=== PATIENT | male | born 1955 | race Caucasian/White ===

== ENCOUNTER → 2018-04-05 | Outpatient (CLI) | payer BC ==
--- NOTE | 2018-04-06 08:13 | CT ---
EXAMINATION TYPE: CT abdomen pelvis w con DATE OF EXAM: 04/05/2018 COMPARISON: NONE HISTORY: LLQ pain with decreased bowel movements and appetite CT DLP: 1514 mGycm Automated exposure control for dose reduction was used. TECHNIQUE: Helical acquisition of images was performed from the lung bases through the pelvis. CONTRAST: Performed with Oral Contrast and with IV Contrast, patient injected with 100 mL of Isovue 300. FINDINGS: LUNG BASES: No significant abnormality is appreciated. LIVER/GB: Hepatic parenchyma is diffusely hypoattenuated in comparison to that of the spleen, most co mmonly seen in hepatic steatosis. This finding limits evaluation for hepatic masses. No gross evidenc e of hepatic mass is seen. No intrahepatic biliary ductal dilatation. No cholelithiasis PANCREAS: No significant abnormality is seen. No ductal dilatation. SPLEEN: No significant abnormality is seen. ADRENALS: No significant abnormality is seen. KIDNEYS: Kidneys enhance and excrete symmetrically without hydronephrosis. FREE AIR: No free air is visualized. REPRODUCTIVE ORGANS: Prostate gland is diffusely heterogenous containing few central zone calcificati ons. Very small bilateral fat filled inguinal hernias are noted. There is also a subcentimeter fat fi lled umbilical hernia. URINARY BLADDER: Tiny wrinkle remnant is noted. Urinary bladder is incompletely distended. ADENOPATHY: No greater than 1 cm short axis lymph nodes are seen within the abdomen or pelvis. OSSEOUS STRUCTURES: Very minimal multilevel degenerative changes are seen of the visualized spine. G eographic peripherally sclerotic regions within the left femoral head and to a lesser degree on the r ight likely represent degenerative change with subchondral cysts/geodes, however MR could be performe d to evaluate for avascular necrosis. No current subchondral collapse. BOWEL: There is long segment bowel wall thickening of the sigmoid colon with numerous surrounding di verticula and minimal pericolonic fat stranding as well as fascial thickening extending posteriorly t o abut the left ureter. No pericolonic fluid collection is seen. No pneumoperitoneum. Appendix is con trast-filled and within normal limits. No bowel dilatation to suggest obstruction. OTHER: Moderate calcific and noncalcific atheromatous plaquing is seen of the abdominal aorta and its branches. Abdominal aorta is of normal course and caliber. IMPRESSION: 1. FINDINGS COMPATIBLE WITH ACUTE UNCOMPLICATED SIGMOID DIVERTICULITIS. NO PNEUMOPERITONEUM OR MARION LONIC ABSCESS. 2. LEFT GREATER THAN RIGHT PERIPHERALLY SCLEROTIC FEMORAL HEAD LESIONS FAVORED TO REPRESENT DEGENERAT CRISTY CHANGE AND GEODE/SUBCHONDRAL CYSTS, HOWEVER FURTHER EVALUATION WITH MR COULD BE PERFORMED TO EVAL UATE FOR AVASCULAR NECROSIS. NO CURRENT EVIDENCE OF SUBCHONDRAL COLLAPSE. 3. HEPATIC STEATOSIS. A [place] level critical message alert has been initiated for Lon Saha MD via the [employer] Critical Results System on 04/06/2018 8:10 AM. This message alert has been sent to Lon rowe MD via the preferences provided by the clinician for the receipt of Radiology Critical Finding s. Message ID [id number].
== END | disposition home or self-care (01) ==
LOC: RADCTMAIN 17:11
PROVIDERS: ATTEND Surgery
DX: K76.0 Fatty (change of) liver, not elsewhere classified (principal)
CPT/HCPCS: 74177; Q9967

== ENCOUNTER → 2018-04-13 | Outpatient (CLI) | payer BC ==
--- NOTE | 2018-04-13 09:02 | US ---
EXAMINATION TYPE: US duplex aorta DATE OF EXAM: 04/13/2018 COMPARISON: CT 04/05/2018 CLINICAL HISTORY: I70.0 Atherosclerosis of aorta. EXAM MEASUREMENTS: Abdominal Aorta: Proximal: 2.3cm A/P Mid: 2.5cm A/P Distal: 2.3cm A/P Bifurcation: 1.2cm A/P right ALLYN and 1.0cm Transverse Left ALLYN Hyperechoic intimal wall changes are noted mid and distal aorta with ectatic appearance mid aorta. Color flow patency is noted throughout aorta and into bilateral common iliac arteries. IMPRESSION: No sonographic evidence of abdominal aortic aneurysm. Moderate atherosclerosis is seen th roughout without focal stenosis.
== END | disposition home or self-care (01) ==
LOC: RADUSWWP 08:05
PROVIDERS: ATTEND Family Medicine
DX: I70.0 Atherosclerosis of aorta (principal)
CPT/HCPCS: 93979

== ENCOUNTER → 2018-05-02 | Outpatient (CLI) | payer BC ==
--- NOTE | 2018-05-03 02:46 | MR ---
EXAMINATION TYPE: MR hip LT wo/w con DATE OF EXAM: 05/02/2018 COMPARISON: NONE HISTORY: Idiopathic aseptic necrosis of femur CONTRAST: Standard multiplanar, multisequence MRI departmental protocol utilizing 9.5 mL intravenous Gadavist g adolinium contrast. FINDINGS: On the STIR images there is abnormal increased signal throughout large area of the proximal left femur involving the femoral head and neck extending into the intertrochanteric region consisten t with edema. There is decreased signal in the subchondral left femoral head that measures 2 x 1 cm. There is a similar appearance of the right proximal femur involving a smaller area. I see no fracture line. There is no significant hip joint fluid. There is narrowing of hip joint spaces. The bony pelv is appears intact. There is no evidence of a pelvic mass. There is no sign of free fluid in the pelvi s. Bladder distends smoothly. There is no evidence of soft tissue mass. 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 This is worse on the left side with additional extensive bone edema involving the left femoral head and femoral neck. No f racture line seen. No significant collapse of the articular surfaces. Osteoarthritic narrowing of the hip joint spaces.
== END ==
LOC: RADMRIMAIN 07:09
PROVIDERS: ATTEND Family Medicine
DX: M87.852 Other osteonecrosis, left femur (principal); M87.851 Other osteonecrosis, right femur
CPT/HCPCS: 73723; A9581

== ENCOUNTER → 2018-06-19 | Outpatient (CLI) | payer BC ==
--- NOTE | 2018-06-19 22:22 | CT ---
EXAMINATION TYPE: CT brain wo/w con DATE OF EXAM: 06/19/2018 COMPARISON: HISTORY: Dizziness and memory loss x5 months. Transient memory loss per order. CT DLP: 2139.7 mGycm Automated exposure control for dose reduction was used. CONTRAST: CT scan of the head is performed without and with IV Contrast, patient injected with 100ml mL of Isov ue M300. FINDINGS: Noncontrast images show no acute intracranial hemorrhage or midline shift. There is ventricular and s ulcal prominence most prominent over the bilateral frontal lobes consistent with mild to borderline m oderate atrophy. Irene-white matter differentiation is fairly well preserved. Postcontrast images dieudonne w no suspicious enhancing intraparenchymal mass. The globes are intact and the visualized sinuses are clear. Mastoid air cells show no suspicious opacification. IMPRESSION: Mild to borderline moderate symmetric diffuse frontal lobe atrophy. No suspicious enhance ment noted.
--- NOTE | 2018-06-20 11:26 | US ---
EXAMINATION TYPE: US carotid duplex BILAT DATE OF EXAM: 06/19/2018 COMPARISON: NONE CLINICAL HISTORY: Transient memory loss R41.3. EXAM MEASUREMENTS: RIGHT: Peak Systolic Velocity (PSV) cm/sec ----- Right CCA: 75.3 ----- Right ICA: 75.2 ----- Right ECA: 82.6 ICA/CCA ratio: 1.0 RIGHT: End Diastole cm/sec ----- Right CCA: 19.1 ----- Right ICA: 29.9 ----- Right ECA: 10.9 LEFT: Peak Systolic Velocity (PSV) cm/sec ----- Left CCA: 73.2 ----- Left ICA: 75.3 ----- Left ECA: 87.5 ICA/CCA ratio: 1.0 LEFT: End Diastole cm/sec ----- Left CCA: 20.0 ----- Left ICA: 29.3 ----- Left ECA: 10.8 VERTEBRALS (direction of flow): Right Vertebral: Antegrade Left Vertebral: Antegrade Rhythm: Normal No significant velocity elevations, mild plaque. Atheromatous plaquing and intimal thickening is present bilaterally. IMPRESSION: Intimal thickening atheromatous plaquing present bilaterally without significant flow-li miting stenosis. Criteria for Assigning % of Stenosis / Diameter reduction (Estimation based on the indirect measurements of the internal carotid artery velocities (ICA PSV). 1. Normal (no stenosis)=ICA PSV < 125 cm/s: ratio < 2.0: ICA EDV<40 cm/s. 2. Less than 50% stenosis=ICA PSV < 125 cm/s: ratio < 2.0: ICA EDV<40 cm/s. 3. 50 to 69% stenosis=ICA PSV of 125 to 230 cm/s: ration 2.0 ? 4.0: ICA EDV 40-100 cm/s. 4. Greater than 70% stenosis to near occlusion= ICA PSV > 230 cm/s: ratio > 4.0: ICA EDV > 100 cm/s. 5. Near occlusion= ICA PSV velocities may be low or undetectable: variable ratio and ICA EDV. 6. Total occlusion=unable to detect flow.
== END | disposition home or self-care (01) ==
LOC: RADCTMAIN 16:22
PROVIDERS: ATTEND Family Medicine
DX: G31.9 Degenerative disease of nervous system, unspecified (principal); I67.2 Cerebral atherosclerosis; R41.3 Other amnesia
CPT/HCPCS: 93880; 70470; Q9967

== ENCOUNTER → 2018-06-29 | Outpatient (CLI) | payer BC ==
--- NOTE | 2018-06-29 15:12 | CT ---
EXAMINATION TYPE: CT abdomen pelvis w con DATE OF EXAM: 06/29/2018 COMPARISON: 04/05/2018 HISTORY: LLQ pain CT DLP: 761.4 mGycm Automated exposure control for dose reduction was used. TECHNIQUE: Helical acquisition of images was performed from the lung bases through the pelvis. CONTRAST: Performed with Oral Contrast and with IV Contrast, patient injected with 100 mL of Isovue 300. FINDINGS: LUNG BASES: Punctate 2 mm right pulmonary nodule seen on series 4 image 33 within the posterior right lower lobe. This is not within the [id number] on the prior exam. LIVER/GB: Hepatic parenchyma is diffusely hypoattenuated in comparison to that of the spleen, most co mmonly seen in hepatic steatosis. This finding limits evaluation for hepatic masses. No gross evidenc e of hepatic mass is seen. No intrahepatic biliary ductal dilatation. No cholelithiasis PANCREAS: No significant abnormality is seen. No ductal dilatation. SPLEEN: No splenomegaly. ADRENALS: No nodularity or thickening. KIDNEYS: No significant abnormality is seen. FREE AIR: No free air is visualized. REPRODUCTIVE ORGANS: Prostate gland is again diffusely heterogenous. Very small bilateral fat filled inguinal hernias are again seen. Subcentimeter fat filled umbilical hernia is also again noted. URINARY BLADDER: Urinary bladder is nondistended. ADENOPATHY: No greater than 1 cm short axis lymph nodes are seen within the abdomen or pelvis. OSSEOUS STRUCTURES: Again there are findings within the femoral heads suggestive of avascular necros is with serpiginous linear sclerotic bands. Alternatively degenerative geodes could create this findi ng. No current evidence of subchondral collapse of the femoral heads. Minimal multilevel degenerative changes of the spine are seen. BOWEL: There is focal inflammatory fat stranding surrounding the descending colon and proximal sigmo id colon with adjacent fascial plane thickening surrounding multiple diverticula. This is within a re latively short segment and therefore represents acute diverticulitis. No evidence of pneumoperitoneum is seen at this time or pericolonic fluid collection to suggest abscess. Long segment bowel wall thi ckening is seen of the sigmoid colon suggesting a chronic component. There is no dilated large or sma ll bowel to suggest reactive ileus or obstruction. IMPRESSION: 1. Findings of acute on chronic descending colonic and sigmoid uncomplicated diverticulitis with no c urrent pericolonic abscess or pneumoperitoneum. These findings have progressed from the prior. Given the persistence colonoscopy could be performed to ensure no underlying inciting neoplasm. 2. Findings again suggest bilateral femoral head avascular necrosis without current subchondral colla pse. MRI could further evaluate/confirm these findings. A [place] level critical message alert has been initiated for Lon Saha MD via the [employer] Critical Results System on 06/29/2018 3:09 PM. This message alert has been sent to Lon cohen MD via the preferences provided by the clinician for the receipt of Radiology Critical Findings . Message ID [id number].
== END | disposition home or self-care (01) ==
LOC: RADCTMAIN 12:39
PROVIDERS: ATTEND Surgery
DX: K57.32 Diverticulitis of large intestine without perforation or abscess without bleeding (principal)
CPT/HCPCS: 74177; Q9967

== ENCOUNTER → 2018-08-04 | Outpatient (CLI) | payer BC ==
--- NOTE | 2018-08-04 16:37 | MR ---
EXAMINATION TYPE: MR angio head wo con DATE OF EXAM: 08/04/2018 COMPARISON: NONE HISTORY: Dizziness/giddiness TECHNIQUE: Time of flight images focusing on the [place] were performed without contrast.. 2-D and 3-D postprocessing imaging is performed on MRI scanner. FINDINGS: There is codominant vertebral basilar system. Vertebral arteries are patent to basilar junc tion. There is hypoplastic left P1 segment with filling of left P2 segment due to patent posterior co mmunicating artery on the left. There is hypoplastic right posterior communicating artery noted. Images of the anterior circulation show patent anterior communicating artery. There is no significant focal stenosis or aneurysmal change in the anterior circulation. IMPRESSION: No aneurysmal change at the level of the [place].
--- NOTE | 2018-08-04 17:24 | MR ---
EXAMINATION TYPE: MR brain wo/w con DATE OF EXAM: 08/04/2018 COMPARISON: CT brain 06/19/2018 HISTORY: Dizziness/giddiness TECHNIQUE: Multiplanar, multisequence images of the brain and brainstem is performed without and with IV contras t, utilizing 7.5 mL intravenous Gadavist . FINDINGS: Diffusion weighted images demonstrate no evidence of a recent infarct or other diffusion ab normality. White matter: There are approximately 20-25 areas of abnormal signal scattered throughout the white m atter bilaterally. All measure less than 5 mm. No callosal lesions. No lesions perpendicular to the v entricular system. No enhancing lesions. There are changes of chronic sinusitis. Mild generalized degenerative change seen. Partially empty se lla turcica noted. Craniocervical junction maintained. No enhancing mass or mass effect. No cerebellopontine angle mass. IMPRESSION: 1. Mild degenerative change and nonspecific white matter changes. 2. Changes of chronic sinusitis
== END | disposition home or self-care (01) ==
LOC: RADMRIMAIN 15:31
PROVIDERS: ATTEND Family Medicine
DX: R90.89 Other abnormal findings on diagnostic imaging of central nervous system (principal); J32.9 Chronic sinusitis, unspecified
CPT/HCPCS: 70544; 70553; A9581

== ENCOUNTER → 2018-08-15 | Outpatient (CLI) | payer BC ==
--- NOTE | 2018-08-15 22:43 | CT ---
EXAMINATION TYPE: CT abdomen pelvis w con DATE OF EXAM: 08/15/2018 COMPARISON: 06/29/2018 HISTORY: 63-year-old male with pain, diverticulitis TECHNIQUE: Contiguous axial scanning of the abdomen and pelvis following administration of 100 ml Iso christoph 300 IV contrast. Delayed images through the kidneys and coronal/sagittal reconstructions perform ed. CT DLP: 1115 mGycm Automated exposure control for dose reduction was used. FINDINGS: Heart normal size without pericardial effusion. Lung bases clear without pleural effusion. Liver upper limits of normal in size at 17.5 cm. No focal lesion seen. No biliary ductal dilatation. Portal venous system is patent. Small hiatal hernia. Gallbladder, adrenal glands, kidneys, spleen, and pancreas appear within normal limits. Fusiform ectasia of the infrarenal abdominal aorta at 2.6 cm with mild atherosclerotic calcifications . Scattered prominent retroperitoneal lymph nodes show large fatty hilum measure up to 1.1 cm, unchange d from 06/29/2018 likely reactive/post inflammatory. No dilated small bowel, free fluid, or free air. There are no abnormal appendix. Oral contrast progressed through the lower descending colon. There is minimal residual strandy edema adjacent to the lower descending colon but were resolution of the previous wall thickening. There is persistent circumferential wall thickening along the proximal to mid sigmoid colon, axial im age 71 may relate to incomplete distention. Bladder is urine distended. No abnormal fluid collection in the pelvis or pelvic lymphadenopathy. Bones: There is bilateral femoral head AVN without subarticular collapse. Bilateral L5 hemisacralizat ion with degenerative disc disease lower lumbar spine. No osseous destructive process. IMPRESSION: 1. IMPROVEMENT IN THE PREVIOUS ACUTE DIVERTICULITIS ALONG THE LOWER DESCENDING COLON. MILD RESIDUAL S TRANDY EDEMA REMAINS. 2. PERSISTENT CIRCUMFERENTIAL WALL THICKENING OF THE PROXIMAL TO MID SIGMOID COLON WHICH MAY RELATE T O CHRONIC DIVERTICULITIS. DIRECT VISUALIZATION IF ROUTINE SCREENING COLONOSCOPY IS NOT BEING PERFORME D. 3. SMALL HIATAL HERNIA. 4. BILATERAL FEMORAL HEAD AVN. CORRELATE FOR PATIENT RISK FACTORS.
== END | disposition home or self-care (01) ==
LOC: RADCTMAIN 14:32
PROVIDERS: ATTEND Family Medicine
DX: K44.9 Diaphragmatic hernia without obstruction or gangrene (principal); K57.32 Diverticulitis of large intestine without perforation or abscess without bleeding
CPT/HCPCS: 74177; Q9967

== ENCOUNTER 2019-12-31 01:26 | Emergency (ER) | payer BC ==
[2019-12-31] MEDS ORDERED: SODIUM CHLORIDE 0.9% 1,000 ML IV ONE (01:43)
--- NOTE | 2019-12-31 01:54 | CT ---
EXAMINATION TYPE: CT brain ferny wo con DATE OF EXAM: 12/31/2019 COMPARISON: CT brain 06/19/2018 HISTORY: Patient presents for neuro deficits. CT DLP: 1559.4 mGycm Automated exposure control for dose reduction was used. Multiple axial sections were obtained of the brain without contrast. Multiple axial sections were obtained from the skull base to T1 vertebra without contrast. FINDINGS: There is mild cerebral atrophy. There is no mass effect nor midline shift. There is no sign of intrac ranial hemorrhage. Calvarium is intact. The skull base is intact. There is no evidence of cerebral ed geovanna. Cervical vertebra have normal alignment. There is some narrowing and spurring from C4 to C6 vertebra. The facet joints are intact. The posterior elements are intact. There is no evidence of a fracture. IMPRESSION: Mild cerebral atrophy. No acute intracranial abnormality. No change. Minor degenerative disc changes in the lower cervical spine. No fracture seen.
--- NOTE | 2019-12-31 01:56 | XR ---
EXAMINATION TYPE: XR chest 1V portable DATE OF EXAM: 12/31/2019 COMPARISON: 10/31/2010 HISTORY: Cough and congestion TECHNIQUE: FINDINGS: Supine view shows no heart failure nor confluent pneumonic infiltrate. There is minimal ate lectasis right lung base. There are chest leads. Trachea is midline. IMPRESSION: Mild subsegmental atelectasis. This appears new compared to old exam. Normal heart.
--- NOTE | 2019-12-31 02:02 | ED ---
Altered Mental Status HPI - General Stated Complaint: altered mental status Time Seen by Provider: 12/31/19 01:36 Source: patient, EMS Mode of arrival: EMS Limitations: altered mental status - History of Present Illness Initial Comments: Patient's 64-year-old man brought to be evaluated for altered mental status. The patient had been in bed and then reportedly had gotten up and fell striking his brow. He was then slurring his speech and not able to support himself so EMS was phoned. Patient not able to give much history appears intoxicated versus delirious. MD Complaint: altered mental status, confusion -: hour(s) Severity: severe Consistency of Symptoms: unknown Associated Symptoms: syncope, difficulty walking - Related Data Allergies Allergy/AdvReac Type Severity Reaction Status Date / Time No Known Allergies Allergy Verified 12/31/19 02:06 Review of Systems ROS Statement: Those systems with pertinent positive or pertinent negative responses have been documented in the HPI. ROS Other: All systems not noted in ROS Statement are negative. Limitations: ROS unobtainable due to patients medical condition Past Medical History Past Medical History: Unable to Obtain History of Any Multi-Drug Resistant Organisms: Unobtainable Past Surgical History: Unable to Obtain Past Psychological History: Unable to Obtain Smoking Status: Unknown if ever smoked Past Alcohol Use History: Abuse, Daily, Heavy Past Drug Use History: Unable to Obtain General Exam Limitations: no limitations General appearance: appears intoxicated, obtunded Head exam: Present: normocephalic Eye exam: Present: PERRL, EOMI, nystagmus, periorbital swelling. Absent: scleral icterus, conjunctival injection, periorbital tenderness ENT exam: Present: normal oropharynx Neck exam: Present: normal inspection, full ROM. Absent: tenderness, meningismus Respiratory exam: Present: normal lung sounds bilaterally. Absent: respiratory distress, wheezes, rales, rhonchi, stridor, chest wall tenderness Cardiovascular Exam: Present: regular rate, normal rhythm, normal heart sounds. Absent: systolic murmur, diastolic murmur, rubs, gallop GI/Abdominal exam: Present: soft. Absent: distended, tenderness, guarding, rebound, rigid, mass Extremities exam: Present: normal inspection, normal capillary refill. Absent: pedal edema, calf tenderness Back exam: Present: normal inspection. Absent: CVA tenderness (R), CVA tenderness (L), vertebral tenderness Neurological exam: Present: altered, CN II-XII intact, motor sensory deficit, other (Patient confused and disoriented with this mildly slurred speech and mild ataxia. No focal neurologic findings). Absent: oriented X3 (Patient is oriented to person) Skin exam: Present: warm, dry, normal color, other (Laceration to left brow approximately 2 cm.) Course Vital Signs 12/31/19 12/31/19 12/31/19 01:30 01:45 02:00 Temperature 97.4 F L 97.4 F L Pulse Rate 78 77 76 Respiratory 14 14 14 Rate Blood Pressure 131/88 137/87 133/77 O2 Sat by Pulse 97 98 97 Oximetry 12/31/19 12/31/19 12/31/19 02:15 02:30 02:45 Temperature Pulse Rate 75 78 72 Respiratory 15 15 15 Rate Blood Pressure 120/81 126/83 112/78 O2 Sat by Pulse 98 98 96 Oximetry 12/31/19 12/31/19 12/31/19 03:15 03:45 07:42 Temperature 97.8 F Pulse Rate 72 73 81 Respiratory 16 16 15 Rate Blood Pressure 143/84 141/65 147/89 O2 Sat by Pulse 97 96 98 Oximetry Procedures - Laceration Laceration #1 Consent Obtained: verbal consent Indication: laceration Site: face Description: linear Depth: simple, single layer Type of Sutures: other (Skin glue) Technique: simple, interrupted Patient Tolerated Procedure: well, no complications Medical Decision Making - Lab Data Result diagrams: 12/31/19 01:37 12/31/19 01:37 Lab Results 12/31/19 12/31/19 12/31/19 Range/Units 01:37 01:37 01:37 WBC 7.6 (3.8-10.6) k/uL RBC 4.46 (4.30-5.90) m/uL Hgb 14.5 (13.0-17.5) gm/dL Hct 45.1 (39.0-53.0) % MCV 101.2 H (80.0-100.0) fL MCH 32.6 (25.0-35.0) pg MCHC 32.2 (31.0-37.0) g/dL RDW 12.4 (11.5-15.5) % Plt Count 218 (150-450) k/uL Neutrophils % (Manual) 41 % Band Neutrophils % 1 % Lymphocytes % (Manual) 39 % Monocytes % (Manual) 15 % Eosinophils % (Manual) 4 % Neutrophils # (Manual) 3.10 (1.3-7.7) k/uL Lymphocytes # (Manual) 2.96 (1.0-4.8) k/uL Monocytes # (Manual) 1.14 H (0-1.0) k/uL Eosinophils # (Manual) 0.30 (0-0.7) k/uL Nucleated RBCs 0 (0-0) /100 WBC Manual Slide Review Performed PT 9.7 (9.0-12.0) sec INR 0.9 (<1.2) APTT 23.7 (22.0-30.0) sec Sodium 143 (137-145) mmol/L Potassium 4.8 (3.5-5.1) mmol/L Chloride 109 H (98-107) mmol/L Carbon Dioxide 24 (22-30) mmol/L Anion Gap 10 mmol/L BUN 20 (9-20) mg/dL Creatinine 0.84 (0.66-1.25) mg/dL Est GFR (CKD-EPI)AfAm >90 (>60 ml/min/1.73 sqM) Est GFR (CKD-EPI)NonAf >90 (>60 ml/min/1.73 sqM) Glucose 103 H (74-99) mg/dL Calcium 8.9 (8.4-10.2) mg/dL Total Bilirubin 0.4 (0.2-1.3) mg/dL AST 56 (17-59) U/L ALT 40 (4-49) U/L Alkaline Phosphatase 44 (38-126) U/L Troponin I (0.000-0.034) ng/mL Total Protein 7.3 (6.3-8.2) g/dL Albumin 4.4 (3.5-5.0) g/dL Urine Color Urine Appearance (Clear) Urine pH (5.0-8.0) Ur Specific [place] (1.001-1.035) Urine Protein (Negative) Urine Glucose (UA) (Negative) Urine Ketones (Negative) Urine Blood (Negative) Urine Nitrite (Negative) Urine Bilirubin (Negative) Urine Urobilinogen (<2.0) mg/dL Ur Leukocyte Esterase (Negative) Urine Opiates Screen (NotDetected) Ur Oxycodone Screen (NotDetected) Urine Methadone Screen (NotDetected) Ur Propoxyphene Screen (NotDetected) Ur Barbiturates Screen (NotDetected) U Tricyclic Antidepress (NotDetected) Ur Phencyclidine Scrn (NotDetected) Ur Amphetamines Screen (NotDetected) U Methamphetamines Scrn (NotDetected) U Benzodiazepines Scrn (NotDetected) Urine Cocaine Screen (NotDetected) U Marijuana (THC) Screen (NotDetected) Serum Alcohol 286 H* mg/dL 12/31/19 12/31/19 12/31/19 Range/Units 01:37 03:20 03:20 WBC (3.8-10.6) k/uL RBC (4.30-5.90) m/uL Hgb (13.0-17.5) gm/dL Hct (39.0-53.0) % MCV (80.0-100.0) fL MCH (25.0-35.0) pg MCHC (31.0-37.0) g/dL RDW (11.5-15.5) % Plt Count (150-450) k/uL Neutrophils % (Manual) % Band Neutrophils % % Lymphocytes % (Manual) % Monocytes % (Manual) % Eosinophils % (Manual) % Neutrophils # (Manual) (1.3-7.7) k/uL Lymphocytes # (Manual) (1.0-4.8) k/uL Monocytes # (Manual) (0-1.0) k/uL Eosinophils # (Manual) (0-0.7) k/uL Nucleated RBCs (0-0) /100 WBC Manual Slide Review PT (9.0-12.0) sec INR (<1.2) APTT (22.0-30.0) sec Sodium (137-145) mmol/L Potassium (3.5-5.1) mmol/L Chloride (98-107) mmol/L Carbon Dioxide (22-30) mmol/L Anion Gap mmol/L BUN (9-20) mg/dL Creatinine (0.66-1.25) mg/dL Est GFR (CKD-EPI)AfAm (>60 ml/min/1.73 sqM) Est GFR (CKD-EPI)NonAf (>60 ml/min/1.73 sqM) Glucose (74-99) mg/dL Calcium (8.4-10.2) mg/dL Total Bilirubin (0.2-1.3) mg/dL AST (17-59) U/L ALT (4-49) U/L Alkaline Phosphatase (38-126) U/L Troponin I <0.012 (0.000-0.034) ng/mL Total Protein (6.3-8.2) g/dL Albumin (3.5-5.0) g/dL Urine Color Light Yellow Urine Appearance Clear (Clear) Urine pH 5.0 (5.0-8.0) Ur Specific [place] 1.007 (1.001-1.035) Urine Protein Negative (Negative) Urine Glucose (UA) Negative (Negative) Urine Ketones Negative (Negative) Urine Blood Negative (Negative) Urine Nitrite Negative (Negative) Urine Bilirubin Negative (Negative) Urine Urobilinogen <2.0 (<2.0) mg/dL Ur Leukocyte Esterase Negative (Negative) Urine Opiates Screen Not Detected (NotDetected) Ur Oxycodone Screen Not Detected (NotDetected) Urine Methadone Screen Not Detected (NotDetected) Ur Propoxyphene Screen Not Detected (NotDetected) Ur Barbiturates Screen Not Detected (NotDetected) U Tricyclic Antidepress Not Detected (NotDetected) Ur Phencyclidine Scrn Not Detected (NotDetected) Ur Amphetamines Screen Not Detected (NotDetected) U Methamphetamines Scrn Not Detected (NotDetected) U Benzodiazepines Scrn Not Detected (NotDetected) Urine Cocaine Screen Not Detected (NotDetected) U Marijuana (THC) Screen Not Detected (NotDetected) Serum Alcohol mg/dL - EKG Data -: EKG Interpreted by Mn EKG shows normal: sinus rhythm, axis (Normal), intervals (Normal), QRS complexes (Normal), ST-T waves (Normal) Rate: normal (Rate 73 bpm) Interpretation: normal EKG Disposition Clinical Impression: Alcohol intoxication, Laceration of face Disposition: HOME SELF-CARE Condition: Good Instructions (If sedation given, give patient instructions): Laceration (ED), Alcohol Intoxication (ED) Is patient prescribed a controlled substance at d/c from ED?: No Referrals: Camilo Juarez MD [Primary Care Provider] - 1-2 days
[2019-12-31 02:03] LABS: HCT 45.1 % (39.0-53.0); HGB 14.5 gm/dL (13.0-17.5); MCH 32.6 pg (25.0-35.0); MCHC 32.2 g/dL (31.0-37.0); MCV 101.2 fL (80.0-100.0); Mean Platelet Volume 7.6; Platelet Count 218 k/uL (150-450); RBC 4.46 m/uL (4.30-5.90); RDW 12.4 % (11.5-15.5); WBC 7.6 k/uL (3.8-10.6)
[2019-12-31 02:08] LABS: INR 0.9 (<1.2); Partial Thromboplastin Time 23.7 sec (22.0-30.0); Prothrombin Time 9.7 sec (9.0-12.0)
[2019-12-31 02:10] LABS: ALT 40 U/L (4-49); African American GFR (CKD) >90 (>60 ml/min/1.73 sqM); Albumin 4.4 g/dL (3.5-5.0); Anion Gap 10 mmol/L; Blood Urea Nitrogen 20 mg/dL (9-20); Calcium 8.9 mg/dL (8.4-10.2); Carbon Dioxide 24 mmol/L (22-30); Chloride 109 mmol/L (98-107); Glucose 103 mg/dL (74-99); Non-African American GFR(CKD) >90 (>60 ml/min/1.73 sqM); Sodium 143 mmol/L (137-145); Total Bilirubin 0.4 mg/dL (0.2-1.3); Total Protein 7.3 g/dL (6.3-8.2)
[2019-12-31 02:13] LABS: AST 56 U/L (17-59); Alcohol 286 mg/dL; Potassium 4.8 mmol/L (3.5-5.1)
[2019-12-31 02:14] LABS: Alkaline Phosphatase 44 U/L (38-126)
[2019-12-31 02:52] LABS: Band Neutrophils % 1 %; Lymphocytes # (M) 2.96 k/uL (1.0-4.8); Monocytes # (M) 1.14 k/uL (0-1.0); Neutrophils % (M) 41 %; Nucleated Red Blood Cells 0 /100 WBC (0-0); Total Cells Counted 100
[2019-12-31 03:28] LABS: Appearance,Urine Clear (Clear); Bilirubin,Urine Negative (Negative); Blood,Urine Negative (Negative); Color,Urine Light Yellow; Glucose,Urine (UA) Negative (Negative); Ketones,Urine Negative (Negative); Leukocyte Esterase,Urine Negative (Negative); Nitrite,Urine Negative (Negative); Protein,Urine Negative (Negative); Specific Gravity,Urine 1.007 (1.001-1.035); Urobilinogen,Urine <2.0 mg/dL (<2.0)
[2019-12-31 03:37] LABS: Amphetamine Screen,Urine Not Detected (NotDetected); Barbiturate Screen,Urine Not Detected (NotDetected); Benzodiazepines Screen,Urine Not Detected (NotDetected); Cocaine Screen,Urine Not Detected (NotDetected); Methadone Screen, Urine Not Detected (NotDetected); Opiate Screen,Urine Not Detected (NotDetected); Oxycodone Screen, Urine Not Detected (NotDetected); Phencyclidine Screen,Urine Not Detected (NotDetected); Tricyclic Antidepressant,Urine Not Detected (NotDetected); Urn Cannabinoid Scrn Not Detected (NotDetected)
[2019-12-31] MEDS ORDERED: TOPICAL SKIN ADHESIVE 1 EACH AMP TOPICAL ONE (03:43)
[2019-12-31 09:36] VITALS: BP 149/99; PULSE 90; RESP 17; TEMP 98.2
== END 2019-12-31 09:36 | disposition home or self-care (01) ==
LOC: EC 01:26
DX: F10.129 Alcohol abuse with intoxication, unspecified (principal); S01.81XA Laceration without foreign body of other part of head, initial encounter
CPT/HCPCS: 12011; 36415; 70450; 71045; 72125; 80053; 80306; 80320; 81003; 84484; 85025; 85610; 85730; 93005; 96360; 99285

== ENCOUNTER → 2021-02-25 | Outpatient (CLI) | payer BC ==
--- NOTE | 2021-02-25 10:35 | XR ---
EXAMINATION TYPE: XR lumbosacral spine min 4V DATE OF EXAM: 02/25/2021 COMPARISON: None HISTORY: Low back pain TECHNIQUE: 5 view lumbar spine FINDINGS: There appear to be 4 lumbar type vertebral bodies. L1 may have rudimentary ribs. Plain film correlation be recommended prior to any surgical intervention. The pedicles are intact. Facet hypertrophy is present mild disc space narrowing is present at the low est lumbar level IMPRESSION: 1. 4 lumbar type vertebral bodies.
--- NOTE | 2021-02-25 10:46 | XR ---
EXAMINATION TYPE: XR Hip Bilateral and AP pelvis DATE OF EXAM: 02/25/2021 COMPARISON: None HISTORY: Low back pain TECHNIQUE: AP pelvis and two-view bilateral hips FINDINGS: Sacroiliac joint and symphysis pubis are normal. No acute fractures are evident. Femoral he ads articulate with the acetabulum. Minimal symmetrical joint space narrowing of bilateral hips may b e present. No acute fractures of the proximal femurs are evident. IMPRESSION: 1. Minimal degenerative joint changes bilateral hips
== END | disposition home or self-care (01) ==
LOC: RADXRMAIN 09:41
PROVIDERS: ATTEND Family Medicine
DX: M16.0 Bilateral primary osteoarthritis of hip (principal)
CPT/HCPCS: 72110; 73521

== ENCOUNTER → 2021-03-25 | Outpatient (CLI) | payer BC ==
--- NOTE | 2021-03-25 16:20 | XR ---
EXAMINATION TYPE: XR abdomen acute w cxr DATE OF EXAM: 03/25/2021 CLINICAL HISTORY: Lower abdominal pain with nausea. TECHNIQUE: Single frontal view of chest is obtained. Supine and upright views of the abdomen are acq uired. COMPARISON: Chest x-ray of December 31, 2019. CT abdomen and pelvis August 15, 2018 FINDINGS: The lungs are grossly clear on current study without pleural effusion or pneumothorax. Ca rdiac silhouette size appears within normal limits currently. Osseous structures are intact. Gas is noted in nondistended stomach and scattered small bowel loops. Gas and fecal material is seen in nondistended colon. Left-sided pelvic phlebolith. No free air. Sclerosis left femoral head consis tent with avascular necrosis is redemonstrated. IMPRESSION: 1. No acute pulmonary process. 2. Overall nonobstructive bowel gas pattern.
== END | disposition home or self-care (01) ==
LOC: RADXRMAIN 15:46
PROVIDERS: ATTEND Family Medicine
DX: R10.30 Lower abdominal pain, unspecified (principal); R11.0 Nausea
CPT/HCPCS: 74022

== ENCOUNTER → 2021-03-31 | Outpatient (CLI) | payer BC ==
--- NOTE | 2021-03-31 11:30 | US ---
EXAMINATION TYPE: US abdomen comp/pelvis limited DATE OF EXAM: 03/31/2021 COMPARISON: CT, US CLINICAL HISTORY: R10.9 Unspecified abdominal pain. constant hypogastric pain; history of diverticuli tis, weight loss 21 pounds in last month; nausea EXAM MEASUREMENTS: Liver Length: 14.1 cm Gallbladder Wall: 0.2 cm CBD: 0.3 cm Spleen: 10.1 cm Right Kidney: 10.9 x 6.9 x 6.9 cm Left Kidney: 11.6 x 5.6 x 6.6 cm Pancreas: Obscured by bowel gas Liver: heterogeneous appearance Gallbladder: wnl CBD: wnl Spleen: wnl Right Kidney: No hydronephrosis or masses seen Left Kidney: No hydronephrosis or masses seen Upper IVC: wnl Abd Aorta: ectatic appearance noted especially distally; A/P measure here = 2.6cm; intimal thickenin g is noted distally. Bladder: wnl; not prepped for full bladder assessment Bilateral Jets Seen yes IMPRESSION: 1. Heterogeneous pattern of liver is nonspecific could be associated with hepatic steatosis or hepati tis. Correlate clinically.
== END | disposition home or self-care (01) ==
LOC: RADUSWWP 10:32
PROVIDERS: ATTEND Family Medicine
DX: R93.2 Abnormal findings on diagnostic imaging of liver and biliary tract (principal)
CPT/HCPCS: 76700; 76857

== ENCOUNTER → 2021-03-31 | Outpatient (CLI) | payer BC | END | disposition home or self-care (01) | LOC: LABWHC1 10:22 | PROVIDERS: ATTEND Surgery | DX: Z20.822 Contact with and (suspected) exposure to COVID-19 (principal); R10.84 Generalized abdominal pain | CPT/HCPCS: U0003; C9803; U0005 ==

== ENCOUNTER 2021-04-10 16:38 | Inpatient (IN) | payer BC ==
[2021-04-10] MEDS ORDERED: SODIUM CHLORIDE 0.9% 1,000 ML IV STA ×2 (19:13→22:07)
[2021-04-10 19:30] LABS: HCT 42.9 % (39.0-53.0); HGB 13.6 gm/dL (13.0-17.5); MCHC 31.7 g/dL (31.0-37.0); MCV 97.8 fL (80.0-100.0); Mean Platelet Volume 8.3; Platelet Count 207 k/uL (150-450); RBC 4.39 m/uL (4.30-5.90); RDW 13.5 % (11.5-15.5); WBC 6.6 k/uL (3.8-10.6)
--- NOTE | 2021-04-10 19:38 | ED ---
Abdominal Pain HPI - General Chief Complaint: Abdominal Pain Stated Complaint: Abd Pain, Weakness Time Seen by Provider: 04/10/21 19:09 Source: patient Mode of arrival: ambulatory Limitations: no limitations - History of Present Illness Initial Comments: 65-year-old male with history of diverticulitis presented emergency Department with a chief complaint of abdominal pain. Patient reports his been having intermittent pain in the left lower quadrant region for the past several months. Reports he decreased his oral intake in order to help with his possible diverticulitis. Patient states his symptoms are not improved. Patient does have history of alcohol abuse as well and drinks about one bottle of wine daily. He denies any infectious or obstructive urinary symptoms. Denies hematuria, hematochezia or melena. Denies any nausea or vomiting or diarrhea. - Related Data Home Medications Medication Instructions Recorded Confirmed Atorvastatin Calcium [Lipitor] 10 mg PO DAILY 04/10/21 04/10/21 Levothyroxine Sodium [Synthroid] 200 mcg PO DAILY 04/10/21 04/10/21 Zolpidem Tartrate [Ambien Cr] 12.5 mg PO HS 04/10/21 04/10/21 Allergies Allergy/AdvReac Type Severity Reaction Status Date / Time No Known Allergies Allergy Verified 04/10/21 20:46 Review of Systems ROS Statement: Those systems with pertinent positive or pertinent negative responses have been documented in the HPI. ROS Other: All systems not noted in ROS Statement are negative. Past Medical History Past Medical History: Unable to Obtain Additional Past Medical History / Comment(s): neck pain History of Any Multi-Drug Resistant Organisms: Unobtainable Past Surgical History: Unable to Obtain Past Psychological History: Unable to Obtain Smoking Status: Never smoker Past Alcohol Use History: Abuse, Daily, Heavy Past Drug Use History: Unable to Obtain General Exam Limitations: no limitations General appearance: alert, in no apparent distress Head exam: Present: atraumatic, normocephalic, normal inspection Eye exam: Present: normal appearance, PERRL, EOMI Pupils: Present: normal accommodation ENT exam: Present: normal exam, normal oropharynx, mucous membranes moist, TM's normal bilaterally, normal external ear exam Neck exam: Present: normal inspection, full ROM. Absent: tenderness Respiratory exam: Present: normal lung sounds bilaterally. Absent: respiratory distress, wheezes, rales, rhonchi, stridor, chest wall tenderness, accessory muscle use Cardiovascular Exam: Present: regular rate, normal rhythm, normal heart sounds. Absent: systolic murmur GI/Abdominal exam: Present: soft, tenderness (Left lower quadrant tenderness). Absent: distended, guarding, rebound, rigid Extremities exam: Present: normal inspection, full ROM, normal capillary refill. Absent: tenderness, pedal edema, joint swelling Back exam: Present: normal inspection, full ROM. Absent: tenderness, CVA tenderness (R), CVA tenderness (L), muscle spasm, paraspinal tenderness, vertebral tenderness Neurological exam: Present: alert, oriented X3 Psychiatric exam: Present: normal affect, normal mood Skin exam: Present: warm, dry, intact, normal color Course Vital Signs 04/10/21 04/10/21 04/10/21 17:42 19:07 20:00 Temperature 98.5 F 98.3 F Pulse Rate 95 77 85 Respiratory 18 18 20 Rate Blood Pressure 106/75 108/70 O2 Sat by Pulse 99 96 97 Oximetry 04/10/21 04/10/21 04/10/21 21:00 21:56 22:00 Temperature Pulse Rate 80 81 84 Respiratory 18 20 20 Rate Blood Pressure 89/52 95/54 107/80 O2 Sat by Pulse 96 95 97 Oximetry Medical Decision Making - Medical Decision Making 55-year-old male presents to the emergency department with a chief complaint of abdominal pain. On physical examination left lower quadrant abdominal tenderness. Patient is history of chronic alcohol abuse. Elevated BUN and creatinine. Lipase of 2200. Patient appears to have pancreatitis. CT of the abdomen and pelvis reveals no signs of diverticulitis but there is diverticulosis. There is an 8 mm incidental finding in the left lower lobe. Concern for metastatic disease. Patient also has a finding of 2 large bilateral adrenal masses for which there is a concern of metastatic disease versus lympho ma. Patient given analgesia and IV fluids. Nothing by mouth. I spoke to Camilo Hardy NP who will admit for Dr. Noble. Case discussed with Oncology and consult GI on consult - Lab Data Result diagrams: 04/10/21 19:17 04/10/21 19:17 Lab Results 04/10/21 04/10/21 Range/Units 19:17 19:17 WBC 6.6 (3.8-10.6) k/uL RBC 4.39 (4.30-5.90) m/uL Hgb 13.6 (13.0-17.5) gm/dL Hct 42.9 (39.0-53.0) % MCV 97.8 (80.0-100.0) fL MCH 31.0 (25.0-35.0) pg MCHC 31.7 (31.0-37.0) g/dL RDW 13.5 (11.5-15.5) % Plt Count 207 (150-450) k/uL MPV 8.3 Neutrophils % (Manual) 56 % Band Neuts % (Manual) 10 % Lymphocytes % (Manual) 24 % Monocytes % (Manual) 5 % Eosinophils % (Manual) 4 % Basophils % (Manual) 1 % Neutrophils # (Manual) 4.30 (1.3-7.7) k/uL Lymphocytes # (Manual) 1.58 (1.0-4.8) k/uL Monocytes # (Manual) 0.33 (0-1.0) k/uL Eosinophils # (Manual) 0.26 (0-0.7) k/uL Basophils # (Manual) 0.07 (0-0.2) k/uL Nucleated RBCs 0 (0-0) /100 WBC Manual Slide Review Performed Poikilocytosis (manual Present Sodium 134 L (137-145) mmol/L Potassium 4.6 (3.5-5.1) mmol/L Chloride 99 (98-107) mmol/L Carbon Dioxide 22 (22-30) mmol/L Anion Gap 13 mmol/L BUN 27 H (9-20) mg/dL Creatinine 1.43 H (0.66-1.25) mg/dL Est GFR (CKD-EPI)AfAm 60 (>60 ml/min/1.73 sqM) Est GFR (CKD-EPI)NonAf 52 (>60 ml/min/1.73 sqM) Glucose 110 H (74-99) mg/dL Calcium 9.8 (8.4-10.2) mg/dL Total Bilirubin 0.8 (0.2-1.3) mg/dL AST 28 (17-59) U/L ALT 16 (4-49) U/L Alkaline Phosphatase 74 (38-126) U/L Total Protein 6.6 (6.3-8.2) g/dL Albumin 3.8 (3.5-5.0) g/dL Amylase 182 H (30-110) U/L Lipase 2226 H (23-300) U/L Disposition Clinical Impression: Pancreatitis Disposition: ADMITTED IP TO THIS [facility] Condition: Fair Instructions (If sedation given, give patient instructions): Pancreatitis (ED) Referrals: Camilo Juarez MD [Primary Care Provider] - 1-2 days Time of Disposition: 22:27
[2021-04-10 19:40] LABS: Potassium 4.6 mmol/L (3.5-5.1)
[2021-04-10 19:41] LABS: Albumin 3.8 g/dL (3.5-5.0); Calcium 9.8 mg/dL (8.4-10.2); Total Bilirubin 0.8 mg/dL (0.2-1.3); Total Protein 6.6 g/dL (6.3-8.2)
[2021-04-10 20:07] LABS: Band Neutrophils % 10 %; Basophils # (M) 0.07 k/uL (0-0.2); Eosinophils # (M) 0.26 k/uL (0-0.7); Lymphocytes # (M) 1.58 k/uL (1.0-4.8); Monocytes # (M) 0.33 k/uL (0-1.0); Neutrophils % (M) 56 %; Nucleated Red Blood Cells 0 /100 WBC (0-0); Poikilocytosis (M) Present; Total Cells Counted 100
--- NOTE | 2021-04-10 21:38 | CT ---
EXAMINATION TYPE: CT abdomen pelvis w con DATE OF EXAM: 04/10/2021 COMPARISON: CT 08/15/2018. Ultrasound 03/31/2021. HISTORY: Left lower quadrant abdominal pain. CT DLP: 1030 mGycm Automated exposure control for dose reduction was used. TECHNIQUE: Helical acquisition of images was performed from the lung bases through the pelvis. CONTRAST: Performed without Oral Contrast and with IV Contrast, patient injected with 80ml mL of Isovue 300. FINDINGS: LUNG BASES: 8 mm left lower lobe nodule. Otherwise no acute abnormality. LIVER/GB: No significant abnormality is appreciated. PANCREAS: No significant abnormality is seen. SPLEEN: No significant abnormality is seen. ADRENALS: Bilateral heterogeneous, hypoattenuating adrenal masses, measuring 6.3 x 5.3 cm on the left and 6.1 x 5.2 cm on the right. Associated surrounding fat stranding. KIDNEYS: No significant abnormality is seen. FREE AIR: No free air is visualized. RETROPERITONEAL ADENOPATHY: Otherwise no enlarged abdominal lymph nodes. REPRODUCTIVE ORGANS: No significant abnormality is seen URINARY BLADDER: No significant abnormality is seen. PELVIC ADENOPATHY: None visualized. OSSEOUS STRUCTURES: No significant abnormality is seen. BOWEL: Subtle mild fat stranding involving the proximal sigmoid colon diverticula. No bowel obstruct ion, free air or fluid. OTHER: None IMPRESSION: FINDINGS CONSISTENT WITH ACUTE SIGMOID COLONIC DIVERTICULOSIS WITHOUT COMPLICATION. INCIDENTAL LARGE BILATERAL ADRENAL MASSES. CONSIDERATIONS INCLUDE LYMPHOMA AND METASTATIC DISEASE. RE COMMEND APPROPRIATE WORKUP. ALSO 8 MM LEFT LOWER LOBE NODULE, CONCERNING FOR METASTATIC DISEASE.
[2021-04-10] MEDS ORDERED: NALOXONE 0.4 MG/ML 1 ML VIAL IV PRN (21:51)
[2021-04-10] MEDS ORDERED: MORPHINE SULFATE 4 MG/ML SYRINGE IVP PRN (22:07)
[2021-04-10] MEDS: SODIUM CHLORIDE 0.9% 1,000 ML IV SCH (22:20)
[2021-04-10 22:33] LABS: Appearance,Urine Clear (Clear); Bilirubin,Urine Negative (Negative); Blood,Urine Negative (Negative); Color,Urine Yellow; Glucose,Urine (UA) Negative (Negative); Ketones,Urine 1+ (Negative); Leukocyte Esterase,Urine Negative (Negative); Nitrite,Urine Negative (Negative); Protein,Urine Trace (Negative); Urobilinogen,Urine <2.0 mg/dL (<2.0)
[2021-04-11] MEDS: MELATONIN 3 MG TABLET PO PRN ×2 (01:02→21:00)
[2021-04-11] MEDS: HYDROmorphone 1 MG/ML 1 ML SYRINGE IVP PRN ×5 (02:08→21:00)
[2021-04-11] MEDS: SODIUM CHLORIDE 0.9% 1,000 ML IV SCH ×2 (05:13→13:39)
[2021-04-11] MEDS: PANTOPRAZOLE 40 MG/10 ML VIAL IVP SCH (09:53)
[2021-04-11 12:22] LABS: ALT 12 U/L (4-49); AST 23 U/L (17-59); African American GFR (CKD) 79 (>60 ml/min/1.73 sqM); Albumin 3.1 g/dL (3.5-5.0); Albumin/Globulin Ratio 1.2; Alkaline Phosphatase 58 U/L (38-126); Anion Gap 9 mmol/L; Blood Urea Nitrogen 23 mg/dL (9-20); Calcium 8.6 mg/dL (8.4-10.2); Carbon Dioxide 22 mmol/L (22-30); Chloride 104 mmol/L (98-107); Globulin 2.5 g/dL; Glucose 116 mg/dL (74-99); Non-African American GFR(CKD) 69 (>60 ml/min/1.73 sqM); Potassium 4.4 mmol/L (3.5-5.1); Sodium 135 mmol/L (137-145); Total Bilirubin 0.5 mg/dL (0.2-1.3); Total Protein 5.6 g/dL (6.3-8.2)
[2021-04-11 13:23] VITALS: BMI 26.4
[2021-04-11] MEDS: HYDROcodone/APAP 7.5-325MG 1 EACH TAB PO PRN ×2 (13:40→19:38)
--- NOTE | 2021-04-11 16:40 | P.HPIM ---
History of Present Illness patient in with complaints of abdominal pain sharp severe 10/10 severity in the left the upper quadrant. Patient is found to have elevated lipase. Patient had a computed tomography scan of the abdomen which showed other findings including mass lesions on bilateral adrenal glands and an 8 mm nodule in thelower lobe of the left lung.patient's abdominal pain is better patient is hungry.patient quit smoking more than 40 years ago. Patient doesn't have any significant medical history did admit to a 20 pound weight loss. Review of Systems REVIEW OF SYSTEMS: CONSTITUTIONAL: No fever, no malaise, no fatigue. HEENT: No recent visual problems or hearing problems. Denied any sore throat. CARDIOVASCULAR: No chest pain, orthopnea, PND, no palpitations, no syncope. PULMONARY: No shortness of breath, no cough, no hemoptysis. GASTROINTESTINAL: No diarrhea, no nausea, no vomiting, no abdominal pain. NEUROLOGICAL: No headaches, no weakness, no numbness. HEMATOLOGICAL: Denies any bleeding or petechiae. GENITOURINARY: Denies any burning micturition, frequency, or urgency. MUSCULOSKELETAL/RHEUMATOLOGICAL: Denies any joint pain, swelling, or any muscle pain. ENDOCRINE: Denies any polyuria or polydipsia. The rest of the 14-point review of systems is negative. Past Medical History Past Medical History: Thyroid Disorder Additional Past Medical History / Comment(s): neck pain. Divertic. History of Any Multi-Drug Resistant Organisms: Unobtainable Past Surgical History: Unable to Obtain Additional Past Surgical History / Comment(s): Cataracts. Sinus sx Past Anesthesia/Blood Transfusion Reactions: No Reported Reaction Smoking Status: Never smoker Past Alcohol Use History: Abuse, Daily, Heavy Additional Past Alcohol Use History / Comment(s): Last drink 3 weeks ago; drinks 1 bottle of wine per day Past Drug Use History: Unable to Obtain - Past Family History Father Family Medical History: Cancer Mother Family Medical History: Cancer Additional Family Medical History / Comment(s): Ovarian Cancer Medications and Allergies Home Medications Medication Instructions Recorded Confirmed Type Atorvastatin Calcium [Lipitor] 10 mg PO DAILY 04/10/21 04/10/21 History Levothyroxine Sodium [Synthroid] 200 mcg PO DAILY 04/10/21 04/10/21 History Zolpidem Tartrate [Ambien Cr] 12.5 mg PO HS 04/10/21 04/10/21 History Allergies Allergy/AdvReac Type Severity Reaction Status Date / Time No Known Allergies Allergy Verified 04/10/21 20:46 Physical Exam Vitals: Vital Signs Temp Pulse Pulse Resp BP BP Pulse Ox 04/11/21 11:29 98.1 F 70 14 104/57 97 04/11/21 06:10 106/64 04/11/21 05:00 97.6 F 87 20 126/68 96 04/11/21 02:03 101/61 04/10/21 23:59 99.0 F 74 18 98/62 96 04/10/21 22:00 84 20 107/80 97 04/10/21 21:56 81 20 95/54 95 04/10/21 21:00 80 18 89/52 96 04/10/21 20:00 85 20 108/70 97 04/10/21 19:07 98.3 F 77 18 96 04/10/21 17:42 98.5 F 95 18 106/75 99 Intake and Output 04/11/21 04/11/21 04/11/21 06:59 14:59 22:59 Intake Total 500 2320 Balance 500 2320 Intake: Intake, IV Titration 500 1200 Amount Sodium Chloride 0.9% 1, 500 1200 000 ml @ 100 mls/hr IV . Q10H [facility] Rx#:[id number] Oral 1120 Other: Voiding Method Toilet # Voids 2 4 Weight 86.183 kg 86.183 kg PHYSICAL EXAMINATION: GENERAL: The patient is alert and oriented x3, not in any acute distress. Well developed, well nourished. HEENT: Pupils are round and equally reacting to light. EOMI. No scleral icterus. No conjunctival pallor. Normocephalic, atraumatic. No pharyngeal erythema. No thyromegaly. CARDIOVASCULAR: S1 and S2 present. No murmurs, rubs, or gallops. PULMONARY: Chest is clear to auscultation, no wheezing or crackles. ABDOMEN: Soft,patient does have tenderness in the left upper quadrant, nondistended, normoactive bowel sounds. No palpable organomegaly. MUSCULOSKELETAL: No joint swelling or deformity. EXTREMITIES: No cyanosis, clubbing, or pedal edema. NEUROLOGICAL: Gross neurological examination did not reveal any focal deficits. SKIN: No rashes. Results CBC & Chem 7: 04/10/21 19:17 04/11/21 11:13 Labs: Abnormal Lab Results - Last 24 Hours (Table) 04/10/21 04/10/21 04/11/21 Range/Units 19:17 19:17 11:13 Sodium 134 L 135 L (137-145) mmol/L BUN 27 H 23 H (9-20) mg/dL Creatinine 1.43 H (0.66-1.25) mg/dL Glucose 110 H 116 H (74-99) mg/dL Total Protein 5.6 L (6.3-8.2) g/dL Albumin 3.1 L (3.5-5.0) g/dL Amylase 182 H (30-110) U/L Lipase 2226 H (23-300) U/L Ur Specific [place] 1.050 H (1.001-1.035) Urine Protein Trace H (Negative) Urine Ketones 1+ H (Negative) Thrombosis Risk Factor Assmnt - Choose All That Apply Any of the Below Risk Factors Present?: Yes Each Factor Represents 1 point: Obesity (BMI >25) Each Risk Factor Represents 2 Points: Age 61-74 years Thrombosis Risk Factor Assessment Total Risk Factor Score: 3 Thrombosis Risk Factor Assessment Level: Moderate Risk Assessment and Plan Plan: -acute Pancreatitis:etiology of pancreatitis is not clear patient will be continued on IV fluids as his symptoms improved a bit patient will be started on clear liquid diet patient will remain on clear liquid diet will repeat lipase tomorrow again gastroneurology will evaluate the patient -Acute renal failure: Secondary to prerenal azotemia intravascularly depletion patient will be continued on IV fluids creatinine improved from 1.43-1.13 -Hypovolemic hyponatremia improved with IV fluids -Significant weight loss and mass lesions and the adrenal glands and a nodule in the lung high possibly of malignancy oncology was consulted further management regarding the mass and biopsy as per oncology. -hypothyroidism: Levothyroxine will be continued.
[2021-04-12] MEDS: HYDROmorphone 1 MG/ML 1 ML SYRINGE IVP PRN ×4 (03:01→23:30)
[2021-04-12] MEDS: SODIUM CHLORIDE 0.9% 1,000 ML IV SCH ×2 (05:43→15:29)
[2021-04-12] MEDS: LEVOTHYROXINE 100 MCG TAB PO SCH (05:43)
[2021-04-12 06:39] LABS: HCT 31.3 % (39.0-53.0); HGB 10.8 gm/dL (13.0-17.5); MCH 33.2 pg (25.0-35.0); MCHC 34.6 g/dL (31.0-37.0); MCV 96.1 fL (80.0-100.0); Mean Platelet Volume 8.2; Platelet Count 169 k/uL (150-450); RBC 3.26 m/uL (4.30-5.90); RDW 13.1 % (11.5-15.5); WBC 4.8 k/uL (3.8-10.6)
--- NOTE | 2021-04-12 07:27 | P.PN ---
Subjective Progress Note Date: 04/12/21 Creatinine improved, will recheck this am and further evaluate with CT chest (contrasted preferred, hydrate before and after). for other areas to further biopsy. Objective - Vital Signs Vital signs: Vital Signs Temp 100.0 F H 04/12/21 05:00 Pulse 76 04/12/21 05:00 Resp 20 04/12/21 05:00 BP 99/67 04/12/21 05:00 Pulse Ox 99 04/12/21 05:00 Intake & Output 04/11/21 04/12/21 04/12/21 18:59 06:59 18:59 Intake Total 2320 2510 Balance 2320 2510 Weight 86.183 kg Intake: Intake, IV Titration 1200 1200 Amount Sodium Chloride 0.9% 1, 1200 1200 000 ml @ 100 mls/hr IV . Q10H [facility] Rx#:[id number] Oral 1120 1310 Other: Voiding Method Toilet Toilet # Voids 4 2 - Exam - Constitutional General appearance: cooperative, no acute distress - EENT Eyes: EOMI, PERRLA ENT: hard of hearing, NA/AT, normal oropharynx - Neck no supraclavicular, iliac, axillilary, or cervical lymphadenopathy on exam. Neck: normal ROM - Respiratory Respiratory: bilateral: diminished (L>R) - Cardiovascular Rhythm: regular Heart sounds: normal: S1, S2 - Gastrointestinal General gastrointestinal: distended, normal bowel sounds, soft, tenderness - Integumentary Integumentary: normal - Neurologic Neurologic: CNII-XII intact - Musculoskeletal Musculoskeletal: generalized weakness, strength equal bilaterally - Psychiatric Psychiatric: A&O x's 3, appropriate affect, intact judgment & insight - Labs CBC & Chem 7: 04/12/21 06:06 04/12/21 06:06 Labs: Abnormal Lab Results - Last 24 Hours (Table) 04/11/21 04/12/21 Range/Units 11:13 06:06 RBC 3.26 L (4.30-5.90) m/uL Hgb 10.8 L (13.0-17.5) gm/dL Hct 31.3 L (39.0-53.0) % Sodium 135 L (137-145) mmol/L BUN 23 H (9-20) mg/dL Glucose 116 H (74-99) mg/dL Total Protein 5.6 L (6.3-8.2) g/dL Albumin 3.1 L (3.5-5.0) g/dL Assessment and Plan Plan: Assessment and Recommendations: Bilateral Adrenal Masses: - Concern for Metastatic Malignant Process. - Discussed with primary team at possibility that this is benign process, and maybe attempting tissue diagnosis at site of LLL nodule would be more beneficial, however with the side of the non-specific lung nodule (<1cm) it was felt that adrenal mass would be the best source of sample within the current images. - Ct of the Chest from today with contrast shows multiple subcentimeter masses that appear consistent with a metastatic process - This is felt that the adrenal masses are more likely metastatic as well and would be the best targeted approach at this time, however a primary source is not identified clearly on imaging or clinical exam. - We have asked GI to further evaluate EGD Acute Renal Insufficiency: Improving Normocytic Anemia: - Workup ordered Weight Loss: Unintentional - 25lb in 3 weeks Rheumatoid Arthritis: - Recheck status ordered Pancreatitis: Improved - Non-contrasted imaging - Further imaging maybe beneficial, however can perform outpatient PET if biop sy reveals a positive malignant process Hx: Daily alcohol use Discussed with primary team
[2021-04-12] MEDS: PANTOPRAZOLE 40 MG/10 ML VIAL IVP SCH (08:04)
[2021-04-12 09:54] LABS: African American GFR (CKD) 91.8 (60.0-200.0); Albumin/Globulin Ratio 1.58 (1.60-3.17); Chol/HDL Ratio 8.67; Globulin 1.9 g/dL (1.6-3.3); LDL Cholesterol,Calculated 4.8 mg/dL (0.0-131.0); Non-African American GFR(CKD) 79.2 (60.0-200.0); Potassium 4.2 mmol/L (3.5-5.5); Total Bilirubin 0.4 mg/dL (0.2-1.2); Total Protein 4.9 g/dL (6.2-8.2); VLDL Calculation 41.2 mg/dL (5.00-40.00)
[2021-04-12] MEDS ORDERED: RX INFO: IV CONTRAST WAS GIVEN 1 EACH MISC MISCELLANE PRN (13:04)
[2021-04-12] MEDS ORDERED: polyethylene glycoL 3350 17 GM POWD.PACK PO PRN (13:37)
[2021-04-12] MEDS: HYDROcodone/APAP 7.5-325MG 1 EACH TAB PO PRN ×2 (13:48→19:58)
--- NOTE | 2021-04-12 16:27 | CT ---
EXAMINATION TYPE: CT chest w con DATE OF EXAM: 04/12/2021 COMPARISON: CT abdomen 04/10/2021. HISTORY: Recently diagnosed w/adrenal ca. Assess for malignancy. CT DLP: 491 mGycm Automated exposure control for dose reduction was used. TECHNIQUE: CT scan of the chest is performed with IV Contrast, patient injected with 100 mL of Isovue 300. MIP Images are created on CT scanner and reviewed. 3D reconstructed images are created on an independent workstation and reviewed. FINDINGS: LUNGS: There are bilateral multiple pulmonary nodules approximately 3-4 in the right lower lobe to in clude a subpleural lesion measuring 1 cm. Otherwise 1-2 nodules in the remainder of the bilateral lob es with index lesion in the left lower lobe measuring 8 mm. The lungs are otherwise clear. There is no pleural effusion or pneumothorax seen. The tracheobronchial tree is patent. MEDIASTINUM: There are no greater than 1 cm hilar or mediastinal lymph nodes. No pericardial effusi on is seen. OTHER: Redemonstrated bilateral large adrenal masses. IMPRESSION: Multiple bilateral pulmonary nodules measuring up to 1 cm and concerning for metastatic disease in li ght of adrenal masses. Otherwise no acute cardiopulmonary abnormality.
--- NOTE | 2021-04-12 17:04 | P.CONS ---
History of Present Illness - Reason for Consult Consult date: 04/11/21 Bilateral Adrenal Masses Requesting physician: Selin Coy - Chief Complaint Pancreatitis - History of Present Illness Mr. Whitmore is a very pleasant 65 year old male patient who has been admitted to hospital after presenting with persistent and worsening abdominal pain over the past few weeks. His is at bedside. On presentation complaints of LLQ abdominal pain. He apparently started having back pain a few weeks ago, and though it was due to heavy lifting and twisting he was doing during work. He spent quite a bit of time in bed during the past few weeks, related to the "injury". Although when the pain and discomfort changed from one localized area and started to move to bilateral lower back, and then progressed to abdomen, he became more concerned. His history of diverticulitis had him assuming he was in an active flair, therefore he did monitor his diet and stop his alcohol intake the past few weeks, however the weight loss he is claiming, 25lb in three week, appears significant, even with diet changes. He has a known history of daily alcohol (4-6 glasses of wine daily per patient and ). He admits to drenching night sweats, more frequently the past few nights. He has a known history of Rheumatoid Arthritis in which he was previously treated with Methotrexate and then Jardiance. He states he has not been on any medication the past 3 years as he feels it has been in a "remission". He follows Dr. Mjoica for this. He states he is up to date on all of his preventative care, last colonoscopy 4 years ago. He follows closely with primary care Dr. Juarez. 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 Denies current tobacco use. On initial work-up he was found to have Lipase 2200, Amylase of 120. Renal insufficiency with creatinine 1.43, trending down today. Due to the increased renal function non-contrasted CT abdomen and pelvis was performed and revealed: Bilateral heterogenous, hypodense adrenal masses (approx 6.3x5. - Left, 6.2x5.1- Right). there was also an 8mm left lower lung base nodule identified. No adenopathy, no abnormality seen in pancreas, liver, or otherwise (however non- contrasted study). Because of the above findings we have been asked to further evaluate Review of Systems All systems: negative Constitutional: Reports as per HPI Past Medical History Past Medical History: Thyroid Disorder Additional Past Medical History / Comment(s): neck pain. Divertic. History of Any Multi-Drug Resistant Organisms: Unobtainable Past Surgical History: Unable to Obtain Additional Past Surgical History / Comment(s): Cataracts. Sinus sx Past Anesthesia/Blood Transfusion Reactions: No Reported Reaction Smoking Status: Never smoker Past Alcohol Use History: Abuse, Daily, Heavy Additional Past Alcohol Use History / Comment(s): Last drink 3 weeks ago; drinks 1 bottle of wine per day Past Drug Use History: Unable to Obtain - Past Family History Father Family Medical History: Cancer Mother Family Medical History: Cancer Additional Family Medical History / Comment(s): Ovarian Cancer Medications and Allergies Home Medications Medication Instructions Recorded Confirmed Type Atorvastatin Calcium [Lipitor] 10 mg PO DAILY 04/10/21 04/10/21 History Levothyroxine Sodium [Synthroid] 200 mcg PO DAILY 04/10/21 04/10/21 History Zolpidem Tartrate [Ambien Cr] 12.5 mg PO HS 04/10/21 04/10/21 History Allergies Allergy/AdvReac Type Severity Reaction Status Date / Time No Known Allergies Allergy Verified 04/10/21 20:46 Physical Exam Vitals: Vital Signs Temp Pulse Pulse Resp BP BP Pulse Ox 04/11/21 06:10 106/64 04/11/21 05:00 97.6 F 87 20 126/68 96 04/11/21 02:03 101/61 04/10/21 23:59 99.0 F 74 18 98/62 96 04/10/21 22:00 84 20 107/80 97 04/10/21 21:56 81 20 95/54 95 04/10/21 21:00 80 18 89/52 96 04/10/21 20:00 85 20 108/70 97 04/10/21 19:07 98.3 F 77 18 96 04/10/21 17:42 98.5 F 95 18 106/75 99 Intake and Output 04/10/21 04/11/21 04/11/21 22:59 06:59 14:59 Intake Total 500 Balance 500 Intake: Intake, IV Titration 500 Amount Sodium Chloride 0.9% 1, 500 000 ml @ 100 mls/hr IV . Q10H [facility] Rx#:[id number] Other: Voiding Method Toilet # Voids 2 Weight 86.183 kg 86.183 kg - Constitutional General appearance: cooperative, no acute distress - EENT Eyes: EOMI, PERRLA ENT: hard of hearing, NA/AT, normal oropharynx - Neck no supraclavicular, iliac, axillilary, or cervical lymphadenopathy on exam. Neck: normal ROM - Respiratory Respiratory: bilateral: diminished (L>R) - Cardiovascular Rhythm: regular Heart sounds: normal: S1, S2 - Gastrointestinal General gastrointestinal: distended, normal bowel sounds, soft, tenderness - Integumentary Integumentary: normal - Neurologic Neurologic: CNII-XII intact - Musculoskeletal Musculoskeletal: generalized weakness, strength equal bilaterally - Psychiatric Psychiatric: A&O x's 3, appropriate affect, intact judgment & insight Results CBC & Chem 7: 04/12/21 06:06 04/12/21 06:06 Labs: Abnormal Lab Results - Last 24 Hours (Table) 04/10/21 04/10/21 Range/Units 19:17 19:17 Sodium 134 L (137-145) mmol/L BUN 27 H (9-20) mg/dL Creatinine 1.43 H (0.66-1.25) mg/dL Glucose 110 H (74-99) mg/dL Amylase 182 H (30-110) U/L Lipase 2226 H (23-300) U/L Ur Specific [place] 1.050 H (1.001-1.035) Urine Protein Trace H (Negative) Urine Ketones 1+ H (Negative) CT scan - abdomen: report reviewed CT scan - pelvis: report reviewed Assessment and Plan (1) Pancreatitis Current Visit: Yes Status: Acute Code(s): K85.90 - ACUTE PANCREATITIS WITHOUT NECROSIS OR INFECTION, UNSP SNOMED Code(s): 86682100 Plan: Assessment and Recommendations: Bilateral Adrenal Masses: - Concern for Metastatic Malignant Process. - Discussed with primary team at possibility that this is benign process, and maybe attempting tissue diagnosis at site of LLL nodule would be more beneficial, however with the side of the non-specific lung nodule (<1cm) it was felt that adrenal mass would be the best source of sample within the current images. - Will order CT chest once renal function improves to evaluate further lungs and other potential sites for diagnostic biopsy Acute Renal Insufficiency: Improving Weight Loss: Unintentional - 25lb in 3 weeks Pancreatitis: - Non-contrasted imaging - Further imaging maybe beneficial, however can perform outpatient PET if biopsy reveals a positive malignant process Hx: Daily alcohol use Thank you for allowing us to participate in the care of this patient we anup follow along with you
--- NOTE | 2021-04-12 17:05 | P.PN ---
Subjective patient came in with complaints of abdominal pain sharp severe 10/10 severity in the left the upper quadrant. Patient is found to have elevated lipase. Patient had a computed tomography scan of the abdomen which showed other findings including mass lesions on bilateral adrenal glands and an 8 mm nodule in thelower lobe of the left lung.patient's abdominal pain is better patient is hungry.patient quit smoking more than 40 years ago. Patient doesn't have any significant medical history did admit to a 20 pound weight loss. 04/12/2021 Patient had a low-grade fever yesterday patient pain is better patient lipase has come down, we'll advance her diet. Patient creatinine improved patient will undergo computed tomography scan of the chest. Biopsy of the adrenal mass are nodule in the chest most probably tomorrow. Did discuss his overall clinical condition with his . Constitutional: Denied any fatigue denied any fever. Cardio vascular: denied any chest pain, palpitations Gastrointestinal still has abdominal pain with nausea Pulmonary: Denied any shortness of breath cough Neurologic denied any new focal deficits All inpatient medications were reviewed and appropriate changes in these medications as dictated in the interval history and assessment and plan. Objective - Vital Signs Vital signs: Vital Signs Temp 99.1 F 04/12/21 12:16 Pulse 78 04/12/21 12:16 Resp 17 04/12/21 12:16 BP 96/56 04/12/21 12:16 Pulse Ox 97 04/12/21 12:16 Intake & Output 04/11/21 04/12/21 04/12/21 18:59 06:59 18:59 Intake Total 2320 2510 Balance 2320 2510 Weight 86.183 kg Intake: Intake, IV Titration 1200 1200 Amount Sodium Chloride 0.9% 1, 1200 1200 000 ml @ 100 mls/hr IV . Q10H [facility] Rx#:[id number] Oral 1120 1310 Other: Voiding Method Toilet Toilet Toilet # Voids 4 2 - Exam PHYSICAL EXAMINATION: GENERAL: The patient is alert and oriented x3, not in any acute distress. Well developed, well nourished. HEENT: Pupils are round and equally reacting to light. EOMI. No scleral icterus. No conjunctival pallor. Normocephalic, atraumatic. No pharyngeal erythema. No thyromegaly. CARDIOVASCULAR: S1 and S2 present. No murmurs, rubs, or gallops. PULMONARY: Chest is clear to auscultation, no wheezing or crackles. ABDOMEN: Soft, still has some tenderness in the left upper quadrant, nondistended, normoactive bowel sounds. No palpable organomegaly. MUSCULOSKELETAL: No joint swelling or deformity. EXTREMITIES: No cyanosis, clubbing, or pedal edema. NEUROLOGICAL: Gross neurological examination did not reveal any focal deficits. SKIN: No rashes. - Labs CBC & Chem 7: 04/12/21 06:06 04/12/21 06:06 Labs: Abnormal Lab Results - Last 24 Hours (Table) 04/12/21 04/12/21 Range/Units 06:06 06:06 RBC 3.26 L (4.30-5.90) m/uL Hgb 10.8 L (13.0-17.5) gm/dL Hct 31.3 L (39.0-53.0) % Calcium 8.0 L (8.7-10.3) mg/dL Total Protein 4.9 L (6.2-8.2) g/dL Albumin 3.00 L (3.80-4.90) g/dL Albumin/Globulin Ratio 1.58 L (1.60-3.17) g/dL Triglycerides 206.0 H (0.0-149.0) mg/dL VLDL Cholesterol, Calc 41.20 H (5.00-40.00) mg/dL HDL Cholesterol 6.0 L (40.0-60.0) mg/dL Lipase 125 H (14-60) U/L Assessment and Plan Plan: -acute Pancreatitis:etiology of pancreatitis ruled out patient's diet will be advanced to full liquid -Acute renal failure: Secondary to prerenal azotemia improved with IV fluid present creatinine is around 1 -Hypovolemic hyponatremia improved with IV fluids -Significant weight loss and mass lesions and the adrenal glands and a nodule in the lung high possibly of malignancy oncology evaluated the patient today chest CT today possible biopsy of one of the lesions. -hypothyroidism: Levothyroxine will be continued.
[2021-04-12 22:41] LABS: Protein, Total 5.3 g/dL (6.2-8.2)
[2021-04-12 22:48] LABS: % Iron Saturation 5.73 (15.00-50.00); Uric Acid 6.5 mg/dL (3.7-8.7)
[2021-04-12 22:52] LABS: Carcinoembryonic Antigen <0.5 ng/mL (0.0-4.9)
[2021-04-12 22:54] LABS: Ferritin 1548.7 ng/mL (22.0-322.0)
[2021-04-12 23:18] LABS: Cancer Antigen 19-9 19.1 U/mL (0.0-34.9)
[2021-04-13] MEDS: SODIUM CHLORIDE 0.9% 1,000 ML IV SCH ×3 (02:03→20:11)
[2021-04-13] MEDS: LORazepam 2 MG/ML INJ IV PRN ×2 (02:11→21:54)
[2021-04-13] MEDS: HYDROcodone/APAP 7.5-325MG 1 EACH TAB PO PRN ×2 (03:23→09:35)
[2021-04-13] MEDS: HYDROmorphone 1 MG/ML 1 ML SYRINGE IVP PRN (05:37)
[2021-04-13] MEDS: LEVOTHYROXINE 100 MCG TAB PO SCH (05:38)
[2021-04-13 09:25] LABS: African American GFR (CKD) 91.8 (60.0-200.0); Anion Gap 8.3 mmol/L (4.00-12.00); Calcium 8.2 mg/dL (8.7-10.3); Carbon Dioxide 22.7 mmol/L (21.6-31.8); Non-African American GFR(CKD) 79.2 (60.0-200.0); Potassium 4.1 mmol/L (3.5-5.5)
[2021-04-13 09:29] LABS: INR 1.2 (<1.2); Prothrombin Time 12.6 sec (9.0-12.0)
[2021-04-13] MEDS: PANTOPRAZOLE 40 MG TABLET PO SCH (09:36)
--- NOTE | 2021-04-13 10:51 | P.PCN ---
Date of Procedure: 04/13/21 Preoperative Diagnosis: metastatic disease Procedure(s) Performed: ct guide left adrenal biopsy Anesthesia: local Estimated Blood Loss (ml): 50 Pathology: other (2 x 18 ga to cyto tech) Condition: stable Disposition: no change
[2021-04-13 12:02] LABS: Immunoglobulin M 21.7 mg/dL (40.0-280.0)
--- NOTE | 2021-04-13 12:57 | CT ---
EXAMINATION TYPE: CT biopsy adrenal gland DATE OF EXAM: 04/13/2021 HISTORY: Adrenal mass COMPARISON: CT 04/10/2021, CT 04/12/2021 Maximal barrier technique was utilized, hand hygiene obtained with soap and water. The skin overlyin g a suitable path to the lesion was localized using CT and the overlying skin was prepped and draped. Lidocaine used for local anesthesia. A skin lee ann made with a scalpel. Using CT guidance, access w as gained to the lesion with a 18-gauge core needle through a 17-gauge guide. Core specimen submitte d to cytology. 2 pass(es) performed in all. Following the procedure no immediate complications. T he patient is discharged in stable condition. Hemostasis achieved. Some hemorrhage noted posterior to the adrenal gland during the course of the exam. bilateral renal masses, pancreatic mass also noted on review of prior CT IMPRESSION: SUCCESSFUL CT GUIDED CORE BIOPSY of left adrenal gland. PATHOLOGY PENDING. THIS PROCEDURE WAS PERFO RMED BY THE UNDERSIGNED.
--- NOTE | 2021-04-13 13:05 | P.PN ---
Subjective Progress Note Date: 04/13/21 patient came in with complaints of abdominal pain sharp severe 10/10 severity in the left the upper quadrant. Patient is found to have elevated lipase. Patient had a computed tomography scan of the abdomen which showed other findings including mass lesions on bilateral adrenal glands and an 8 mm nodule in the lower lobe of the left lung. patient's abdominal pain is better patient is hungry. patient quit smoking more than 40 years ago. Patient doesn't have any significant medical history did admit to a 20 pound weight loss. 04/12/2021 Patient had a low-grade fever yesterday patient pain is better patient lipase has come down, we'll advance diet. Patient creatinine improved patient will undergo computed tomography scan of the chest. Biopsy of the adrenal mass are nodule in the chest most probably tomorrow. Did discuss his overall clinical condition with his . 04/13/2021 Patient is seen and evaluated and follow-up with no acute overnight issues and patient has remained afebrile. Patient is scheduled to have a left side adrenal biopsy with interventional radiology. BMP within normal limits today. Lipase slightly elevated at 168 and denies any abdominal discomfort. Oncology also following. Consult for GI was placed and currently pending. Patient currently maintained on full liquids and will continue to monitor. Constitutional: Denied any fatigue denied any fever. Cardio vascular: denied any chest pain, palpitations Gastrointestinal still has abdominal pain with nausea Pulmonary: Denied any shortness of breath cough Neurologic denied any new focal deficits All inpatient medications were reviewed and appropriate changes in these medications as dictated in the interval history and assessment and plan. Objective - Vital Signs Vital signs: Vital Signs Temp 98.8 F 04/13/21 05:00 Pulse 76 04/13/21 05:00 Resp 16 04/13/21 05:00 BP 107/63 04/13/21 05:00 Pulse Ox 97 04/13/21 05:00 Intake & Output 04/12/21 04/13/21 04/13/21 18:59 06:59 18:59 Intake Total 1200 1100 Balance 1200 1100 Intake: Intake, IV Titration 1200 1100 Amount Sodium Chloride 0.9% 1, 1200 1100 000 ml @ 100 mls/hr IV . Q10H HECTOR Rx#:[id number] Other: Voiding Method Toilet Toilet # Voids 1 - Exam GENERAL: The patient is alert and oriented x3, not in any acute distress. Well developed, well nourished. HEENT: Pupils are round and equally reacting to light. EOMI. No scleral icterus. No conjunctival pallor. Normocephalic, atraumatic. No pharyngeal erythema. No thyromegaly. CARDIOVASCULAR: S1 and S2 present. No murmurs, rubs, or gallops. PULMONARY: Chest is clear to auscultation, no wheezing or crackles. ABDOMEN: Soft, still has some mild tenderness in the left upper quadrant on palpation, nondistended, normoactive bowel sounds. No palpable organomegaly. MUSCULOSKELETAL: No joint swelling or deformity. EXTREMITIES: No cyanosis, clubbing, or pedal edema. NEUROLOGICAL: Gross neurological examination did not reveal any focal deficits. SKIN: No rashes. - Labs CBC & Chem 7: 04/12/21 06:06 04/13/21 05:28 Labs: Abnormal Lab Results - Last 24 Hours (Table) 04/12/21 04/12/21 04/12/21 Range/Units 06:06 16:51 16:51 ESR 63 H (0-20) mm/Hr PT (9.0-12.0) sec INR (<1.2) Calcium 8.0 L (8.7-10.3) mg/dL Iron 13 L (65-175) ug/dL TIBC 227 L (228-460) ug/dL % Saturation 5.73 L (15.00-50.00) Ferritin 1548.7 H (22.0-322.0) ng/mL Total Protein 4.9 L (6.2-8.2) g/dL Total Protein (PEP) (6.2-8.2) g/dL Albumin 3.00 L (3.80-4.90) g/dL Albumin/Globulin Ratio 1.58 L (1.60-3.17) g/dL Triglycerides 206.0 H (0.0-149.0) mg/dL VLDL Cholesterol, Calc 41.20 H (5.00-40.00) mg/dL HDL Cholesterol 6.0 L (40.0-60.0) mg/dL Lipase 125 H (14-60) U/L 04/12/21 04/12/21 04/13/21 Range/Units 16:51 16:51 05:28 ESR (0-20) mm/Hr PT (9.0-12.0) sec INR (<1.2) Calcium 8.2 L (8.7-10.3) mg/dL Iron 12 L (65-175) ug/dL TIBC (228-460) ug/dL % Saturation (15.00-50.00) Ferritin (22.0-322.0) ng/mL Total Protein (6.2-8.2) g/dL Total Protein (PEP) 5.3 L (6.2-8.2) g/dL Albumin (3.80-4.90) g/dL Albumin/Globulin Ratio (1.60-3.17) g/dL Triglycerides (0.0-149.0) mg/dL VLDL Cholesterol, Calc (5.00-40.00) mg/dL HDL Cholesterol (40.0-60.0) mg/dL Lipase 168 H (14-60) U/L 04/13/21 Range/Units 08:22 ESR (0-20) mm/Hr PT 12.6 H (9.0-12.0) sec INR 1.2 H (<1.2) Calcium (8.7-10.3) mg/dL Iron (65-175) ug/dL TIBC (228-460) ug/dL % Saturation (15.00-50.00) Ferritin (22.0-322.0) ng/mL Total Protein (6.2-8.2) g/dL Total Protein (PEP) (6.2-8.2) g/dL Albumin (3.80-4.90) g/dL Albumin/Globulin Ratio (1.60-3.17) g/dL Triglycerides (0.0-149.0) mg/dL VLDL Cholesterol, Calc (5.00-40.00) mg/dL HDL Cholesterol (40.0-60.0) mg/dL Lipase (14-60) U/L Assessment and Plan Assessment: -acute Pancreatitis:etiology of pancreatitis ruled out, tolerating full liquids and will continue to advance slowly as tolerated GI consulted and pending. -Acute renal failure: Secondary to prerenal azotemia improved with IV fluid present creatinine is around 1 -Hypovolemic hyponatremia improved with IV fluids -Significant weight loss and mass lesions in the adrenal glands and a nodule in the lung high possibly of malignancy. Oncology following and patient is undergoing adrenal biopsy with IR today -hypothyroidism: Levothyroxine will be continued. Plan: Patient to continue with IV fluids and full liquid diet and advance slowly as tolerated. GI has been consulted although pending at this time. Oncology following and patient is currently undergoing adrenal gland biopsy. Will continue gentle IV hydration and discuss with oncology about treatment plan moving forward. Possible discharge in 24 hours.
--- NOTE | 2021-04-13 13:54 | P.PN ---
Subjective Progress Note Date: 04/13/21 Principal diagnosis: Adrenal Masses, Lung masses ADREnal biopsy today, With history of RA subcentimeter pulm nodules could relate to autoimmune and are determined non specific at the moment. Objective - Vital Signs Vital signs: Vital Signs Temp 98.0 F 04/13/21 11:00 Pulse 74 04/13/21 11:00 Resp 18 04/13/21 11:00 BP 100/52 04/13/21 11:00 Pulse Ox 98 04/13/21 11:00 Intake & Output 04/12/21 04/13/21 04/13/21 18:59 06:59 18:59 Intake Total 1200 1100 Balance 1200 1100 Intake: Intake, IV Titration 1200 1100 Amount Sodium Chloride 0.9% 1, 1200 1100 000 ml @ 100 mls/hr IV . Q10H [facility]ECTOR Rx#:[id number] Other: Voiding Method Toilet Toilet # Voids 1 - Exam - Constitutional General appearance: cooperative, no acute distress - EENT Eyes: EOMI, PERRLA ENT: hard of hearing, NA/AT, normal oropharynx - Neck no supraclavicular, iliac, axillilary, or cervical lymphadenopathy on exam. Neck: normal ROM - Respiratory Respiratory: bilateral: diminished (L>R) - Cardiovascular Rhythm: regular Heart sounds: normal: S1, S2 - Gastrointestinal General gastrointestinal: distended, normal bowel sounds, soft, tenderness - Integumentary Integumentary: normal - Neurologic Neurologic: CNII-XII intact - Musculoskeletal Musculoskeletal: generalized weakness, strength equal bilaterally - Psychiatric Psychiatric: A&O x's 3, appropriate affect, intact judgment & insight - Labs CBC & Chem 7: 04/12/21 06:06 04/13/21 05:28 Labs: Abnormal Lab Results - Last 24 Hours (Table) 04/12/21 04/12/21 04/12/21 Range/Units 16:51 16:51 16:51 ESR 63 H (0-20) mm/Hr PT (9.0-12.0) sec INR (<1.2) Calcium (8.7-10.3) mg/dL Iron 13 L (65-175) ug/dL TIBC 227 L (228-460) ug/dL % Saturation 5.73 L (15.00-50.00) Ferritin 1548.7 H (22.0-322.0) ng/mL Total Protein (PEP) 5.3 L (6.2-8.2) g/dL Lipase (14-60) U/L IgG (700.0-1600.0) mg/dL IgM (40.0-280.0) mg/dL Free [place] LC, Quant 2.50 H (0.33-1.94) mg/dL 04/12/21 04/12/21 04/13/21 Range/Units 16:51 16:51 05:28 ESR (0-20) mm/Hr PT (9.0-12.0) sec INR (<1.2) Calcium 8.2 L (8.7-10.3) mg/dL Iron 12 L (65-175) ug/dL TIBC (228-460) ug/dL % Saturation (15.00-50.00) Ferritin (22.0-322.0) ng/mL Total Protein (PEP) (6.2-8.2) g/dL Lipase 168 H (14-60) U/L IgG 690.0 L (700.0-1600.0) mg/dL IgM 21.7 L (40.0-280.0) mg/dL Free [place] LC, Quant (0.33-1.94) mg/dL 04/13/21 Range/Units 08:22 ESR (0-20) mm/Hr PT 12.6 H (9.0-12.0) sec INR 1.2 H (<1.2) Calcium (8.7-10.3) mg/dL Iron (65-175) ug/dL TIBC (228-460) ug/dL % Saturation (15.00-50.00) Ferritin (22.0-322.0) ng/mL Total Protein (PEP) (6.2-8.2) g/dL Lipase (14-60) U/L IgG (700.0-1600.0) mg/dL IgM (40.0-280.0) mg/dL Free [place] LC, Quant (0.33-1.94) mg/dL Assessment and Plan Plan: Assessment and Recommendations: Bilateral Adrenal Masses: - Concern for Metastatic Malignant Process. - Discussed with primary team at possibility that this is benign process, and maybe attempting tissue diagnosis at site of LLL nodule would be more beneficial, however with the side of the non-specific lung nodule (<1cm) it was felt that adrenal mass would be the best source of sample within the current images. - Ct of the Chest from today with contrast shows multiple subcentimeter masses that appear consistent with a metastatic process - This is felt that the adrenal masses are more likely metastatic as well and would be the best targeted approach at this time, however a primary source is not identified clearly on imaging or clinical exam. - We have asked GI to further evaluate EGD Acute Renal Insufficiency: Improving Normocytic Anemia: - Workup ordered Weight Loss: Unintentional - 25lb in 3 weeks Rheumatoid Arthritis: - Recheck status ordered Pancreatitis: Improved - Non-contrasted imaging - Further imaging maybe beneficial, however can perform outpatient PET if biopsy reveals a positive malignant process Hx: Daily alcohol use Discussed with primary team Adrenal Biopsy today Non-SPecific Pulm Nodules Physician attest: I have completed the full history and physical and agree with above dictation, dictated as a scribe
--- NOTE | 2021-04-13 16:26 | CONS ---
CONSULTATION DATE OF DICTATION: 04/13/2021 REASON FOR CONSULTATION: GI evaluation for possible metastatic disease. HISTORY OF PRESENT ILLNESS: The patient is a 65-year-old pleasant white male who was admitted to the hospital; presented with left lower quadrant abdominal pain for the last 3-4 weeks' duration. He also started noticing some frequent bowel movements and at the same time decreased appetite, epigastric discomfort, nausea and weight loss of almost 25 pounds since the onset of these symptoms. He used to drink a bottle of wine every day, but about a month ago because he was not feeling well, he quit drinking completely. He has a history of rheumatoid arthritis and follows with Dr. Mojica. When he came to the emergency room he did have a CT of the abdomen and pelvis done that showed bilateral adrenal masses suspicious for lymphoma and also acute sigmoid colonic diverticulosis with no evidence of diverticulitis. There was a small 8 mm nodule noted in the left lobe of the liver, and subsequently a CT of the chest was performed yesterday which once again revealed multiple bilateral pulmonary nodules measuring up to 1 cm in size concerning for metastatic disease. We are consulted for possible EGD to rule out gastric primary. PAST MEDICAL HISTORY: Significant for hypertension, hyperlipidemia, anxiety, hypothyroidism. PAST SURGICAL HISTORY: CT-guided adrenal gland biopsy this morning. Colonoscopy by Dr. Saha 3 years ago. SOCIAL HISTORY: No smoking. Alcohol use as mentioned above. MEDICATIONS: Medications at home include Lipitor, Synthroid, Ambien. DRUG ALLERGIES: NO KNOWN DRUG ALLERGIES. REVIEW OF SYSTEMS: CARDIOPULMONARY: No chest pain or shortness of breath. GENITOURINARY: No dysuria or hematuria. MUSCULOSKELETAL: Unremarkable. SKIN: Unremarkable. ENDOCRINE: Unremarkable. PSYCHIATRIC: Mild anxiety. ENT/VISION: Unremarkable. CONSTITUTIONAL: Weight loss of 25 pounds. GI: As mentioned above. HEMATOLOGY: Unremarkable. FAMILY HISTORY: Unremarkable. PHYSICAL EXAMINATION: He appears comfortable. VITAL SIGNS: Stable. Blood pressure is 100/60, pulse rate 82 per minute and afebrile. HEENT examination unremarkable. Conjunctivae pink. Sclerae anicteric. Oral cavity no lesions. NECK: No JVD or lymph node enlargement. CHEST: Clear to auscultation. HEART: Regular rate and rhythm. ABDOMEN: Soft. Bowel sounds are positive. No organomegaly. There was mild tenderness in the epigastric area as well as in the left lower quadrant area. EXTREMITIES: No pedal edema. NEUROLOGIC: Alert and oriented x3. No focal deficits. LABS: Labs done at the time of admission to the hospital: WBC 4.8, hemoglobin 10.8, platelets normal. Sedimentation rate is 63, PTT and INR within normal limits. Iron 12, TIBC 225, iron saturation 5.3. Ferritin is 1548. Lipase was slightly elevated at 2226 and amylase was elevated at 182. They have normalized today. CA99 is normal. CEA is negative. TSH is normal. IMPRESSION: This is a patient who presented to the hospital with abdominal discomfort, mostly in the epigastric area and left lower quadrant area with some nausea, altered bowel movements and progressive weight loss of almost 25 pounds in the last 3-[address] of the abdomen as well as CT of the chest did show multiple pulmonary nodules as well as bilateral large adrenal masses. He was seen by Oncology and is being worked up for possible metastatic disease. We are consulted for possible upper endoscopy to rule out any primary GI source. His last colonoscopy by Dr. Saha was about 3 years ago. He is status post adrenal gland biopsy yesterday. RECOMMENDATIONS: 1. Await pathology results. 2. Will proceed with an upper endoscopy tomorrow. Discussed with the patient risks, benefits and complications, and he is agreeable to it. Thank you for this consultation. MMODL / IJN: [id number] /
[2021-04-13 20:38] VITALS: RESP 16
[2021-04-14] MEDS: SODIUM CHLORIDE 0.9% 1,000 ML IV SCH ×2 (04:44→13:19)
[2021-04-14] MEDS: LEVOTHYROXINE 100 MCG TAB PO SCH (06:01)
[2021-04-14 06:32] LABS: ALT 11 U/L (4-49); AST 27 U/L (17-59); African American GFR (CKD) >90 (>60 ml/min/1.73 sqM); Albumin 2.5 g/dL (3.5-5.0); Albumin/Globulin Ratio 1.1; Alkaline Phosphatase 56 U/L (38-126); Anion Gap 7 mmol/L; Blood Urea Nitrogen 11 mg/dL (9-20); Calcium 8.2 mg/dL (8.4-10.2); Carbon Dioxide 22 mmol/L (22-30); Chloride 107 mmol/L (98-107); Globulin 2.3 g/dL; Glucose 94 mg/dL (74-99); Non-African American GFR(CKD) 79 (>60 ml/min/1.73 sqM); Potassium 4.2 mmol/L (3.5-5.1); Sodium 136 mmol/L (137-145); Total Bilirubin 0.4 mg/dL (0.2-1.3); Total Protein 4.8 g/dL (6.3-8.2)
[2021-04-14 06:34] LABS: Basophils % (A) 0 %; Eosinophils # (A) 0.1 k/uL (0-0.7); Eosinophils % (A) 3 %; HCT 30.4 % (39.0-53.0); Lymphocytes # (A) 0.7 k/uL (1.0-4.8); Lymphocytes % (A) 16 %; MCH 31.7 pg (25.0-35.0); MCHC 32.8 g/dL (31.0-37.0); MCV 96.6 fL (80.0-100.0); Mean Platelet Volume 8.2; Monocytes # (A) 0.5 k/uL (0-1.0); Monocytes % (A) 13 %; Neutrophils # (A) 2.2 k/uL (1.3-7.7); Neutrophils % (A) 55 %; Platelet Count 151 k/uL (150-450); RBC 3.15 m/uL (4.30-5.90); RDW 13.9 % (11.5-15.5); WBC 4.1 k/uL (3.8-10.6)
[2021-04-14 08:02] LABS: Eosinophils # (M) 0.16 k/uL (0-0.7); Lymphocytes # (M) 0.45 k/uL (1.0-4.8); Monocytes # (M) 0.78 k/uL (0-1.0); Neutrophils # (M) 2.71 k/uL (1.3-7.7); Neutrophils % (M) 66 %; Nucleated Red Blood Cells 0 /100 WBC (0-0); Total Cells Counted 100
[2021-04-14] MEDS: PANTOPRAZOLE 40 MG TABLET PO SCH (08:12)
[2021-04-14] MEDS ORDERED: IV FLUID CONTINUATION 1,000 ML IV ONE (12:40)
--- NOTE | 2021-04-14 13:07 | P.PCN ---
Date of Procedure: 04/14/21 Description of Procedure: BRIEF HISTORY: Patient is a 65-year-old male admitted to the hospital for left lower quadrant abdominal pain. The patient had reported symptoms of abdominal pain of 34 weeks in duration and associated weight loss. Computed tomography scan of the abdomen and pelvis performed in evaluation showed bilateral adrenal masses suspicious for lymphoma and also acute sigmoid colonic diverticulosis with no evidence of diverticulitis. GI was consult is for endoscopy to rule out upper GI tract malignancy. Patient also has some anemia and there is concern of possible GI bleed. PROCEDURE PERFORMED: Esophagogastroduodenoscopy with biopsy. PREOPERATIVE DIAGNOSIS: Abnormal computed tomography scan abdomen, GI bleed. ESTIMATED BLOOD LOSS: Minimal. IV sedation per anesthesia. PROCEDURE: After informed consent was obtained, the patient was brought into the endoscopy unit. IV sedation was administered by Anesthesia under continuous monitoring. Initially the Olympus GIF-190 video endoscope was inserted into the mouth. Esophagus intubated without any difficulty. It was gradually advanced into the stomach and duodenum and carefully examined. The bulb was significant for a 1.5 cm area of cratered ulceration without any active bleeding or high-risk stigmata of bleeding which was biopsied and the second part of the duodenum appeared normal and was also biopsied . The scope at this time was withdrawn to the stomach, adequately insufflated with air, and upon careful examination, mucosa of the antrum, body, cardia and the fundus appeared normal, With biopsies of the antrum and body taken. The scope was then withdrawn into the esophagus. The GE junction was located at 39 cm from the incisors. The esophagus appeared normal All with lower esophageal biopsies taken. There were no erosions or ulcerations seen and the patient tolerated the procedure well. IMPRESSION: 1. Cratered ulcer in the duodenal bulb without active bleeding or high risk stigmata for bleeding. 2. Biopsies of the duodenum, duodenal bulb ulcer, antrum body and lower eso phagus. RECOMMENDATIONS: The findings of this examination were discussed with the patient. Okay to resume diet. Okay to resume medications. Patient should be maintained on twice daily PPI therapy. Await pathology from biopsies. Continue malignancy workup as per the oncology service.
[2021-04-14 13:09] VITALS: BP 103/64; PULSE 67; TEMP 97.8
[2021-04-14 13:28] LABS: Gamma Globulin 1.03 g/dL (0.70-1.50)
--- NOTE | 2021-04-14 14:34 | P.PN ---
Subjective Progress Note Date: 04/14/21 Principal diagnosis: Adrenal Masses, Lung masses EGD today, cratered non-bleeding ulcer identified Objective - Vital Signs Vital signs: Vital Signs Temp 97.8 F 04/14/21 13:07 Pulse 67 04/14/21 13:07 Resp 16 04/14/21 13:07 BP 103/64 04/14/21 13:07 Pulse Ox 98 04/14/21 13:07 Intake & Output 04/13/21 04/14/21 04/14/21 18:59 06:59 18:59 Intake Total 400 1300 350 Balance 400 1300 350 Weight 86.183 kg Intake: IV 350 Intake, IV Titration 400 1100 Amount Sodium Chloride 0.9% 1, 400 1100 000 ml @ 100 mls/hr IV . Q10H [facility]ECTOR Rx#:[id number] Oral 200 Other: Voiding Method Toilet # Voids 1 2 - Exam - Constitutional General appearance: cooperative, no acute distress - EENT Eyes: EOMI, PERRLA ENT: hard of hearing, NA/AT, normal oropharynx - Neck no supraclavicular, iliac, axillilary, or cervical lymphadenopathy on exam. Neck: normal ROM - Respiratory Respiratory: bilateral: diminished (L>R) - Cardiovascular Rhythm: regular Heart sounds: normal: S1, S2 - Gastrointestinal General gastrointestinal: distended, normal bowel sounds, soft, tenderness - Integumentary Integumentary: normal - Neurologic Neurologic: CNII-XII intact - Musculoskeletal Musculoskeletal: generalized weakness, strength equal bilaterally - Psychiatric Psychiatric: A&O x's 3, appropriate affect, intact judgment & insight - Labs CBC & Chem 7: 04/14/21 05:31 04/14/21 05:31 Labs: Abnormal Lab Results - Last 24 Hours (Table) 04/12/21 04/14/21 04/14/21 Range/Units 16:51 05:31 05:31 RBC 3.15 L (4.30-5.90) m/uL Hgb 10.0 L (13.0-17.5) gm/dL Hct 30.4 L (39.0-53.0) % Lymphocytes # 0.7 L (1.0-4.8) k/uL Lymphocytes # (Manual) 0.45 L (1.0-4.8) k/uL Sodium 136 L (137-145) mmol/L Calcium 8.2 L (8.4-10.2) mg/dL Total Protein 4.8 L (6.3-8.2) g/dL Albumin 2.5 L (3.5-5.0) g/dL Albumin (PEP) 2.60 L (3.80-4.90) g/dL [id number] 0.42 H (0.10-0.40) g/dL Beta Globulins 0.55 L (0.60-1.30) g/dL Assessment and Plan Plan: Assessment and Recommendations: Bilateral Adrenal Masses: - Concern for Metastatic Malignant Process. - Discussed with primary team at possibility that this is benign process, and maybe attempting tissue diagnosis at site of LLL nodule would be more beneficial, however with the side of the non-specific lung nodule (<1cm) it was felt that adrenal mass would be the best source of sample within the current images. - Ct of the Chest from today with contrast shows multiple subcentimeter masses that appear consistent with a metastatic process - This is felt that the adrenal masses are more likely metastatic as well and would be the best targeted approach at this time, however a primary source is not identified clearly on imaging or clinical exam. - We have asked GI to further evaluate EGD Acute Renal Insufficiency: Improving Normocytic Anemia: - Workup ordered - Further await immunofixation suspicious protein electrophoresis for paraprotein - B12, MMA, Folate, Retic Pending Weight Loss: Unintentional - 25lb in 3 weeks Rheumatoid Arthritis: - Recheck status ordered Pancreatitis: Improved - Non-contrasted imaging - Further imaging maybe beneficial, however can perform outpatient PET if biopsy reveals a positive malignant process Hx: Daily alcohol use Discussed with primary team Adrenal Biopsy today Non-SPecific Pulm Nodules - Potentially related to his know RA Await pathology results. Physician attest: I have completed the full history and physical and agree with above dictation, dictated as a scribe
[2021-04-14] MEDS ORDERED: PANTOPRAZOLE 40 MG TABLET PO SCH (17:30)
--- NOTE | 2021-04-14 19:12 | P.DS ---
Providers Date of admission: 04/10/21 22:32 Expected date of discharge: 04/14/21 Attending physician: Camilo Juarez Consults: 04/10/21 21:56 Consult Physician Routine Consulting Provider: Fabio Betancourt Consult Reason/Comments: Large bilateral adrenal masses, 8mm left lower lobe nodule Do you want consulting provider notified?: Yes 04/12/21 16:48 Consult Physician Routine Consulting Provider: Lazaro Villa Consult Reason/Comments: GI Eval for picture of metastatic disease lungs, no hx egd, Do you want consulting provider notified?: Yes Primary care physician: Camilo Juarez Hospital Course: 65-year-old male was admitted to the hospital for acute abdominal pain, extensive diagnostic workup in emergency department; elevated lipase; computed tomography scan of the abdomen which showed findings including mass lesions on bilateral adrenal glands and an 8 mm nodule in the lower lobe of the left lung.He has remote history of weight loss of 20 pounds over the last few months. During hospital course of stay, CT findings of abdomen and pelvis of concerning for primary pancreatic malignancy with adrenal, renal and pulmonary metastatic disease; hematology/oncology was consulted for expert opinion and recommendations. CT findings of the chest revealed multiple bilateral pulmonary nodules. Patient underwent a biopsy of the adrenal for pathology of source of m alignancy. He also had esophagogastroduodenoscopy with biopsy,cauterization ulcer in the duodenal bulb, and biopsies of the duodenum, duodenal bulb ulcer, antrum body and lower esophagus.Patient to follow closely with primary care one to 2 days, gastroenterology, hematology/oncology for further workup of possible source of metastatic malignancy Assessment: Acute Pancreatitis:etiology of pancreatitis unknown Acute renal failure: Resolved with IV fluids Hyponatremia:Resolved with IV fluids Weight loss and mass lesions and the adrenal glands and a nodule in the lung high possibly of malignancy hypothyroidism Hyperlipidemia History of EtOH abuse full code Health Concerns: Multiple comorbidities Concern from metastatic cancer Pertinent Studies: CT abdomen pelvis,overall findings, concerning for primary pancreatic malignancy with adrenal, renal and pulmonary metastatic disease CT of the chest, Multiple bilateral pulmonary nodules measuring up to 1 cm Procedures: Adrenal biopsy, awaiting pathology report Esophagogastroduodenoscopy with biopsy,cauterization ulcer in the duodenal bulb, and biopsies of the duodenum, duodenal bulb ulcer, antrum body and lower esophagus. Patient Condition at Discharge: Fair Plan - Discharge Summary Discharge Rx Participant: Yes New Discharge Prescriptions: Continue Levothyroxine Sodium [Synthroid] 200 mcg PO DAILY Zolpidem Tartrate [Ambien Cr] 12.5 mg PO HS Atorvastatin Calcium [Lipitor] 10 mg PO DAILY Discharge Medication List Atorvastatin Calcium [Lipitor] 10 mg PO DAILY 04/10/21 [History] Levothyroxine Sodium [Synthroid] 200 mcg PO DAILY 04/10/21 [History] Zolpidem Tartrate [Ambien Cr] 12.5 mg PO HS 04/10/21 [History] Follow up Appointment(s)/Referral(s): Camilo Juarez MD [Primary Care Provider] - 04/16/21 4:00 pm Fabio Betancourt MD [STAFF PHYSICIAN] - 04/30/21 10:15 am Rashmi Patel MD [STAFF PHYSICIAN] - 04/22/21 10:30 am Patient Instructions/Handouts: Pancreatitis (ED), Adrenal Gland Biopsy (DC) Discharge Disposition: HOME SELF-CARE
[2021-04-15 09:11] LABS: Methylmalonic Acid 0.12 umol/L (<0.40)
[2021-04-16 22:36] LABS: LD Isoenzymes 1 15 % (19-38); LD Isoenzymes 2 32 % (30-43); LD Isoenzymes 3 28 % (16-26); LD Isoenzymes 4 14 % (3-12); LD Isoenzymes 5 11 % (3-14); Lactacte Dehydrogenase(LD) ISO 160 U/L (120-250); Metanephrine, Free <25 pg/mL (< OR = 57); Normetanephrine, Free 74 pg/mL (< OR = 148); Total, Free (MN + NMN) 74 pg/mL (< OR = 205)
--- NOTE | 2021-04-17 17:39 | CDI ---
Documentation Clarification Form Date: 04/17/2021 05:30:51 PM From: Dewayne Madera Admit Date: 04/10/2021 10:32:00 PM Patient Name: Delfin Whitmore Visit Number: [id number] Discharge Date: 04/14/2021 04:21:00 PM ATTENTION: The Clinical Documentation Specialists (CDI) and [facility] Coding Staff appreciate your assistance in clarifying documentation. Please respond to the clarification below the line at the bottom and electronically sign. The CDI & [facility] Coding staff will review the response and follow-up if needed. Please note: Queries are made part of the Legal Health Record. If you have any questions, please contact the author of this message via ITS. Dr. 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 (Coding guidelines do not allow coding professionals to code based on pathology results; therefore, clarification is requested. History/risk factors: abdominal pain, L adrenal mass Clinical Indicators: CT abdomen-concern for primary pancreatic malignancy Treatment: biopsy of L adrenal mass Please clarify if you agree with the pathology report diagnosis of [insert result/diagnosis]: [ X ] Yes [ ] No [ ] Other (please specify) [ ] Unable to determine MTDD
--- NOTE | 2021-04-17 17:45 | CDI ---
Documentation Clarification Form Date: 04/17/21 From: Dewayne Madera Admit Date: 04/10/2021 10:32:00 PM Patient Name: Delfin Whitmore Visit Number: [id number] Discharge Date: 04/14/2021 04:21:00 PM ATTENTION: The Clinical Documentation Specialists (CDI) and [facility] Coding Staff appreciate your assistance in clarifying documentation. Please respond to the clarification below the line at the bottom and electronically sign. The CDI & [facility] Coding staff will review the response and follow-up if needed. Please note: Queries are made part of the Legal Health Record. If you have any questions, please contact the author of this message via ITS. Dr. 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 Coding guidelines do not allow coding professionals to code based on pathology results; therefore, clarification is requested. 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 [ X] Yes [ ] No [ ] Other (please specify) [ ] Unable to determine MTDD
== END 2021-04-14 16:21 | disposition home or self-care (01) | DRG 840 ==
LOC: EC 16:38 → 5NMEDONC 22:32
PROVIDERS: ADMIT Family Medicine; ATTEND Family Medicine
PROC: 0GB23ZX Excision of Left Adrenal Gland, Percutaneous Approach, Diagnostic (ICD-10-PCS; 2021-04-13)
PROC: 0DB68ZX Excision of Stomach, Via Natural or Artificial Opening Endoscopic, Diagnostic (ICD-10-PCS; 2021-04-14)
PROC: 0DB78ZX Excision of Stomach, Pylorus, Via Natural or Artificial Opening Endoscopic, Diagnostic (ICD-10-PCS; 2021-04-14)
PROC: 0DB38ZX Excision of Lower Esophagus, Via Natural or Artificial Opening Endoscopic, Diagnostic (ICD-10-PCS; 2021-04-14)
PROC: 0DB98ZX Excision of Duodenum, Via Natural or Artificial Opening Endoscopic, Diagnostic (ICD-10-PCS; principal; 2021-04-14 07:30)
DX: C83.33 Diffuse large B-cell lymphoma, intra-abdominal lymph nodes (principal); K85.90 Acute pancreatitis without necrosis or infection, unspecified; K26.4 Chronic or unspecified duodenal ulcer with hemorrhage; N17.9 Acute kidney failure, unspecified; E87.1 Hypo-osmolality and hyponatremia; E86.1 Hypovolemia; R79.89 Other specified abnormal findings of blood chemistry; R63.4 Abnormal weight loss; E03.9 Hypothyroidism, unspecified; E27.9 Disorder of adrenal gland, unspecified; M06.9 Rheumatoid arthritis, unspecified; Z20.822 Contact with and (suspected) exposure to COVID-19; F10.10 Alcohol abuse, uncomplicated; Z79.890 Hormone replacement therapy; R91.8 Other nonspecific abnormal finding of lung field; D64.9 Anemia, unspecified; Z87.891 Personal history of nicotine dependence; E78.5 Hyperlipidemia, unspecified; I10 Essential (primary) hypertension; Z79.899 Other long term (current) drug therapy
CPT/HCPCS: 36415; 43239; 60699; 71260; 74177; 77012; 80048; 80053; 80061; 81003; 82024; 82150; 82378; 82533; 82607; 82728; 82746; 82784; 83540; 83550; 83625; 83690; 83835; 83883; 83921; 84153; 84165; 84260; 84443; 84550; 85025; 85027; 85610; 85652; 86038; 86301; 86316; 86334; 86431; 87635; 88305; 88341; 88342; 96361; 96374; 99285

== ENCOUNTER → 2021-04-17 | Outpatient (CLI) | payer BC ==
--- NOTE | 2021-04-20 11:00 | PE ---
Nuclear medicine PET/CT HISTORY: B-cell lymphoma, initial, adrenal glands, metastatic Patient received 9.6 mCi F-18 FDG intravenously delayed scanning was performed from the skull base to the mid thighs. A localization and attenuation correction CT scan was performed. Correlation to CT chest 04/12/2021, abdomen and pelvis 04/10/2021 Chest and neck: Within the left upper lobe there is a soft tissue nodule measuring 16 mm, there is as sociated hypermetabolic uptake, SUV is 14.9. There is an atypical pattern of uptake seen within the l eft ventricle along the posterior wall and inferiorly on the left ventricle. There is a left pleural effusion. Some uptake is present along the posterior pleural surface inferiorly in the right chest, S UV 15.3, soft tissue nodule in the left lower lobe shows uptake, SUV 8.8. Some additional subcentimet er nodules are present within the lungs. ABDOMEN: Bilateral adrenal masses are present, SUV 32 on the right. Multiple renal masses are also pr esent with associated uptake, SUV 27. There are multiple foci of abnormal soft tissue uptake associat ed with the small bowel, SUV 32. Osseous structures show no suspicious uptake IMPRESSION: Findings consistent with patient's history of lymphoma
== END | disposition home or self-care (01) ==
LOC: RADPETMAIN 07:20
PROVIDERS: ATTEND Internal Medicine Hematology & Oncology
DX: C85.10 Unspecified B-cell lymphoma, unspecified site (principal)
CPT/HCPCS: 78815; A9552

== ENCOUNTER 2021-05-09 11:52 | Inpatient (IN) | payer BC ==
[2021-05-09] MEDS ORDERED: SODIUM CHLORIDE 0.9% 1,000 ML IV STA (12:35)
[2021-05-09] MEDS ORDERED: KETOROLAC 15 MG/ML 1 ML VIAL IVP STA (13:14)
[2021-05-09 13:19] LABS: Basophils % (A) 0 %; Eosinophils % (A) 0 %; HCT 22.7 % (39.0-53.0); Lymphocytes # (A) 0.4 k/uL (1.0-4.8); Lymphocytes % (A) 5 %; MCH 30.2 pg (25.0-35.0); MCHC 34.9 g/dL (31.0-37.0); Mean Platelet Volume 7.6; Monocytes # (A) 0.9 k/uL (0-1.0); Monocytes % (A) 11 %; Neutrophils # (A) 6.2 k/uL (1.3-7.7); Neutrophils % (A) 80 %; Poikilocytosis Moderate; RBC 2.62 m/uL (4.30-5.90); RDW 15.9 % (11.5-15.5); WBC 7.8 k/uL (3.8-10.6)
[2021-05-09 13:20] LABS: HGB 7.9 gm/dL (13.0-17.5)
--- NOTE | 2021-05-09 13:20 | ED ---
Abdominal Pain HPI - General Chief Complaint: Abdominal Pain Stated Complaint: abd pain Time Seen by Provider: 05/09/21 12:24 Source: patient, family, RN notes reviewed, old records reviewed Mode of arrival: ambulatory Limitations: no limitations - History of Present Illness Initial Comments: This is a 65-year-old male with a history of B cell lymphoma, diverticulitis in the past who states she's had abdominal pain for the past 3 days. He states that sharp in nature 10/10 severity at its worse is over the lower abdomen on both sides. Nose 4-5/10 severity she's had diarrhea no nausea vomiting denies any fevers chills or sweats. He has been on several different medications without relief. No dysuria no hematuria does not get worse with movements or with deep breathing. It does currently is somewhat better if he is in a position. He has been eating and drinking he states normally. MD Complaint: abdominal pain - Related Data Home Medications Medication Instructions Recorded Confirmed Atorvastatin Calcium [Lipitor] 10 mg PO DAILY 04/10/21 04/10/21 Levothyroxine Sodium [Synthroid] 200 mcg PO DAILY 04/10/21 04/10/21 Zolpidem Tartrate [Ambien Cr] 12.5 mg PO HS 04/10/21 04/10/21 Allergies Allergy/AdvReac Type Severity Reaction Status Date / Time No Known Allergies Allergy Verified 05/09/21 12:17 Review of Systems ROS Statement: Those systems with pertinent positive or pertinent negative responses have been documented in the HPI. ROS Other: All systems not noted in ROS Statement are negative. Past Medical History Past Medical History: Cancer, Thyroid Disorder Additional Past Medical History / Comment(s): neck pain. Diverticulitis. lymphoma History of Any Multi-Drug Resistant Organisms: Unobtainable Past Surgical History: Unable to Obtain Additional Past Surgical History / Comment(s): Cataracts. Sinus sx Past Anesthesia/Blood Transfusion Reactions: No Reported Reaction Past Psychological History: Unable to Obtain Smoking Status: Never smoker Past Alcohol Use History: Abuse, Daily, Heavy Past Drug Use History: Unable to Obtain - Past Family History Father Family Medical History: Cancer Mother Family Medical History: Cancer Additional Family Medical History / Comment(s): Ovarian Cancer General Exam - General Exam Comments Initial Comments: This is a well-developed well-nourished awake alert oriented 3 male Limitations: no limitations General appearance: alert, anxious, in distress Head exam: Present: atraumatic, normocephalic, normal inspection Eye exam: Present: normal appearance, PERRL, EOMI. Absent: scleral icterus, conjunctival injection, periorbital swelling ENT exam: Present: mucous membranes dry Neck exam: Present: normal inspection. Absent: tenderness, meningismus, lymphadenopathy Respiratory exam: Present: normal lung sounds bilaterally. Absent: respiratory distress, wheezes, rales, rhonchi, stridor Cardiovascular Exam: Present: regular rate, normal rhythm, normal heart sounds. Absent: systolic murmur, diastolic murmur, rubs, gallop, clicks GI/Abdominal exam: Present: soft, tenderness, normal bowel sounds. Absent: distended, guarding, rebound, rigid Rectal exam: Present: deferred Extremities exam: Present: normal inspection, full ROM, normal capillary refill. Absent: tenderness, pedal edema, joint swelling, calf tenderness Back exam: Present: normal inspection Neurological exam: Present: alert, oriented X3, CN II-XII intact Psychiatric exam: Present: normal affect, normal mood Skin exam: Present: warm, dry, intact, normal color. Absent: rash Course Vital Signs 05/09/21 05/09/21 12:15 14:11 Temperature 98.0 F 101.2 F H Pulse Rate 94 84 Respiratory 16 18 Rate Blood Pressure 93/56 94/57 O2 Sat by Pulse 97 97 Oximetry Medical Decision Making - Medical Decision Making I did discuss findings with patient family the patient is feeling somewhat better after the initial pain medication. Patient be admitted for IV antibiotics and surgical consultation case was discussed with Dr. Noble - Lab Data Result diagrams: 05/09/21 12:56 05/09/21 12:56 Lab Results 05/09/21 05/09/21 05/09/21 Range/Units 12:56 12:56 12:56 WBC 7.8 (3.8-10.6) k/uL RBC 2.62 L (4.30-5.90) m/uL Hgb 7.9 L D (13.0-17.5) gm/dL Hct 22.7 L (39.0-53.0) % MCV 86.5 D (80.0-100.0) fL MCH 30.2 (25.0-35.0) pg MCHC 34.9 (31.0-37.0) g/dL RDW 15.9 H (11.5-15.5) % Plt Count 341 D (150-450) k/uL MPV 7.6 Neutrophils % 80 % Lymphocytes % 5 % Monocytes % 11 % Eosinophils % 0 % Basophils % 0 % Neutrophils # 6.2 (1.3-7.7) k/uL Lymphocytes # 0.4 L (1.0-4.8) k/uL Monocytes # 0.9 (0-1.0) k/uL Eosinophils # 0.0 (0-0.7) k/uL Basophils # 0.0 (0-0.2) k/uL Poikilocytosis Moderate PT (9.0-12.0) sec INR (<1.2) APTT (22.0-30.0) sec Sodium 134 L (137-145) mmol/L Potassium 3.6 (3.5-5.1) mmol/L Chloride 102 (98-107) mmol/L Carbon Dioxide 23 (22-30) mmol/L Anion Gap 9 mmol/L BUN 12 (9-20) mg/dL Creatinine 0.69 (0.66-1.25) mg/dL Est GFR (CKD-EPI)AfAm >90 (>60 ml/min/1.73 sqM) Est GFR (CKD-EPI)NonAf >90 (>60 ml/min/1.73 sqM) Glucose 116 H (74-99) mg/dL Plasma Lactic Acid Ryan (0.7-2.0) mmol/L Calcium 8.1 L (8.4-10.2) mg/dL Total Bilirubin 0.8 (0.2-1.3) mg/dL AST 23 (17-59) U/L ALT 14 (4-49) U/L Alkaline Phosphatase 74 (38-126) U/L Creatine Kinase 43 L (55-170) U/L Troponin I (0.000-0.034) ng/mL Total Protein 5.3 L (6.3-8.2) g/dL Albumin 2.9 L (3.5-5.0) g/dL Amylase <30 L (30-110) U/L Lipase 75 (23-300) U/L Urine Color Yellow Urine Appearance Clear (Clear) Urine pH 7.5 (5.0-8.0) Ur Specific [place] >1.050 H (1.001-1.035) Urine Protein Negative (Negative) Urine Glucose (UA) Negative (Negative) Urine Ketones 1+ H (Negative) Urine Blood Negative (Negative) Urine Nitrite Negative (Negative) Urine Bilirubin Negative (Negative) Urine Urobilinogen <2.0 (<2.0) mg/dL Ur Leukocyte Esterase Negative (Negative) 05/09/21 05/09/21 05/09/21 Range/Units 12:56 12:56 12:56 WBC (3.8-10.6) k/uL RBC (4.30-5.90) m/uL Hgb (13.0-17.5) gm/dL Hct (39.0-53.0) % MCV (80.0-100.0) fL MCH (25.0-35.0) pg MCHC (31.0-37.0) g/dL RDW (11.5-15.5) % Plt Count (150-450) k/uL MPV Neutrophils % % Lymphocytes % % Monocytes % % Eosinophils % % Basophils % % Neutrophils # (1.3-7.7) k/uL Lymphocytes # (1.0-4.8) k/uL Monocytes # (0-1.0) k/uL Eosinophils # (0-0.7) k/uL Basophils # (0-0.2) k/uL Poikilocytosis PT 11.6 (9.0-12.0) sec INR 1.1 (<1.2) APTT 24.3 (22.0-30.0) sec Sodium (137-145) mmol/L Potassium (3.5-5.1) mmol/L Chloride (98-107) mmol/L Carbon Dioxide (22-30) mmol/L Anion Gap mmol/L BUN (9-20) mg/dL Creatinine (0.66-1.25) mg/dL Est GFR (CKD-EPI)AfAm (>60 ml/min/1.73 sqM) Est GFR (CKD-EPI)NonAf (>60 ml/min/1.73 sqM) Glucose (74-99) mg/dL Plasma Lactic Acid Ryan 0.7 (0.7-2.0) mmol/L Calcium (8.4-10.2) mg/dL Total Bilirubin (0.2-1.3) mg/dL AST (17-59) U/L ALT (4-49) U/L Alkaline Phosphatase (38-126) U/L Creatine Kinase (55-170) U/L Troponin I <0.012 (0.000-0.034) ng/mL Total Protein (6.3-8.2) g/dL Albumin (3.5-5.0) g/dL Amylase (30-110) U/L Lipase (23-300) U/L Urine Color Urine Appearance (Clear) Urine pH (5.0-8.0) Ur Specific [place] (1.001-1.035) Urine Protein (Negative) Urine Glucose (UA) (Negative) Urine Ketones (Negative) Urine Blood (Negative) Urine Nitrite (Negative) Urine Bilirubin (Negative) Urine Urobilinogen (<2.0) mg/dL Ur Leukocyte Esterase (Negative) - Radiology Data Radiology results: report reviewed (Imaging reviewed evidence of colitis and diverticulitis several L please see complete report), image reviewed Disposition Clinical Impression: Colitis, Fever, Anemia Disposition: ADMITTED IP TO THIS [facility] Condition: Fair Referrals: Camilo Juarez MD [Primary Care Provider] - 1-2 days
[2021-05-09 13:21] LABS: MCV 86.5 fL (80.0-100.0); Platelet Count 341 k/uL (150-450)
[2021-05-09 13:26] LABS: ALT 14 U/L (4-49); AST 23 U/L (17-59); African American GFR (CKD) >90 (>60 ml/min/1.73 sqM); Albumin 2.9 g/dL (3.5-5.0); Alkaline Phosphatase 74 U/L (38-126); Amylase <30 U/L (30-110); Anion Gap 9 mmol/L; Blood Urea Nitrogen 12 mg/dL (9-20); Calcium 8.1 mg/dL (8.4-10.2); Carbon Dioxide 23 mmol/L (22-30); Chloride 102 mmol/L (98-107); Creatine Kinase 43 U/L (55-170); Glucose 116 mg/dL (74-99); Lipase 75 U/L (23-300); Non-African American GFR(CKD) >90 (>60 ml/min/1.73 sqM); Potassium 3.6 mmol/L (3.5-5.1); Sodium 134 mmol/L (137-145); Total Bilirubin 0.8 mg/dL (0.2-1.3); Total Protein 5.3 g/dL (6.3-8.2)
[2021-05-09 13:34] LABS: INR 1.1 (<1.2); Partial Thromboplastin Time 24.3 sec (22.0-30.0); Prothrombin Time 11.6 sec (9.0-12.0)
--- NOTE | 2021-05-09 13:58 | CT ---
EXAMINATION TYPE: CT abdomen pelvis w con DATE OF EXAM: 05/09/2021 COMPARISON: CT April 10, 2021 HISTORY: Bilateral lower quad pain, recent diagnosis of lymphoma started in pancreas CT DLP: 919.7 mGycm, Automated Exposure Control for Dose Reduction was Utilized. CONTRAST: CT scan of the abdomen and pelvis is performed without oral and with IV Contrast, patient injected wi th 100 mL of Isovue 300. FINDINGS: LUNG BASES: Persistent 9 mm posterior left lower lobe nodule. More prominent adjacent left basilar li near atelectasis. LIVER/GB: No significant abnormality is appreciated. PANCREAS: No significant abnormality is seen. SPLEEN: No significant abnormality is seen. ADRENALS: Heterogeneous hypodense masses redemonstrated though diminished in size. Right adrenal mass measures 4.3 x 3.6 cm current study image 22 and left adrenal mass measures 3.9 x 3.8 cm current nasreen dy image 20. KIDNEYS: Satisfactory cortical medullary uptake and excretion without hydronephrosis seen bilaterally . BOWEL: Moderate to severe wall thickening with moderate ill-defined fluid and fat stranding in the si gmoid colon. Some diverticula in the proximal sigmoid colon proximal to this are identified. There is new low density 2.7 x 2.0 cm area axial image 70 in the anterior aspect of the mid sigmoid colon kimani ng the periphery with smaller low dense foci inferior and anterior to this. PROSTATE/SEMINAL VESICLES: Prostate gland upper limits of normal. LYMPH NODES: Adenopathy in the peripancreatic and oni hepatic spaces less prominent along with scat tered throughout the upper to mid abdominal mesentery. OSSEOUS STRUCTURES: No significant abnormality is seen. OTHER: Mild to moderate mixed plaque in the aorta with slight ectasia. No greater than 3.0 cm aneurys m. Mild wall thickening in the bladder. IMPRESSION: New moderate to severe focal colitis mid sigmoid colon. Low density areas are felt to ref lect organizing could well fluid collection or developing abscesses. No definitive free air currently . Overall positive treatment response with improving adrenal masses and upper to mid abdominal adenop athy.
[2021-05-09 14:00] LABS: Appearance,Urine Clear (Clear); Bilirubin,Urine Negative (Negative); Blood,Urine Negative (Negative); Color,Urine Yellow; Glucose,Urine (UA) Negative (Negative); Ketones,Urine 1+ (Negative); Leukocyte Esterase,Urine Negative (Negative); Nitrite,Urine Negative (Negative); PH, Urine 7.5 (5.0-8.0); Protein,Urine Negative (Negative); Urobilinogen,Urine <2.0 mg/dL (<2.0)
[2021-05-09 14:01] LABS: Specific Gravity,Urine >1.050 (1.001-1.035)
[2021-05-09] MEDS ORDERED: PIPERACILLIN-TAZOBACTAM 3.375 GM in SODIUM CHLORIDE 0.9% 100 ML IVPB STA (14:30)
[2021-05-09] MEDS ORDERED: NALOXONE 0.4 MG/ML 1 ML VIAL IV PRN (15:10)
[2021-05-09] MEDS ORDERED: ACETAMINOPHEN TAB 325 MG TAB PO PRN (15:38)
[2021-05-09] MEDS ORDERED: LACTULOSE 20 GM/30 ML CUP PO PRN (17:02)
[2021-05-09] MEDS: SODIUM CHLORIDE 0.9% 1,000 ML IV SCH ×2 (18:04→21:45)
--- NOTE | 2021-05-09 19:24 | XR ---
EXAMINATION TYPE: XR chest 2V DATE OF EXAM: 05/09/2021 COMPARISON: NONE HISTORY: Fever. TECHNIQUE: Frontal and lateral views of the chest are obtained. FINDINGS: There is no focal air space opacity, pleural effusion, or pneumothorax seen. The cardiac silhouette size is within normal limits. The osseous structures are intact. Right PICC is in place. IMPRESSION: No acute cardiopulmonary process.
[2021-05-09] MEDS ORDERED: LORazepam 0.5 MG TAB PO PRN (19:58)
[2021-05-09] MEDS: HYDROmorphone 0.5 MG/0.5 ML SYRINGE IVP PRN (20:27)
[2021-05-09] MEDS: ACYCLOVIR 200 MG CAP PO SCH (20:31)
[2021-05-09] MEDS: HEPARIN SODIUM,PORCINE/PF 5,000 UNIT/0.5 ML SYRINGE SQ SCH (20:32)
[2021-05-09] MEDS: PANTOPRAZOLE 40 MG/10 ML VIAL IV SCH (20:33)
--- NOTE | 2021-05-09 21:15 | HP ---
HISTORY AND PHYSICAL DATE OF SERVICE: 05/09/2021 CHIEF COMPLAINT: Abdominal pain. I am covering for Dr. Juarez. HISTORY OF PRESENT ILLNESS: This 65-year-old gentleman with the past medical history of hypothyroidism, history of diverticulitis, history of lymphoma, history of cataracts, being followed by Dr. Camilo Juarez in the outpatient setting, receiving chemotherapy under Dr. Parham. Currently the patient is complaining of severe pain in the left lower quadrant at least for the last 3 days. Pain was sharp in character, 10/10 in intensity. The patient came to [facility]. Patient had features of anemia. White count is normal, but the patient has features of colitis and abdomen and pelvis CAT scan was done which was reviewed personally by me and showed significant lesions of moderate to severe wall thickening with moderate ill-defined fluid and fat stranding of the sigmoid colon. Some diverticulitis was also started. The patient being admitted for further evaluation and treatment. There is no history of fever, rigors. No headache, loss of consciousness, seizures. No hematochezia or melena. PAST MEDICAL HISTORY: History of hypothyroidism, history of diverticulosis, history of B cell lymphoma, on chemo. MEDICATIONS: Ambien, Senna, lactulose, Colace, Zovirax, Protonix, Zofran, Synthroid, Lipitor, zyloprim. ALLERGIES: None. FAMILY HISTORY: History of colon cancer in the family. SOCIAL HISTORY: No history of smoking. No alcohol intake. REVIEW OF SYSTEMS: ENT No history of diminished hearing or vision. CARDIOVASCULAR No angina or palpitations. RESPIRATORY No cough, no hemoptysis. GI As mentioned earlier. No dysuria or hematuria. NERVOUS No numbness or weakness. ALLERGY/IMMUNOLOGY No asthma or hayfever. MUSCULOSKELETAL As mentioned earlier. HEMATOLOGY/ONCOLOGY As mentioned earlier. ENDOCRINE No history of diabetes or hypothyroidism. CONSTITUTIONAL As mentioned earlier. DERMATOLOGY Negative. RHEUMATOLOGY Negative, PSYCHIATRY As mentioned earlier. PHYSICAL EXAM: Alert and oriented x3. Pulse is 84, blood pressure 94/60, respiration 18, temperature 101.2, pulse ox 97% on room air. HEENT: Conjunctivae normal. Oral mucosa moist. NECK: No jugular venous distention. No lymph node enlargement. CARDIOVASCULAR: S1, S2, muffled. No S3, no S4, RESPIRATORY: Diminished breath sounds at the bases. No rhonchi, no crackles. ABDOMEN: Soft. Mild diffuse distention. Mild diffuse tenderness on the left side of the abdomen present. Otherwise, no mass palpable. No ascites.. LEGS: No edema, no swelling. NERVOUS SYSTEM: Higher functions mentioned earlier. Moves all four limbs. No focal motor or sensory deficits. LYMPHATICS: No lymph node in neck or axilla. SKIN: No rash. JOINTS: No active deforming arthropathy. LABS: WBC 7.2, hemoglobin 7.2. Other labs are noted. ASSESSMENT: 1. Acute abdominal pain with possible acute sigmoid colitis. 2. History of B-cell lymphoma on chemotherapy. 3. Anemia, normocytic secondary to malignancy. 4. Hyponatremia. 5. Severe pain. 6. Hypothyroidism. 7. History of diverticulitis. 8. History of cataracts. 9. History of sinus surgery. 10.History of ETOH abuse. 11.Remote history of nicotine dependence. 12.FULL CODE. RECOMMENDATIONS AND DISCUSSION: In this 65-year-old gentleman who presented with multiple complex medical issues, we will monitor the patient closely, continue the current management and symptomatic treatment. Otherwise, at this time I recommend pain medications, broad-spectrum IV antibiotics. I would also recommend hematology/oncology consultation. Keep the patient n.p.o. except medications until the pain subsides. Prognosis guarded. Further recommendations to follow. MMODL / IJN: [id number] /
[2021-05-09] MEDS: ZOLPIDEM 5 MG TAB PO SCH (21:24)
[2021-05-09] MEDS: ONDANSETRON 4 MG TAB PO SCH (21:43)
[2021-05-09] MEDS: PROCHLORPERAZINE 5 MG TAB PO SCH (21:43)
[2021-05-10] MEDS: PIPERACILLIN-TAZOBACTAM 3.375 GM in SODIUM CHLORIDE 0.9% 100 ML IVPB SCH ×3 (00:12→17:08)
[2021-05-10] MEDS: KETOROLAC 15 MG/ML 1 ML VIAL IVP PRN ×4 (00:17→23:49)
[2021-05-10] MEDS: HYDROmorphone 0.5 MG/0.5 ML SYRINGE IVP PRN ×3 (05:12→18:29)
[2021-05-10] MEDS: LEVOTHYROXINE 100 MCG TAB PO SCH (05:48)
[2021-05-10 07:44] LABS: Basophils % (A) 0 %; Eosinophils % (A) 0 %; HGB 7.1 gm/dL (13.0-17.5); Lymphocytes # (A) 0.3 k/uL (1.0-4.8); Lymphocytes % (A) 6 %; MCH 31.1 pg (25.0-35.0); MCHC 35.8 g/dL (31.0-37.0); MCV 87.1 fL (80.0-100.0); Mean Platelet Volume 7.3; Monocytes # (A) 0.9 k/uL (0-1.0); Monocytes % (A) 15 %; Neutrophils # (A) 4.2 k/uL (1.3-7.7); Neutrophils % (A) 75 %; Platelet Count 312 k/uL (150-450); Poikilocytosis Slight; RBC 2.28 m/uL (4.30-5.90); RDW 15.9 % (11.5-15.5); WBC 5.6 k/uL (3.8-10.6)
[2021-05-10] MEDS: SENNOSIDES 8.6 MG TAB PO SCH (07:48)
[2021-05-10] MEDS: ACYCLOVIR 200 MG CAP PO SCH ×2 (07:48→20:58)
[2021-05-10] MEDS: PANTOPRAZOLE 40 MG/10 ML VIAL IV SCH ×2 (07:48→20:57)
[2021-05-10] MEDS: DOCUSATE 100 MG CAP PO SCH (07:49)
[2021-05-10] MEDS: HEPARIN SODIUM,PORCINE/PF 5,000 UNIT/0.5 ML SYRINGE SQ SCH ×2 (07:49→20:55)
[2021-05-10] MEDS: ATORVASTATIN 10 MG TAB PO SCH (07:49)
[2021-05-10] MEDS: allopurinoL 300 MG TAB PO SCH (07:49)
[2021-05-10] MEDS: ONDANSETRON 4 MG TAB PO SCH ×3 (07:50→20:58)
[2021-05-10] MEDS: PROCHLORPERAZINE 5 MG TAB PO SCH ×2 (07:50→20:55)
[2021-05-10 07:57] LABS: HCT 19.8 % (39.0-53.0)
[2021-05-10] MEDS ORDERED: PANTOPRAZOLE 40 MG TABLET PO SCH (09:00)
[2021-05-10 10:24] LABS: % Iron Saturation 12.17 (15.00-50.00); ALT 10 U/L (10-49); AST 14 U/L (14-35); African American GFR (CKD) 109.4 (60.0-200.0); Albumin/Globulin Ratio 1.71 (1.60-3.17); Alkaline Phosphatase 58 U/L (41-126); BUN/Creat Ratio 16.25 Ratio (12.00-20.00); Calcium 7.5 mg/dL (8.7-10.3); Carbon Dioxide 23.5 mmol/L (21.6-31.8); Chloride 107 mmol/L (96-109); Ferritin 2092.5 ng/mL (22.0-322.0); Globulin 1.7 g/dL (1.6-3.3); Glucose 120 mg/dL (70-110); Iron 23 ug/dL (65-175); Magnesium 1.6 mg/dL (1.5-2.4); Non-African American GFR(CKD) 94.4 (60.0-200.0); Phosphorus 2.4 mg/dL (2.4-5.1); Potassium 3.6 mmol/L (3.5-5.5); Sodium 136 mmol/L (135-145); Total Bilirubin 0.8 mg/dL (0.3-1.2); Total Iron Binding Capacity 189 ug/dL (228-460); Total Protein 4.6 g/dL (6.2-8.2); Vitamin B12 >4000.0 pg/mL (211-911)
[2021-05-10 11:27] LABS: LDH 129 U/L (120-246); Uric Acid 1.9 mg/dL (3.7-8.7)
--- NOTE | 2021-05-10 13:32 | P.CONS ---
History of Present Illness - Reason for Consult Consult date: 05/09/21 Status Post Cycle one of Chemotherapy Stage IV NHL-LBCL Requesting physician: Donya Noble - Chief Complaint Abdominal Pain - History of Present Illness Delfin was seen by us at [facility] after presenting with diffuse abdominal pain, anorexia, weight loss of 25 LBS in 3 months and severe weakness and loss of stamina. Was found to have bilateral large adrenal masses, small abdominal lesions including tail of pancreas and bilateral small pulmonary nodules. Biopsies of L adrenal mass and duodenal ulcer are + for high-grade diffuse large B-Cell Lymphoma, further studies are pending to R/O double hit lymphoma. The patient has history of RA, treated in past with immune suppresive therapy. He smoked 1 PPD X 20 years, quit 24 years ago, denies ETOH use. 05/06/21: Final stage of DLBL (Not double hit) > stage IV-B, was seen by Dr Peralta at [facility], started on clinical trial of R-CHOP+Selinexor > received cycle # 1 > feels so much better, no further fever or night sweats, stronger, not loosing weight any further. Status Post Cycle 1 on 05/01/21. He did receive Neulasta on 05/02. He presented with severe uncontrolled left lower abdominal pain, bowel movements have been minimal. Review of Systems All systems: negative Constitutional: Reports as per HPI Past Medical History Past Medical History: Cancer, Thyroid Disorder Additional Past Medical History / Comment(s): neck pain. Diverticulitis. lymphoma with current chemo and clinical trail chemo History of Any Multi-Drug Resistant Organisms: None Reported Past Surgical History: Unable to Obtain Additional Past Surgical History / Comment(s): Cataracts. Sinus sx Past Anesthesia/Blood Transfusion Reactions: No Reported Reaction Past Psychological History: No Psychological Hx Reported Smoking Status: Former smoker Past Alcohol Use History: Abuse, Daily, Heavy Additional Past Alcohol Use History / Comment(s): Last drink was 3 months ago; drank 1 bottle of wine per day. Past Drug Use History: None Reported - Past Family History Father Family Medical History: Cancer Additional Family Medical History / Comment(s): colon cancer Mother Family Medical History: Cancer Additional Family Medical History / Comment(s): Ovarian Cancer Medications and Allergies Home Medications Medication Instructions Recorded Confirmed Type Atorvastatin Calcium [Lipitor] 10 mg PO DAILY 04/10/21 05/09/21 History Levothyroxine Sodium [Synthroid] 200 mcg PO DAILY 04/10/21 05/09/21 History Zolpidem Tartrate [Ambien Cr] 12.5 mg PO HS 04/10/21 05/09/21 History Acyclovir [Zovirax] 400 mg PO BID 05/09/21 05/09/21 History Allopurinol [Zyloprim] 300 mg PO DAILY 05/09/21 05/09/21 History Docusate [Colace] 100 mg PO DAILY 05/09/21 05/09/21 History Lactulose 10 gm PO DAILY PRN 05/09/21 05/09/21 History Ondansetron HCl [Zofran] 4 mg PO TID 05/09/21 05/09/21 History Pantoprazole Sodium [Protonix] 40 mg PO DAILY 05/09/21 05/09/21 History Prochlorperazine [Compazine] 5 mg PO BID 05/09/21 05/09/21 History Sennosides [Senna] 17.2 mg PO DAILY 05/09/21 05/09/21 History Allergies Allergy/AdvReac Type Severity Reaction Status Date / Time No Known Allergies Allergy Verified 05/09/21 15:40 Physical Exam Vitals: Vital Signs Temp Pulse Resp BP Pulse Ox 05/09/21 17:04 98.1 F 74 16 98/65 97 05/09/21 15:26 98.2 F 70 18 96/57 96 05/09/21 14:11 101.2 F H 84 18 94/57 97 05/09/21 12:15 98.0 F 94 16 93/56 97 Intake and Output 05/09/21 05/09/21 05/09/21 06:59 14:59 22:59 Other: # Voids 1 Weight 81.647 kg 81.647 kg - Constitutional General appearance: cooperative, no acute distress - EENT Eyes: EOMI, PERRLA ENT: NA/AT, normal oropharynx - Neck Neck: normal ROM - Respiratory Respiratory: bilateral: CTA - Cardiovascular Rhythm: regular - Gastrointestinal General gastrointestinal: normal bowel sounds, soft, tenderness - Integumentary Integumentary: pale - Neurologic Neurologic: CNII-XII intact, focal deficits - Musculoskeletal Musculoskeletal: generalized weakness, strength equal bilaterally - Psychiatric Psychiatric: A&O x's 3, appropriate affect, intact judgment & insight Results CBC & Chem 7: 05/10/21 06:27 05/10/21 06:27 Labs: Abnormal Lab Results - Last 24 Hours (Table) 05/09/21 05/09/21 05/09/21 Range/Units 12:56 12:56 12:56 RBC 2.62 L (4.30-5.90) m/uL Hgb 7.9 L D (13.0-17.5) gm/dL Hct 22.7 L (39.0-53.0) % RDW 15.9 H (11.5-15.5) % Lymphocytes # 0.4 L (1.0-4.8) k/uL Sodium 134 L (137-145) mmol/L Glucose 116 H (74-99) mg/dL Calcium 8.1 L (8.4-10.2) mg/dL Creatine Kinase 43 L (55-170) U/L Total Protein 5.3 L (6.3-8.2) g/dL Albumin 2.9 L (3.5-5.0) g/dL Amylase <30 L (30-110) U/L Ur Specific [place] >1.050 H (1.001-1.035) Urine Ketones 1+ H (Negative) Chest x-ray: report reviewed CT scan - abdomen: report reviewed CT scan - chest: report reviewed Assessment and Plan (1) Non-Hodgkin lymphoma Current Visit: Yes Status: Acute Code(s): C85.90 - NON-HODGKIN LYMPHOMA, UNSPECIFIED, UNSPECIFIED SITE SNOMED Code(s): 565381029 (2) Anemia Current Visit: Yes Status: Acute Code(s): D64.9 - ANEMIA, UNSPECIFIED SNOMED Code(s): 539038790 (3) Colitis Current Visit: Yes Status: Acute Code(s): K52.9 - NONINFECTIVE GASTROENTERITIS AND COLITIS, UNSPECIFIED SNOMED Code(s): 67199851 Plan: Assessment and Recommendations: Severe Colitis with possible Abscess: - Fevers have improved, pain is controlled on OPioid management - Add FLagyl in addition to Zosyn in immunocompromised patient on chemotherapy NHL: - Status Post Cycle one clinical Trial RCHOP with Exp drug - DId receive Neulasta on 05/02 Long discussion with patient and , remain clear liquids to NPO
[2021-05-10] MEDS: metroNIDAZOLE-NS PMX 500 MG in SALINE 1 100ML.BAG IVPB SCH ×2 (15:58→23:44)
[2021-05-10] MEDS: SODIUM CHLORIDE 0.9% 1,000 ML IV SCH (15:59)
--- NOTE | 2021-05-10 16:05 | P.GSCN ---
History of Present Illness Consult date: 05/10/21 History of present illness: CHIEF COMPLAINT: Abdominal pain HISTORY OF PRESENT ILLNESS: The patient is a 65 year old male with recent diagnosis of B-cell lymphoma less than 1 month ago who presents with history of change in bowel habits and diarrhea. He has been recently admitted. He has abdominal pain for over 3 days. No reports of moderate blood in stools. No naus ea or vomiting. Denies any prior episodes. He completed a CT of the abdomen and pelvis for colitis. General surgery is consulted for abdominal pain. PAST MEDICAL HISTORY: See list and reviewed PAST SURGICAL HISTORY: See list and reviewed MEDICATIONS: See list and reviewed ALLERGIES: See list and reviewed SOCIAL HISTORY: See list and reviewed FAMILY HISTORY: See list and reviewed REVIEW OF ORGAN SYSTEMS: CONSTITUTIONAL: No fevers or chills. No recent weight loss. EYES: Has cataracts. HEENT: No difficulties with hearing. No nosebleeds. No difficulty swallowing. RESPIRATORY: Denies pneumonia. Denies any troubles with breathing or dyspnea on exertion. CARDIOVASCULAR: Has hyperlipidemia. GASTROINTESTINAL: Has gastroesophageal reflux disease. History of diverticulitis. History of heavy alcohol abuse. GENITOURINARY: Denies any blood in urine or increased urinary frequency. NEUROLOGICAL: Denies any numbness or tingling along the distal extremities. No seizure disorders or headaches. MUSCULOSKELETAL: Has back pain, stiffness or joint arthritis. Has gout. SKIN: No current skin cancer. No rash. PSYCHIATRIC: Denies current depression or suicidal thoughts. ENDOCRINE: Has hypothyroidism. Denies any blood sugar glucose intolerance. HEME/LYMPHATIC: On chemotherapy ALLERGY/IMMUNOLOGY: Recent diagnosis of lymphoma. BREAST: Denies current breast lumps, pain or nipple discharge. PHYSICAL EXAM: VITALS: Reviewed CONSTITUTIONAL: Well developed and in no acute distress. EYES: Conjuctivae without sclera icterus. Extraocular movements grossly intact. HEAD, EARS, NOSE, THROAT: Moist buccal mucosa. Head is atraumatic, normocephalic. Hears conversational speech. No nasal drainage. NECK: Supple. No JV distention. No thyroidomegaly. RESPIRATORY: Non-labored respirations and equal bilateral excursions. No gross wheezes. CARDIOVASCULAR: Palpable 2+ radial pulses. ABDOMEN: No diffuse peritonitis MUSCULOSKELETAL: Nail and fingers with good capillary refill. SKIN: Warm and well perfused with good skin turgor. NEUROLOGIC: Cranial nerves II through XII grossly intact. No focal or lateralizing signs. PSYCH: Appropriate affect. Alert and oriented to person, place and time. Displays appropriate insight. CLINCAL LABS: Reviewed. WBC normal at 5.6. Hemoglobin low 7.1 down from 7.9. Ferritin is elevated. IMAGING: CT of the abdomen and pelvis independently reviewed demonstrates fluid along the sigmoid colon with colitis. This is my independent interpretation. RADIOLOGY: CT of the abdomen and pelvis report reviewed with moderate to severe edema along the sigmoid colon. Improved intra-abdominal adenopathy. ASSESSMENT: 1. Abnormal computed tomography scan for colitis 2. B-cell lymphoma PLAN: 1. Recommend IV antibiotics. 2. Surgical options including colectomy were described should conservative measures fail. 3. Family agreed with conservative management with continued antibiotics at this time. 4. May benefit from reevaluation with computed tomography scan after 5 days from initial scan Past Medical History Past Medical History: Cancer, Thyroid Disorder Additional Past Medical History / Comment(s): neck pain. Diverticulitis. lymphoma with current chemo and clinical trail chemo History of Any Multi-Drug Resistant Organisms: None Reported Past Surgical History: Unable to Obtain Additional Past Surgical History / Comment(s): Cataracts. Sinus sx Past Anesthesia/Blood Transfusion Reactions: No Reported Reaction Past Psychological History: No Psychological Hx Reported Smoking Status: Former smoker Past Alcohol Use History: Abuse, Daily, Heavy Additional Past Alcohol Use History / Comment(s): Last drink was 3 months ago; drank 1 bottle of wine per day. Past Drug Use History: None Reported - Past Family History Father Family Medical History: Cancer Additional Family Medical History / Comment(s): colon cancer Mother Family Medical History: Cancer Additional Family Medical History / Comment(s): Ovarian Cancer Medications and Allergies Home Medications Medication Instructions Recorded Confirmed Type Atorvastatin Calcium [Lipitor] 10 mg PO DAILY 04/10/21 05/09/21 History Levothyroxine Sodium [Synthroid] 200 mcg PO DAILY 04/10/21 05/09/21 History Zolpidem Tartrate [Ambien Cr] 12.5 mg PO HS 04/10/21 05/09/21 History Acyclovir [Zovirax] 400 mg PO BID 05/09/21 05/09/21 History Allopurinol [Zyloprim] 300 mg PO DAILY 05/09/21 05/09/21 History Docusate [Colace] 100 mg PO DAILY 05/09/21 05/09/21 History Lactulose 10 gm PO DAILY PRN 05/09/21 05/09/21 History Ondansetron HCl [Zofran] 4 mg PO TID 05/09/21 05/09/21 History Pantoprazole Sodium [Protonix] 40 mg PO DAILY 05/09/21 05/09/21 History Prochlorperazine [Compazine] 5 mg PO BID 05/09/21 05/09/21 History Sennosides [Senna] 17.2 mg PO DAILY 05/09/21 05/09/21 History Allergies Allergy/AdvReac Type Severity Reaction Status Date / Time No Known Allergies Allergy Verified 05/09/21 15:40 Surgical - Exam Vital Signs Temp Pulse Resp BP Pulse Ox 98.0 F 94 16 93/56 97 05/09/21 12:15 05/09/21 12:15 05/09/21 12:15 05/09/21 12:15 05/09/21 12:15 Results - Labs 05/10/21 06:27 05/10/21 06:27 Abnormal Lab Results - Last 24 Hours (Table) 05/10/21 05/10/21 Range/Units 06:27 06:27 RBC 2.28 L (4.30-5.90) m/uL Hgb 7.1 L (13.0-17.5) gm/dL Hct 19.8 L* (39.0-53.0) % RDW 15.9 H (11.5-15.5) % Lymphocytes # 0.3 L (1.0-4.8) k/uL Glucose 120 H (70-110) mg/dL Uric Acid 1.9 L (3.7-8.7) mg/dL Calcium 7.5 L (8.7-10.3) mg/dL Iron 23 L (65-175) ug/dL TIBC 189 L (228-460) ug/dL % Saturation 12.17 L (15.00-50.00) Ferritin 2092.5 H (22.0-322.0) ng/mL Total Protein 4.6 L (6.2-8.2) g/dL Albumin 2.90 L (3.80-4.90) g/dL Vitamin B12 >4000.0 H (211-911) pg/mL Microbiology - Last 24 Hours (Table) 05/09/21 13:00 Blood Culture - Preliminary Blood No Growth after 24 hours 05/09/21 12:56 Blood Culture - Preliminary Blood No Growth after 24 hours 05/10/21 09:00 Urine Culture - Preliminary Urine,Voided Diabetes panel 05/10/21 Range/Units 06:27 Sodium 136 (135-145) mmol/L Potassium 3.6 (3.5-5.5) mmol/L Chloride 107 (96-109) mmol/L Carbon Dioxide 23.5 (21.6-31.8) mmol/L BUN 13.0 (9.0-27.0) mg/dL Creatinine 0.8 (0.6-1.5) mg/dL Glucose 120 H (70-110) mg/dL Calcium 7.5 L (8.7-10.3) mg/dL AST 14 (14-35) U/L ALT 10 (10-49) U/L Alkaline Phosphatase 58 (41-126) U/L Total Protein 4.6 L (6.2-8.2) g/dL Albumin 2.90 L (3.80-4.90) g/dL Calcium panel 05/10/21 Range/Units 06:27 Calcium 7.5 L (8.7-10.3) mg/dL Phosphorus 2.4 (2.4-5.1) mg/dL Albumin 2.90 L (3.80-4.90) g/dL Pituitary panel 05/10/21 Range/Units 06:27 Sodium 136 (135-145) mmol/L Potassium 3.6 (3.5-5.5) mmol/L Chloride 107 (96-109) mmol/L Carbon Dioxide 23.5 (21.6-31.8) mmol/L BUN 13.0 (9.0-27.0) mg/dL Creatinine 0.8 (0.6-1.5) mg/dL Glucose 120 H (70-110) mg/dL Calcium 7.5 L (8.7-10.3) mg/dL Adrenal panel 05/10/21 Range/Units 06:27 Sodium 136 (135-145) mmol/L Potassium 3.6 (3.5-5.5) mmol/L Chloride 107 (96-109) mmol/L Carbon Dioxide 23.5 (21.6-31.8) mmol/L BUN 13.0 (9.0-27.0) mg/dL Creatinine 0.8 (0.6-1.5) mg/dL Glucose 120 H (70-110) mg/dL Calcium 7.5 L (8.7-10.3) mg/dL Total Bilirubin 0.8 (0.3-1.2) mg/dL AST 14 (14-35) U/L ALT 10 (10-49) U/L Alkaline Phosphatase 58 (41-126) U/L Total Protein 4.6 L (6.2-8.2) g/dL Albumin 2.90 L (3.80-4.90) g/dL Assessment and Plan (1) B-cell lymphoblastic leukemia/lymphoma Current Visit: Yes Status: Acute Code(s): C91.Z0 - OTHER LYMPHOID LEUKEMIA NOT HAVING ACHIEVED REMISSION SNOMED Code(s): 023608826 (2) Diarrhea Current Visit: Yes Status: Acute Code(s): R19.7 - DIARRHEA, UNSPECIFIED SNOMED Code(s): 23872061 (3) Anemia Current Visit: Yes Status: Acute Code(s): D64.9 - ANEMIA, UNSPECIFIED SNOMED Code(s): 337615575 (4) Colitis Current Visit: Yes Status: Acute Code(s): K52.9 - NONINFECTIVE GASTROENTERITIS AND COLITIS, UNSPECIFIED SNOMED Code(s): 05900427
--- NOTE | 2021-05-10 20:28 | PN ---
PROGRESS NOTE DATE OF SERVICE: 05/10/2021. I am covering for Dr. Juarez. This 65 -year-old gentleman admitted with abdominal pain and colitis. Patient is started on IV antibiotics. Multiple consultants are following the patient closely, including Surgery and as well as Hematology/Oncology. Cultures are negative so far. PAST MEDICAL HISTORY: Reviewed. REVIEW OF SYSTEMS: CARDIOVASCULAR: No angina. RESPIRATORY: As mentioned earlier. GI: As mentioned earlier. : No dysuria. NERVOUS SYSTEM: No numbness or weakness. CURRENT MEDICATIONS: Reviewed and include: Tylenol, [place], Zyloprim, Lipitor, Colace, Dilaudid, Toradol, doses are reviewed. PHYSICAL EXAMINATION: Patient is alert and oriented x2. Pulse 74, blood pressure 98/53, respiration 18, temperature 98.2. Pulse ox 97% on room air. HEENT: Conjunctivae normal. NECK: No JVD. CARDIOVASCULAR: S1, S2 muffled. RESPIRATORY SYSTEM: Breath sounds diminished at the bases. A few scattered rhonchi and crackles. ABDOMEN: Soft, minimal tenderness. LEGS: No edema. No swelling. Nervous system: No focal deficits. LAB STUDIES: WBC 12.2, hemoglobin 7.1. Calcium is 7.5, uric acid is 1.9, magnesium is 1.6. ASSESSMENT: 1. Acute abdominal pain with possible acute sigmoid colitis. 2. History of B-cell lymphoma on chemotherapy. 3. Anemia, normocytic anemia secondary to malignancy. 4. Hyponatremia. 5. Severe pain. 6. Hypothyroidism. 7. History of diverticulitis. 8. History of cataracts. 9. History of sinus surgery. 10.History of ETOH abuse. 11.Remote history of nicotine dependence. 12.FULL CODE. RECOMMENDATIONS AND DISCUSSION: Continue current medications. Continue the broad-spectrum IV antibiotics. Repeat labs. Otherwise, the patient is on Zosyn, and Flagyl at this time. We will continue to monitor. HEMATOLOGY/ONCOLOGY consultation. Guarded prognosis. Further recommendations to follow. MMODL / IJN: [id number] /
[2021-05-10] MEDS: HYDROcodone/APAP 5-325MG 1 EACH TAB PO PRN (20:56)
[2021-05-10] MEDS: ZOLPIDEM 5 MG TAB PO SCH (20:57)
[2021-05-10] MEDS: TEMAZEPAM 15 MG CAP PO PRN (23:49)
[2021-05-11] MEDS: PIPERACILLIN-TAZOBACTAM 3.375 GM in SODIUM CHLORIDE 0.9% 100 ML IVPB SCH ×4 (02:40→23:58)
[2021-05-11] MEDS: SODIUM CHLORIDE 0.9% 1,000 ML IV SCH ×2 (02:41→14:56)
[2021-05-11] MEDS: LEVOTHYROXINE 100 MCG TAB PO SCH (05:53)
--- NOTE | 2021-05-11 07:20 | CONS ---
CONSULTATION DATE OF SERVICE: 05/10/2021 REASON FOR CONSULTATION: Colitis. HISTORY OF PRESENT ILLNESS: The patient is a 65-year-old male with a past medical history significant for B-cell lymphoma, diverticulitis. The patient recently got a PICC line 2 weeks ago and has received his 1st chemotherapy on April 24, 2021. The patient presenting to the ER for evaluation of pain to the lower abdominal area mostly on the left side that has been getting worse for the last 3 days. The patient describes the pain to be almost 10 out of 10 in severity on presentation to the hospital with some radiation across the lower abdominal area. The patient has felt nauseated but no vomiting. Has been complaining of constipation. He was started on some in the outpatient setting without any improvement. With persistence of the pain and developing some fever, that did concern the patient and he presented to the hospital. On arrival to the ER, the patient did have fever of 101.2 degrees Fahrenheit. The patient did have a normal white count with no left shift. Kidney function was normal. Liver enzymes are normal. Urine was negative. Hector PCR was negative. Patient did have a CT of abdomen and pelvis completed which was reported as severe colon focal colitis in the mid sigmoid region and low-density area organization could be collection or developing abscess. The patient has been evaluated by General surgery recommending medical treatment. Patient is currently on Zosyn. Infectious Disease was consulted for further management of antibiotic therapy. REVIEW OF SYSTEMS: Positive points have been mentioned in HPI. Rest of systems are negative. PAST MEDICAL HISTORY: B-cell lymphoma, diverticulitis, hypothyroidism. SURGICAL HISTORY: Cataract surgery. Sinus surgery. SOCIAL HISTORY: Denies smoking. Daily drinks. No drug use. FAMILY HISTORY: Mother with history of ovarian cancer. ALLERGIES: No known drug allergies. MEDICATIONS: The patient is currently on Tylenol, [place], Acyclovir, Zyloprim, Lipitor, Colace, heparin subcu, Toradol, Synthroid and Flagyl, Zosyn, Senokot, Restoril and Ambien. PHYSICAL EXAMINATION: Blood pressure is 96/59, pulse of 70, temperature of 98.3. He is 98% on room air. General description: The patient is a middle-aged male up in the bed in no distress. No tachypnea or accessory muscles of respiration use. HEENT: Examination shows pallor. No scleral icterus. Oral mucous membranes dry. NECK: Trachea central. No thyromegaly. LUNGS: Unlabored breathing. Clear to auscultation anteriorly. No wheeze or crackles. HEART: S1, S2. Regular rate and rhythm. ABDOMEN: Soft. No tenderness. Mild tenderness lower quadrant area. No guarding. No rigidity. No organomegaly. EXTREMITIES: No edema of the feet. SKIN EXAMINATION: No rash or mass palpable. NEUROLOGICAL: The patient is awake, alert, oriented x3. Mood and affect normal. LABS: Hemoglobin is 7.1, white count of 5.6, BUN of 13. Creatinine 0.8. Electrolytes have been normal. Liver enzymes are normal. Urine was negative. Hector PCR was negative. CT report mentioned above. DIAGNOSTIC IMPRESSION AND PLAN: Patient presented to the hospital with abdominal pain in this patient with evidence of diverticulitis and no evidence of any perforation or any well-formed abscess. We will need to cover for enteric gram-negative, both aerobes and anaerobes to be the likely pathogen. PLAN: 1. Zosyn 3.375 g q.8 hours to continue. 2. Gentle IV fluid. 3. We will follow up on clinical condition and further adjust medication if needed. Thank you for this consultation. Will follow this patient along with you. MMODL / IJN: [id number] /
[2021-05-11] MEDS: HYDROcodone/APAP 5-325MG 1 EACH TAB PO PRN (07:21)
[2021-05-11] MEDS: allopurinoL 300 MG TAB PO SCH (07:21)
[2021-05-11] MEDS: ONDANSETRON 4 MG TAB PO SCH ×3 (07:22→21:41)
[2021-05-11] MEDS: ACYCLOVIR 200 MG CAP PO SCH ×2 (07:22→21:41)
[2021-05-11] MEDS: PROCHLORPERAZINE 5 MG TAB PO SCH ×2 (07:22→21:41)
[2021-05-11] MEDS: SENNOSIDES 8.6 MG TAB PO SCH (07:22)
[2021-05-11] MEDS: PANTOPRAZOLE 40 MG/10 ML VIAL IV SCH ×2 (07:23→21:40)
[2021-05-11] MEDS: DOCUSATE 100 MG CAP PO SCH (07:23)
[2021-05-11] MEDS: ATORVASTATIN 10 MG TAB PO SCH (07:23)
[2021-05-11] MEDS: HEPARIN SODIUM,PORCINE/PF 5,000 UNIT/0.5 ML SYRINGE SQ SCH ×2 (07:23→21:40)
[2021-05-11] MEDS: metroNIDAZOLE-NS PMX 500 MG in SALINE 1 100ML.BAG IVPB SCH ×3 (07:27→23:58)
[2021-05-11 07:40] LABS: Basophils % (A) 0 %; Eosinophils % (A) 1 %; HCT 21.3 % (39.0-53.0); HGB 7.4 gm/dL (13.0-17.5); Hypochromasia Slight; Lymphocytes # (A) 0.5 k/uL (1.0-4.8); Lymphocytes % (A) 9 %; MCH 30.3 pg (25.0-35.0); MCHC 34.5 g/dL (31.0-37.0); MCV 87.7 fL (80.0-100.0); Mean Platelet Volume 7.7; Monocytes # (A) 0.6 k/uL (0-1.0); Monocytes % (A) 11 %; Neutrophils # (A) 4.4 k/uL (1.3-7.7); Neutrophils % (A) 78 %; Platelet Count 368 k/uL (150-450); Poikilocytosis Moderate; RBC 2.43 m/uL (4.30-5.90); RDW 15.6 % (11.5-15.5); WBC 5.6 k/uL (3.8-10.6)
[2021-05-11 10:03] LABS: African American GFR (CKD) 109.4 (60.0-200.0); Albumin/Globulin Ratio 1.76 (1.60-3.17); Anion Gap 6.9 mmol/L (4.00-12.00); BUN/Creat Ratio 16.25 Ratio (12.00-20.00); Calcium 7.5 mg/dL (8.7-10.3); Carbon Dioxide 25.1 mmol/L (21.6-31.8); Globulin 1.7 g/dL (1.6-3.3); Non-African American GFR(CKD) 94.4 (60.0-200.0); Potassium 3.5 mmol/L (3.5-5.5); Total Bilirubin 0.5 mg/dL (0.2-1.2); Total Protein 4.7 g/dL (6.2-8.2)
[2021-05-11] MEDS: HYDROmorphone 0.5 MG/0.5 ML SYRINGE IVP PRN ×2 (10:51→19:09)
[2021-05-11 12:37] VITALS: BMI 25.8
--- NOTE | 2021-05-11 13:32 | P.PN ---
Subjective Progress Note Date: 05/11/21 Principal diagnosis: Lymphoma and abdominal pain, ?colitis versus severe constipation Spoke with Dr. Mcbride (primary oncologist at [facility]) Patient with severe constipation earlier in week, despite aggressive bowel regimen. Serial Xrays to assess blockage/ileus and air. COntinue on flagyl and zosyn, and continue aggressive bowel regimen. Clears and bowel rest. Objective - Vital Signs Vital signs: Vital Signs Temp 97.8 F 05/11/21 11:26 Pulse 69 05/11/21 11:26 Resp 18 05/11/21 11:26 BP 101/61 05/11/21 11:26 Pulse Ox 97 05/11/21 11:26 Intake & Output 05/10/21 05/11/21 05/11/21 18:59 06:59 18:59 Intake Total 675 Balance 675 Weight 81.647 kg Intake: Intake, IV Titration 675 Amount Piperacillin-Tazobactam 3 100 .375 gm In Sodium Chloride 0.9% 100 ml @ 25 mls/hr IVPB Q8HR [facility] Rx# :[id number] Sodium Chloride 0.9% 1, 475 000 ml @ 75 mls/hr IV . [id number] HECTOR Rx#:[id number] metroNIDAZOLE-NS PMX 500 100 mg In Saline 1 100ml.bag @ 100 mls/hr IVPB Q8HR [facility] Rx#:[id number] Other: Voiding Method Toilet Toilet Toilet # Voids 2 1 - Exam - Constitutional General appearance: cooperative, no acute distress - EENT Eyes: EOMI, PERRLA ENT: NA/AT, normal oropharynx - Neck Neck: normal ROM - Respiratory Respiratory: bilateral: CTA - Cardiovascular Rhythm: regular - Gastrointestinal General gastrointestinal: normal bowel sounds, soft, tenderness - Integumentary Integumentary: pale - Neurologic Neurologic: CNII-XII intact, focal deficits - Musculoskeletal Musculoskeletal: generalized weakness, strength equal bilaterally - Psychiatric Psychiatric: A&O x's 3, appropriate affect, intact judgment & insight - Labs CBC & Chem 7: 05/11/21 05:59 05/11/21 05:59 Labs: Abnormal Lab Results - Last 24 Hours (Table) 05/10/21 05/11/21 05/11/21 Range/Units 09:11 05:59 05:59 RBC 2.43 L (4.30-5.90) m/uL Hgb 7.4 L (13.0-17.5) gm/dL Hct 21.3 L (39.0-53.0) % RDW 15.6 H (11.5-15.5) % Lymphocytes # 0.5 L (1.0-4.8) k/uL Calcium 7.5 L (8.7-10.3) mg/dL Total Protein 4.7 L (6.2-8.2) g/dL Albumin 3.00 L (3.80-4.90) g/dL Stool Lactoferrin POSITIVE A (NEGATIVE) Microbiology - Last 24 Hours (Table) 05/10/21 09:00 Urine Culture - Final Urine,Voided 05/10/21 09:11 Stool Culture - Preliminary Stool 05/09/21 13:00 Blood Culture - Preliminary Blood No Growth after 24 hours 05/09/21 12:56 Blood Culture - Preliminary Blood No Growth after 24 hours Assessment and Plan (1) Non-Hodgkin lymphoma Current Visit: Yes Status: Acute Code(s): C85.90 - NON-HODGKIN LYMPHOMA, UNSPECIFIED, UNSPECIFIED SITE SNOMED Code(s): 572431420 (2) Anemia Current Visit: Yes Status: Acute Code(s): D64.9 - ANEMIA, UNSPECIFIED SNOMED Code(s): 108238458 (3) Colitis Current Visit: Yes Status: Acute Code(s): K52.9 - NONINFECTIVE GASTROENTERITIS AND COLITIS, UNSPECIFIED SNOMED Code(s): 91623028 Plan: Assessment and Recommendations: Severe Colitis with possible Abscess: - Fevers have improved, pain is controlled on OPioid management - Add FLagyl in addition to Zosyn in immunocompromised patient on chemotherapy NHL: - Status Post Cycle one clinical Trial [facility] with Exp drug - DId receive Neulasta on 05/02 Long discussion with patient and , remain clear liquids Spoke with Dr. Mcbride (primary oncologist at [facility]) Patient with severe constipation earlier in week, despite aggressive bowel regimen. Serial Xrays to assess blockage/ileus and air. COntinue on flagyl and zosyn, and continue aggressive bowel regimen. Clears and bowel rest.
--- NOTE | 2021-05-11 13:48 | P.PN ---
<Pat Reed - Last Filed: 05/11/21 13:42> Subjective Progress Note Date: 05/11/21 CHIEF COMPLAINT: Abdominal pain HISTORY OF PRESENT ILLNESS: The patient is a 65 year old male with recent diagnosis of B-cell lymphoma less than 1 month ago who presents with history of change in bowel habits and diarrhea. No reports of moderate blood in stools. No nausea or vomiting. Denies any prior episodes. He completed a CT of the abdomen and pelvis for colitis. Patient reports that he is feeling better today he's had decrease in his abdominal pain. He is having flatus. Denies any bowel movements since . Afebrile. WBC 5.6 hemoglobin 7.4 platelets 365 sodium 136 potassium 3.5 creatinine 0.8 PHYSICAL EXAM: VITAL SIGNS: Reviewed GENERAL: Well-developed in no acute distress. HEENT: No sclera icterus. Extraocular movements grossly intact. Moist buccal mucosa. Head is atraumatic, normocephalic. Hears conversational speech. No nasal drainage. NECK: Supple without lymphadenopathy. CHEST: Non-labored respirations and equal bilateral excursions. CARDIOVASCULAR: Palpable 2+ radial pulses. ABDOMEN: Soft. Nondistended. Nontender. MUSCULOSKELETAL: No clubbing or cyanosis. NEUROLOGIC: No focal or lateralizing signs. Cranial nerves II through XII grossly intact. PSYCH: Appropriate affect. Alert and oriented to person, place and time. SKIN: Well perfused. Good skin turgor. ASSESSMENT: 1. Abnormal computed tomography scan for colitis 2. B-cell lymphoma PLAN: 1. Recommend IV antibiotics. 2. Surgical options including colectomy were described should conservative measures fail per Dr. Contreras 3. Family agreed with conservative management with continued antibiotics at this time. 4. May benefit from reevaluation with computed tomography scan after 5 days from initial scan Physician [employer] note has been reviewed by physician. Signing provider agrees with the documented findings, assessment, and plan of care. Objective - Vital Signs Vital signs: Vital Signs Temp 97.8 F 05/11/21 11:26 Pulse 69 05/11/21 11:26 Resp 18 05/11/21 11:26 BP 101/61 05/11/21 11:26 Pulse Ox 97 05/11/21 11:26 Intake & Output 06/20/21 06/21/21 06/21/21 18:59 06:59 18:59 Intake Total 675 Balance 675 Weight 81.647 kg Intake: Intake, IV Titration 675 Amount Piperacillin-Tazobactam 3 100 .375 gm In Sodium Chloride 0.9% 100 ml @ 25 mls/hr IVPB Q8HR [facility] Rx# :[id number] Sodium Chloride 0.9% 1, 475 000 ml @ 75 mls/hr IV . [id number] [facility] Rx#:[id number] metroNIDAZOLE-NS PMX 500 100 mg In Saline 1 100ml.bag @ 100 mls/hr IVPB Q8HR [facility] Rx#:[id number] Other: Voiding Method Toilet Toilet Toilet # Voids 2 1 - Labs CBC & Chem 7: 05/11/21 05:59 05/11/21 05:59 Labs: Abnormal Lab Results - Last 24 Hours (Table) 05/10/21 05/11/21 05/11/21 Range/Units 09:11 05:59 05:59 RBC 2.43 L (4.30-5.90) m/uL Hgb 7.4 L (13.0-17.5) gm/dL Hct 21.3 L (39.0-53.0) % RDW 15.6 H (11.5-15.5) % Lymphocytes # 0.5 L (1.0-4.8) k/uL Calcium 7.5 L (8.7-10.3) mg/dL Total Protein 4.7 L (6.2-8.2) g/dL Albumin 3.00 L (3.80-4.90) g/dL Stool Lactoferrin POSITIVE A (NEGATIVE) Microbiology - Last 24 Hours (Table) 05/10/21 09:00 Urine Culture - Final Urine,Voided 05/10/21 09:11 Stool Culture - Preliminary Stool 05/09/21 13:00 Blood Culture - Preliminary Blood No Growth after 24 hours 05/09/21 12:56 Blood Culture - Preliminary Blood No Growth after 24 hours <Trena Contreras - Last Filed: 05/12/21 06:59> Subjective CHIEF COMPLAINT: Abdominal pain HISTORY OF PRESENT ILLNESS: The patient is a 65 year old male with recent di agnosis of B-cell lymphoma who presents with colitis. Since being on antibiotics, he is passing flatus. No bowel movement in 5 days. His abdominal pain is better. REVIEW OF ORGAN SYSTEMS: No fevers or chills. No nausea or vomiting. No chest pain. PHYSICAL EXAM: VITALS: Reviewed CONSTITUTIONAL: Well developed and in no acute distress. EYES: Conjuctivae without sclera icterus. Extraocular movements grossly intact. HEAD, EARS, NOSE, THROAT: Moist buccal mucosa. Head is atraumatic, normo cephalic. Hears conversational speech. No nasal drainage. RESPIRATORY: Non-labored respirations and equal bilateral excursions. No gross wheezes. CARDIOVASCULAR: Palpable 2+ radial pulses. ABDOMEN: Decreased tenderness at left lower quadrant. MUSCULOSKELETAL: Nail and fingers with good capillary refill. SKIN: Warm and well perfused with good skin turgor. NEUROLOGIC: Cranial nerves II through XII grossly intact. No focal or lateralizing signs. PSYCH: Appropriate affect. Alert and oriented to person, place and time. Displays appropriate insight. CLINCAL LABS: Reviewed. WBC normal 5.6. Hemoglobin anemic 7.4 ASSESSMENT: 1. Abnormal computed tomography scan for colitis 2. B-cell lymphoma 3. Anemia PLAN: 1. Continue IV antibiotics. 2. Monitor of hemoglobin with oncology due to recent chemotherapy Objective - Vital Signs Vital signs: Vital Signs Temp 98.0 F 05/12/21 04:53 Pulse 77 05/12/21 04:53 Resp 16 05/12/21 04:53 BP 102/59 05/12/21 04:53 Pulse Ox 94 L 05/12/21 04:53 Intake & Output 05/11/21 05/11/21 05/12/21 06:59 18:59 06:59 Intake Total 987 415 7255 Balance 053 939 2990 Weight 81.647 kg Intake: Intake, IV Titration 628 897 9371 Amount Piperacillin-Tazobactam 3 100 100 100 .375 gm In Sodium Chloride 0.9% 100 ml @ 25 mls/hr IVPB Q8HR [facility] Rx# :[id number] Sodium Chloride 0.9% 1, 475 300 900 000 ml @ 75 mls/hr IV . [id number] [facility] Rx#:[id number] metroNIDAZOLE-NS PMX 500 100 100 100 mg In Saline 1 100ml.bag @ 100 mls/hr IVPB Q8HR [facility] Rx#:[id number] Oral 240 Other: Voiding Method Toilet Toilet Toilet # Voids 2 1 1 - Labs CBC & Chem 7: 05/12/21 05:08 05/11/21 05:59 Labs: Abnormal Lab Results - Last 24 Hours (Table) 05/11/21 05/11/21 05/12/21 Range/Units 05:59 05:59 05:08 RBC 2.43 L 2.28 L (4.30-5.90) m/uL Hgb 7.4 L 6.6 L* (13.0-17.5) gm/dL Hct 21.3 L 20.3 L (39.0-53.0) % RDW 15.6 H 16.4 H (11.5-15.5) % Lymphocytes # 0.5 L 0.6 L (1.0-4.8) k/uL Calcium 7.5 L (8.7-10.3) mg/dL Total Protein 4.7 L (6.2-8.2) g/dL Albumin 3.00 L (3.80-4.90) g/dL Microbiology - Last 24 Hours (Table) 05/09/21 13:00 Blood Culture - Preliminary Blood No Growth after 48 hours 05/09/21 12:56 Blood Culture - Preliminary Blood No Growth after 48 hours 05/10/21 09:00 Urine Culture - Final Urine,Voided Assessment and Plan (1) B-cell lymphoblastic leukemia/lymphoma Current Visit: Yes Status: Acute Code(s): C91.Z0 - OTHER LYMPHOID LEUKEMIA NOT HAVING ACHIEVED REMISSION SNOMED Code(s): 695298520 (2) Diarrhea Current Visit: Yes Status: Acute Code(s): R19.7 - DIARRHEA, UNSPECIFIED SNOMED Code(s): 25722041 (3) Anemia Current Visit: Yes Status: Acute Code(s): D64.9 - ANEMIA, UNSPECIFIED SNOMED Code(s): 674424049 (4) Colitis Current Visit: Yes Status: Acute Code(s): K52.9 - NONINFECTIVE GASTROENTERITIS AND COLITIS, UNSPECIFIED SNOMED Code(s): 85552087
--- NOTE | 2021-05-11 14:20 | XR ---
EXAMINATION TYPE: XR abdomen 2V DATE OF EXAM: 05/11/2021 CLINICAL DATA: 65-year-old male with history of cancer causing upset stomach, assess bowel air. [facility] COMPARISON: Correlation CT 05/09/2021 FINDINGS: There is patchy retrocardiac opacity. No evidence for free intraperitoneal air. Air-fluid levels within the right hemicolon. Some scattered minimal air is present in the left side o f the colon and mild within the rectum. No dilated small bowel is identified. Phlebolith in left side of the pelvis. IMPRESSION: 1. Patchy retrocardiac atelectasis or pneumonia. Clinically correlate. 2. Air-fluid levels primarily in the right side of the colon. Relatively little air within the left s geraldine of the colon. Ileus or a partial distal colonic obstruction are considerations. Some rectal air i s noted. 3. Overall pattern does not suggest a small bowel obstruction.
[2021-05-11] MEDS: KETOROLAC 15 MG/ML 1 ML VIAL IVP PRN ×2 (15:13→21:41)
--- NOTE | 2021-05-11 15:48 | PN ---
PROGRESS NOTE DATE OF SERVICE: 05/11/2021 I am covering for Dr. Juarez. INTERVAL HISTORY: This is a 65-year-old gentleman who was admitted with abdominal pain, possible acute sigmoid colitis, also was on empiric antibiotics. The patient also had history of chemotherapy. Surgery is following the patient closely. The abdominal x-ray done today showed some atelectasis and air-fluid levels also noted. There is no evidence of any bowel obstruction on the x-rays. No chest pain. No palpitations. No fever. The patient is still complaining of abdominal pain. PHYSICAL EXAMINATION: GENERAL: Patient is alert and oriented times three. VITAL SIGNS: Pulse 69, blood pressure 101/61, respirations 18, temperature 97.8, pulse ox 97% on room air. HEENT: Conjunctivae normal. NECK: No jugular venous distention. No carotid bruits. RESPIRATORY: Breath sounds diminished at the bases. No rhonchi, no crackles. HEART: S1 and S2, muffled. ABDOMEN: Soft. Mild diffuse tenderness, especially on the left side, left lower part. No guarding or rigidity. EXTREMITIES: No edema, no swelling. NERVOUS: No focal deficits. LAB STUDIES: Hemoglobin 7.4. Other labs are noted. Calcium is 7.5. Stool is positive for guaiac. ASSESSMENT: 1. Acute abdominal pain, possible acute sigmoid colitis. 2. History of B-cell lymphoma on chemotherapy. 3. Anemia, normocytic anemia secondary to malignancy. 4. Hyponatremia. 5. Severe pain. 6. Hypothyroidism. 7. History of diverticulitis. 8. History of cataracts. 9. History of sinus surgery. 10.History of ETOH abuse. 11.Remote history of nicotine dependence. 12.FULL CODE. RECOMMENDATIONS AND DISCUSSION: Continue current medications, continue with monitoring and symptomatic treatment. Otherwise, at this time I recommend continue with current medications. Otherwise, the patient is currently on empiric antibiotics. Continue the antibiotics and closely follow with Infectious Disease. Repeat labs. Guarded prognosis. Further recommendations to follow. MMODL / IJN: [id number] /
--- NOTE | 2021-05-11 21:11 | PN ---
PROGRESS NOTE DATE OF SERVICE: 05/11/2021. REASON FOR FOLLOWUP: Colitis. INTERVAL COURSE: History the patient is afebrile. The patient is breathing comfortably. The patient's left lower abdominal pain is slightly decreased in intensity. Denies any chest pain, shortness of breath or cough. No nausea, vomiting or diarrhea. Did not have any bowel movement. PHYSICAL EXAMINATION: Blood pressure 101/61 with a pulse of 69, temperature is 97.8, he is 97% on room air. General description is a middle-aged male lying in in no distress. Respiratory system: Unlabored breathing, clear to auscultation anteriorly. Heart: S1, S2. Regular rate and rhythm. Abdomen: Soft, mildly distended. No guarding or rigidity. Extremities: No edema of the feet. LABS: Hemoglobin 7.4, white count 5.7, BUN of 13, creatinine is 2.8. DIAGNOSTIC IMPRESSION AND PLAN: Patient with mild diverticulitis, patient covered with the Zosyn. Continue while waiting for this to stabilize and monitor clinical course closely. MMODL / IJN: [id number] /
[2021-05-11] MEDS: SENNOSIDES-DOCUSATE SODIUM 1 EACH TAB PO SCH (21:42)
[2021-05-11] MEDS: ZOLPIDEM 5 MG TAB PO SCH (21:42)
[2021-05-12] MEDS: TEMAZEPAM 15 MG CAP PO PRN ×2 (00:08→23:58)
[2021-05-12] MEDS: HYDROmorphone 0.5 MG/0.5 ML SYRINGE IVP PRN (03:40)
[2021-05-12] MEDS: SODIUM CHLORIDE 0.9% 1,000 ML IV SCH ×2 (03:44→21:22)
[2021-05-12] MEDS: KETOROLAC 15 MG/ML 1 ML VIAL IVP PRN (05:56)
[2021-05-12] MEDS: LEVOTHYROXINE 100 MCG TAB PO SCH (05:56)
[2021-05-12 06:10] LABS: Anisocytosis Slight; Basophils % (A) 0 %; Eosinophils % (A) 1 %; HCT 20.3 % (39.0-53.0); Hypochromasia Slight; Lymphocytes # (A) 0.6 k/uL (1.0-4.8); Lymphocytes % (A) 11 %; MCHC 32.5 g/dL (31.0-37.0); MCV 89.1 fL (80.0-100.0); Mean Platelet Volume 7.5; Monocytes # (A) 0.6 k/uL (0-1.0); Monocytes % (A) 12 %; Neutrophils # (A) 3.7 k/uL (1.3-7.7); Neutrophils % (A) 73 %; Platelet Count 386 k/uL (150-450); Poikilocytosis Moderate; RBC 2.28 m/uL (4.30-5.90); RDW 16.4 % (11.5-15.5); WBC 5.1 k/uL (3.8-10.6)
[2021-05-12 06:18] LABS: HGB 6.6 gm/dL (13.0-17.5)
[2021-05-12] MEDS: ACYCLOVIR 200 MG CAP PO SCH ×2 (09:15→21:05)
[2021-05-12] MEDS: ATORVASTATIN 10 MG TAB PO SCH (09:15)
[2021-05-12] MEDS: HEPARIN SODIUM,PORCINE/PF 5,000 UNIT/0.5 ML SYRINGE SQ SCH ×2 (09:15→21:06)
[2021-05-12] MEDS: SENNOSIDES-DOCUSATE SODIUM 1 EACH TAB PO SCH ×2 (09:15→21:06)
[2021-05-12] MEDS: PIPERACILLIN-TAZOBACTAM 3.375 GM in SODIUM CHLORIDE 0.9% 100 ML IVPB SCH ×2 (09:16→16:28)
[2021-05-12] MEDS: allopurinoL 300 MG TAB PO SCH (09:16)
[2021-05-12] MEDS: polyethylene glycoL 3350 17 GM POWD.PACK PO SCH (09:16)
[2021-05-12] MEDS: PROCHLORPERAZINE 5 MG TAB PO SCH ×2 (09:16→21:06)
[2021-05-12] MEDS: PANTOPRAZOLE 40 MG/10 ML VIAL IV SCH (09:17)
[2021-05-12] MEDS: ONDANSETRON 4 MG TAB PO SCH ×3 (09:17→21:07)
[2021-05-12] MEDS: metroNIDAZOLE-NS PMX 500 MG in SALINE 1 100ML.BAG IVPB SCH ×3 (09:20→23:59)
--- NOTE | 2021-05-12 11:36 | P.PN ---
Subjective Progress Note Date: 05/12/21 Principal diagnosis: Lymphoma and abdominal pain, ?colitis versus severe constipation He is doing much better today, no pain,walking halls. Did receive two units of PRBC, Objective - Vital Signs Vital signs: Vital Signs Temp 97.6 F 05/12/21 11:12 Pulse 70 05/12/21 11:12 Resp 16 05/12/21 04:53 BP 98/58 05/12/21 11:12 Pulse Ox 100 05/12/21 11:12 Intake & Output 05/11/21 05/12/21 05/12/21 18:59 06:59 18:59 Intake Total 740 1100 0 Balance 740 1100 0 Weight 81.647 kg Intake: Intake, IV Titration 500 1100 Amount Piperacillin-Tazobactam 3 100 100 .375 gm In Sodium Chloride 0.9% 100 ml @ 25 mls/hr IVPB Q8HR [facility] Rx# :[id number] Sodium Chloride 0.9% 1, 300 900 000 ml @ 75 mls/hr IV . [id number] [facility] Rx#:[id number] metroNIDAZOLE-NS PMX 500 100 100 mg In Saline 1 100ml.bag @ 100 mls/hr IVPB Q8HR [facility] Rx#:[id number] Oral 240 Blood Product 0 Rc As-1 Unit 0 [id number] Other: Voiding Method Toilet Toilet # Voids 1 1 - Exam - Constitutional General appearance: cooperative, no acute distress - EENT Eyes: EOMI, PERRLA ENT: NA/AT, normal oropharynx - Neck Neck: normal ROM - Respiratory Respiratory: bilateral: CTA - Cardiovascular Rhythm: regular - Gastrointestinal General gastrointestinal: normal bowel sounds, soft, tenderness - Integumentary Integumentary: pale - Neurologic Neurologic: CNII-XII intact, focal deficits - Musculoskeletal Musculoskeletal: generalized weakness, strength equal bilaterally - Psychiatric Psychiatric: A&O x's 3, appropriate affect, intact judgment & insight - Labs CBC & Chem 7: 05/12/21 05:08 05/12/21 05:08 Labs: Abnormal Lab Results - Last 24 Hours (Table) 05/12/21 05/12/21 Range/Units 05:08 07:10 RBC 2.28 L (4.30-5.90) m/uL Hgb 6.6 L* (13.0-17.5) gm/dL Hct 20.3 L (39.0-53.0) % RDW 16.4 H (11.5-15.5) % Lymphocytes # 0.6 L (1.0-4.8) k/uL Crossmatch See Detail Microbiology - Last 24 Hours (Table) 05/09/21 13:00 Blood Culture - Preliminary Blood No Growth after 48 hours 05/09/21 12:56 Blood Culture - Preliminary Blood No Growth after 48 hours 05/10/21 09:00 Urine Culture - Final Urine,Voided Assessment and Plan (1) Non-Hodgkin lymphoma Current Visit: Yes Status: Acute Code(s): C85.90 - NON-HODGKIN LYMPHOMA, UNSPECIFIED, UNSPECIFIED SITE SNOMED Code(s): 052547090 (2) Anemia Current Visit: Yes Status: Acute Code(s): D64.9 - ANEMIA, UNSPECIFIED SNOMED Code(s): 195321929 (3) Colitis Current Visit: Yes Status: Acute Code(s): K52.9 - NONINFECTIVE GASTROENTERITIS AND COLITIS, UNSPECIFIED SNOMED Code(s): 98189595 Plan: Assessment and Recommendations: Severe Colitis with possible Abscess: - Fevers have improved, pain is controlled on OPioid management - Add FLagyl in addition to Zosyn in immunocompromised patient on chemotherapy NHL: - Status Post Cycle one clinical Trial RCHOP with Exp drug - DId receive Neulasta on 05/02 Long discussion with patient and , remain clear liquids Spoke with Dr. Mcbride (primary oncologist at [facility]) Patient with severe constipation earlier in week, despite aggressive bowel regimen. Serial Xrays to assess blockage/ileus and air. COntinue on flagyl and zosyn, and continue aggressive bowel regimen. Clears and bowel rest. Transfuse one unit of irradiated PRBC today. PLan to increase diet today and see how he tolerates if still no pain, then can plan on discharge from our standpoint with a good bowel regimen in place.
[2021-05-12 14:53] LABS: African American GFR (CKD) 115.6 (60.0-200.0); Albumin 2.8 g/dL (3.80-4.90); Albumin/Globulin Ratio 1.87 (1.60-3.17); Anion Gap 7.5 mmol/L (4.00-12.00); BUN/Creat Ratio 15.71 Ratio (12.00-20.00); Calcium 7.2 mg/dL (8.7-10.3); Carbon Dioxide 21.5 mmol/L (21.6-31.8); Globulin 1.5 g/dL (1.6-3.3); Non-African American GFR(CKD) 99.7 (60.0-200.0); Potassium 3.3 mmol/L (3.5-5.5); Total Bilirubin 0.4 mg/dL (0.2-1.2); Total Protein 4.3 g/dL (6.2-8.2)
[2021-05-12] MEDS ORDERED: POTASSIUM CHLORIDE ER 20 MEQ TAB.ER PO STA (15:35)
--- NOTE | 2021-05-12 15:38 | P.PN ---
Subjective Progress Note Date: 05/12/21 CHIEF COMPLAINT: Abdominal pain HISTORY OF PRESENT ILLNESS: The patient is a 65 year old male with recent diagnosis of B-cell lymphoma less than 1 month ago who presents with evidence of colitis. He is on antibiotics. Patient is having bowel movements and flatus. Denies any nausea or vomiting. He reports decrease in his abdominal pain. Oncology has advanced his diet to dysphagia chopped. His hemoglobin is 6.6 and he is scheduled to receive 2 units of blood. Abdominal x-ray shows patchy retrocardiac atelectasis or pneumonia. Air-fluid levels primarily in the right side of the colon. Relatively little air with the left side of the colon. Ileus or partial distal colonic obstruction or consideration. Overall pattern does not suggest a small bowel obstruction. Afebrile. WBC 5.1 hemoglobin 6.6 platelets 386 sodium 137 potassium 3.3 PHYSICAL EXAM: VITAL SIGNS: Reviewed GENERAL: Well-developed in no acute distress. HEENT: No sclera icterus. Extraocular movements grossly intact. Moist buccal mucosa. Head is atraumatic, normocephalic. Hears conversational speech. No nasal draina ge. NECK: Supple without lymphadenopathy. CHEST: Non-labored respirations and equal bilateral excursions. CARDIOVASCULAR: Palpable 2+ radial pulses. ABDOMEN: Soft. Nondistended. Decreased tenderness in the left lower quadrant MUSCULOSKELETAL: No clubbing or cyanosis. NEUROLOGIC: No focal or lateralizing signs. Cranial nerves II through XII grossly intact. PSYCH: Appropriate affect. Alert and oriented to person, place and time. SKIN: Well perfused. Good skin turgor. ASSESSMENT: 1. Abnormal computed tomography scan for colitis 2. B-cell lymphoma 3. Anemia 4. Hypokalemia PLAN: -Replace potassium -Continue IV antibiotics per ID recommendations -Surgical options including colectomy were described should conservative measures fail per Dr. Contreras -Family agreed with conservative management with continued antibiotics at this time. -May benefit from reevaluation with computed tomography scan after 5 days from initial scan Physician [employer] note has been reviewed by physician. Signing provider agrees with the documented findings, assessment, and plan of care. Objective - Vital Signs Vital signs: Vital Signs Temp 98.2 F 05/12/21 14:55 Pulse 69 05/12/21 14:55 Resp 16 05/12/21 12:15 BP 105/47 05/12/21 14:55 Pulse Ox 99 05/12/21 14:55 Intake & Output 05/11/21 05/12/21 05/12/21 18:59 06:59 18:59 Intake Total 740 1100 310 Balance 740 1100 310 Weight 81.647 kg Intake: Intake, IV Titration 500 1100 Amount Piperacillin-Tazobactam 3 100 100 .375 gm In Sodium Chloride 0.9% 100 ml @ 25 mls/hr IVPB Q8HR [facility] Rx# :[id number] Sodium Chloride 0.9% 1, 300 900 000 ml @ 75 mls/hr IV . [id number] [facility] Rx#:[id number] metroNIDAZOLE-NS PMX 500 100 100 mg In Saline 1 100ml.bag @ 100 mls/hr IVPB Q8HR [facility] Rx#:[id number] Oral 240 Blood Product 310 Rc As-1 Unit 310 [id number] Other: Voiding Method Toilet Toilet Toilet # Voids 1 1 - Labs CBC & Chem 7: 05/12/21 05:08 05/12/21 05:08 Labs: Abnormal Lab Results - Last 24 Hours (Table) 05/12/21 05/12/21 05/12/21 Range/Units 05:08 05:08 07:10 RBC 2.28 L (4.30-5.90) m/uL Hgb 6.6 L* (13.0-17.5) gm/dL Hct 20.3 L (39.0-53.0) % RDW 16.4 H (11.5-15.5) % Lymphocytes # 0.6 L (1.0-4.8) k/uL Potassium 3.3 L (3.5-5.5) mmol/L Carbon Dioxide 21.5 L (21.6-31.8) mmol/L Calcium 7.2 L (8.7-10.3) mg/dL AST 13 L (14-35) U/L Total Protein 4.3 L (6.2-8.2) g/dL Albumin 2.80 L (3.80-4.90) g/dL Globulin 1.5 L (1.6-3.3) g/dL Crossmatch See Detail Microbiology - Last 24 Hours (Table) 05/09/21 13:00 Blood Culture - Preliminary Blood No Growth after 72 hours 05/09/21 12:56 Blood Culture - Preliminary Blood No Growth after 72 hours 05/10/21 09:00 Urine Culture - Final Urine,Voided
--- NOTE | 2021-05-12 20:03 | P.PN ---
Subjective Progress Note Date: 05/12/21 Principal diagnosis: Colitis abdominal pain 65-year-old male with past medical history of hypothyroidism, history of diverticulitis,history of lymphoma,history of cataracts was admitted to the hospital with diffuse abdominal pain. Patient had extensive diagnostic workup in emergency department revealing possible sigmoid colitis, anemia. Patient has been following hematology and oncology for chemotherapy for lymphoma treatment. Patients is being followed by multiple consultants due to the severity of illness. Patient is receiving empiric antibiotics for colitis. evaluation of the patient this a.m. patient resting comfortably in bed, patient continues to endorse mild abdominal pain and discomfort. Patient denies fever chills, shortness of breath chest pain, or palpitations at this time. Objective - Vital Signs Vital signs: Vital Signs Temp 98.2 F 05/12/21 19:06 Pulse 83 05/12/21 19:06 Resp 12 05/12/21 19:06 BP 129/64 05/12/21 19:06 Pulse Ox 98 05/12/21 19:06 Intake & Output 05/12/21 05/12/21 05/13/21 06:59 18:59 06:59 Intake Total 1100 1845 Balance 1100 1845 Intake: Intake, IV Titration 1100 1225 Amount Piperacillin-Tazobactam 3 100 125 .375 gm In Sodium Chloride 0.9% 100 ml @ 25 mls/hr IVPB Q8HR [facility] Rx# :[id number] Sodium Chloride 0.9% 1, 900 900 000 ml @ 75 mls/hr IV . [id number] [facility] Rx#:[id number] metroNIDAZOLE-NS PMX 500 100 200 mg In Saline 1 100ml.bag @ 100 mls/hr IVPB Q8HR [facility] Rx#:[id number] Blood Product 620 As-1 Unit 0 [id number] As-1 Unit 310 [id number] Other: Voiding Method Toilet Toilet # Voids 1 2 - Constitutional General appearance: Present: cooperative - EENT Eyes: Present: EOMI, PERRLA, normal appearance ENT: Present: normal oropharynx Ears: bilateral: normal - Neck Neck: Present: normal ROM Carotids: bilateral: upstroke normal - Respiratory Respiratory: bilateral: CTA (Anterior and posterior lung pelayo) - Cardiovascular Heart rate: 74 Rhythm: regular Heart sounds: normal: S1, S2 - Peripheral pulses radial pulse Peripheral Pulses: bilateral: Normal dorsalis pedis Peripheral Pulses: bilateral: Normal - Gastrointestinal General gastrointestinal: Present: tenderness Localized gastrointestinal: tender: diffuse - Integumentary Integumentary: Present: pale - Neurologic Neurologic: Present: CNII-XII intact - Musculoskeletal Musculoskeletal: Present: generalized weakness - Psychiatric Psychiatric: Present: A&O x's 3, appropriate affect, intact judgment & insight - Allied health notes Allied health notes reviewed: nursing - Labs CBC & Chem 7: 05/12/21 05:08 05/12/21 05:08 Labs: Abnormal Lab Results - Last 24 Hours (Table) 05/12/21 05/12/21 05/12/21 Range/Units 05:08 05:08 07:10 RBC 2.28 L (4.30-5.90) m/uL Hgb 6.6 L* (13.0-17.5) gm/dL Hct 20.3 L (39.0-53.0) % RDW 16.4 H (11.5-15.5) % Lymphocytes # 0.6 L (1.0-4.8) k/uL Potassium 3.3 L (3.5-5.5) mmol/L Carbon Dioxide 21.5 L (21.6-31.8) mmol/L Calcium 7.2 L (8.7-10.3) mg/dL AST 13 L (14-35) U/L Total Protein 4.3 L (6.2-8.2) g/dL Albumin 2.80 L (3.80-4.90) g/dL Globulin 1.5 L (1.6-3.3) g/dL Crossmatch See Detail Microbiology - Last 24 Hours (Table) 05/10/21 09:11 Stool Culture - Preliminary Stool 05/09/21 13:00 Blood Culture - Preliminary Blood No Growth after 72 hours 05/09/21 12:56 Blood Culture - Preliminary Blood No Growth after 72 hours Assessment and Plan Assessment: acute abdominal pain with possible acute sigmoid colitis history of B-cell lymphoma chemotherapy anemia, normocytic secondary to malignancy hyponatremia intractable pain hypothyroidism history of diverticulitis history of cataracts remote history of EtOH abuse remote history of nicotine abuse full code Plan: abdominal pain, acute sigmoid colitis, continues Zosyn and Flagyl and recommendations from infectious disease anemia, transfused 2 units of packed red blood cells continue to trend hemoglobin and hematocrit lymphoma, continue consultation with hematology oncology for recommendations and treatment plan continue to monitor vital signs and diagnostic testing further recommendations to come based on patient's clinical condition
[2021-05-12] MEDS: PANTOPRAZOLE 40 MG TABLET PO SCH (21:06)
[2021-05-12] MEDS: ZOLPIDEM 5 MG TAB PO SCH (21:07)
[2021-05-13 00:31] LABS: Anisocytosis Slight; HCT 28.6 % (39.0-53.0); Hypochromasia Slight; MCH 29.3 pg (25.0-35.0); MCHC 33.3 g/dL (31.0-37.0); MCV 88.2 fL (80.0-100.0); Mean Platelet Volume 7.3; Platelet Count 461 k/uL (150-450); Poikilocytosis Moderate; RBC 3.24 m/uL (4.30-5.90); RDW 16.5 % (11.5-15.5); WBC 6.1 k/uL (3.8-10.6)
[2021-05-13 00:41] LABS: HGB 9.5 gm/dL (13.0-17.5)
[2021-05-13] MEDS: PIPERACILLIN-TAZOBACTAM 3.375 GM in SODIUM CHLORIDE 0.9% 100 ML IVPB SCH ×2 (01:12→08:59)
--- NOTE | 2021-05-13 04:51 | PN ---
PROGRESS NOTE DATE OF SERVICE: 05/12/2021 REASON FOR FOLLOWUP: Colitis. INTERVAL COURSE: History the patient is afebrile. The patient is breathing comfortably. The patient denies having any chest pain or shortness of breath or cough. Abdominal pain has decreased in intensity. No vomiting and did have 3 bowel movements. No blood or mucus in the stool. PHYSICAL EXAMINATION: Blood pressure 130/78 with a pulse of 73, temperature 98.1. He is 95% on room air. General description is a middle-aged male lying in bed in no distress. Respiratory system: Unlabored breathing. Clear to auscultation anteriorly. Heart S1, S2. Regular rate and rhythm. Abdomen: Soft, no distention or guarding or rigidity. LABS: Hemoglobin 6.5, white count 5.1. BUN of 11, creatinine 0.7. DIAGNOSTIC IMPRESSION AND PLAN: Patient with colitis, possible diverticulitis, likely from enteric Gram-negative. The patient clinically responding to Zosyn that will be continued for now. Hopefully transition antibiotic on discharge as the patient continues to improve and monitor clinical course closely. MMODL / IJN: [id number] /
[2021-05-13] MEDS: LEVOTHYROXINE 100 MCG TAB PO SCH (05:54)
[2021-05-13 06:20] LABS: Anisocytosis Slight; HCT 25.9 % (39.0-53.0); HGB 9.1 gm/dL (13.0-17.5); Hypochromasia Slight; MCH 30.6 pg (25.0-35.0); MCHC 35.1 g/dL (31.0-37.0); MCV 87.3 fL (80.0-100.0); Mean Platelet Volume 7.6; Platelet Count 409 k/uL (150-450); Poikilocytosis Moderate; RBC 2.97 m/uL (4.30-5.90); RDW 16.1 % (11.5-15.5); WBC 5.3 k/uL (3.8-10.6)
[2021-05-13 07:16] LABS: Band Neutrophils % 2 %; Lymphocytes # (M) 0.95 k/uL (1.0-4.8); Neutrophils % (M) 65 %; Nucleated Red Blood Cells 0 /100 WBC (0-0); Polychromasia Present; Total Cells Counted 100
[2021-05-13] MEDS: metroNIDAZOLE-NS PMX 500 MG in SALINE 1 100ML.BAG IVPB SCH (08:59)
[2021-05-13] MEDS: PANTOPRAZOLE 40 MG TABLET PO SCH (09:00)
[2021-05-13] MEDS: ATORVASTATIN 10 MG TAB PO SCH (09:00)
[2021-05-13] MEDS: SENNOSIDES-DOCUSATE SODIUM 1 EACH TAB PO SCH (09:00)
[2021-05-13] MEDS: ONDANSETRON 4 MG TAB PO SCH (09:00)
[2021-05-13] MEDS: ACYCLOVIR 200 MG CAP PO SCH (09:00)
[2021-05-13] MEDS: polyethylene glycoL 3350 17 GM POWD.PACK PO SCH (09:00)
[2021-05-13] MEDS: HEPARIN SODIUM,PORCINE/PF 5,000 UNIT/0.5 ML SYRINGE SQ SCH (09:00)
[2021-05-13] MEDS: allopurinoL 300 MG TAB PO SCH (09:00)
[2021-05-13] MEDS: PROCHLORPERAZINE 5 MG TAB PO SCH (09:01)
[2021-05-13 12:24] VITALS: BP 121/63; PULSE 63; RESP 14; TEMP 97.4
[2021-05-13] MEDS: IOPAMIDOL CONTRAST (ORAL USE) VIAL PO PRN ×2 (12:33→13:31)
--- NOTE | 2021-05-13 12:46 | P.PN ---
Subjective Progress Note Date: 05/13/21 CHIEF COMPLAINT: Abdominal pain HISTORY OF PRESENT ILLNESS: The patient is a 65 year old male with recent diagnosis of B-cell lymphoma less than 1 month ago who presents with evidence of colitis. He is on antibiotics. Patient is feeling better. He denies any abdominal pain. Patient is having bowel movements and flatus. Denies any nausea or vomiting. His abdominal pain has resolved. He is tolerating diet. Afebrile. Patient is status post 2 units of blood. Hemoglobin has come up from 6.6-9.1. Potassium level pending PHYSICAL EXAM: VITAL SIGNS: Reviewed GENERAL: Well-developed in no acute distress. HEENT: No sclera icterus. Extraocular movements grossly intact. Moist buccal mucosa. Head is atraumatic, normocephalic. Hears conversational speech. No nasal drainage. NECK: Supple without lymphadenopathy. CHEST: Non-labored respirations and equal bilateral excursions. CARDIOVASCULAR: Palpable 2+ radial pulses. ABDOMEN: Soft. Nondistended. Nontender MUSCULOSKELETAL: No clubbing or cyanosis. NEUROLOGIC: No focal or lateralizing signs. Cranial nerves II through XII grossly intact. PSYCH: Appropriate affect. Alert and oriented to person, place and time. SKIN: Well perfused. Good skin turgor. ASSESSMENT: 1. Abnormal computed tomography scan for colitis 2. B-cell lymphoma 3. Anemia 4. Hypokalemia PLAN: -Patient can be discharge from surgical standpoint when cleared by infectious disease. Awaiting infectious disease discharge antibiotic recommendations. Physician Fire Adjuster note has been reviewed by physician. Signing provider agrees with the documented findings, assessment, and plan of care. Objective - Vital Signs Vital signs: Vital Signs Temp 97.4 F L 05/13/21 11:50 Pulse 63 05/13/21 11:50 Resp 14 05/13/21 11:50 BP 121/63 05/13/21 11:50 Pulse Ox 99 05/13/21 11:50 Intake & Output 05/12/21 05/13/21 05/13/21 18:59 06:59 18:59 Intake Total 1845 1410 Balance 1845 1410 Intake: Intake, IV Titration 1225 1100 Amount Piperacillin-Tazobactam 3 125 100 .375 gm In Sodium Chloride 0.9% 100 ml @ 25 mls/hr IVPB Q8HR COUNT INCLUDES THE [facility] Rx# :[id number] Sodium Chloride 0.9% 1, 900 900 000 ml @ 75 mls/hr IV . [id number] [facility] Rx#:[id number] metroNIDAZOLE-NS PMX 500 200 100 mg In Saline 1 100ml.bag @ 100 mls/hr IVPB Q8HR [facility] Rx#:[id number] Blood Product 620 310 Rc As-1 Unit 0 310 [id number] Rc As-1 Unit 310 [id number] Other: Voiding Method Toilet # Voids 2 2 - Labs CBC & Chem 7: 05/13/21 05:43 05/12/21 05:08 Labs: Abnormal Lab Results - Last 24 Hours (Table) 05/12/21 05/12/21 05/12/21 Range/Units 05:08 07:10 23:45 RBC 3.24 L (4.30-5.90) m/uL Hgb 9.5 L D (13.0-17.5) gm/dL Hct 28.6 L (39.0-53.0) % RDW 16.5 H (11.5-15.5) % Plt Count 461 H (150-450) k/uL Lymphocytes # (Manual) (1.0-4.8) k/uL Potassium 3.3 L (3.5-5.5) mmol/L Carbon Dioxide 21.5 L (21.6-31.8) mmol/L Calcium 7.2 L (8.7-10.3) mg/dL AST 13 L (14-35) U/L Total Protein 4.3 L (6.2-8.2) g/dL Albumin 2.80 L (3.80-4.90) g/dL Globulin 1.5 L (1.6-3.3) g/dL Crossmatch See Detail 05/13/21 Range/Units 05:43 RBC 2.97 L (4.30-5.90) m/uL Hgb 9.1 L (13.0-17.5) gm/dL Hct 25.9 L (39.0-53.0) % RDW 16.1 H (11.5-15.5) % Plt Count (150-450) k/uL Lymphocytes # (Manual) 0.95 L (1.0-4.8) k/uL Potassium (3.5-5.5) mmol/L Carbon Dioxide (21.6-31.8) mmol/L Calcium (8.7-10.3) mg/dL AST (14-35) U/L Total Protein (6.2-8.2) g/dL Albumin (3.80-4.90) g/dL Globulin (1.6-3.3) g/dL Crossmatch Microbiology - Last 24 Hours (Table) 05/10/21 09:11 Stool Culture - Preliminary Stool 05/09/21 13:00 Blood Culture - Preliminary Blood No Growth after 72 hours 05/09/21 12:56 Blood Culture - Preliminary Blood No Growth after 72 hours
--- NOTE | 2021-05-13 13:03 | PN ---
PROGRESS NOTE DATE OF SERVICE: 05/13/2021 REASON FOR FOLLOWUP: Focal colitis and question developing abscess. INTERVAL HISTORY: Patient is afebrile. The patient overall is feeling better. Breathing comfortably. Patient denies having any chest pain. No shortness of breath or cough. Abdominal pain is currently controlled. Did have some loose stools. PHYSICAL EXAMINATION: Blood pressure 120/70 with a pulse of 62. Temperature 98.2. He is 99% on room air. General description is a middle-aged male up in the chair in no distress. Respiratory system: Unlabored breathing. Clear to auscultation anteriorly. Heart S1, S2. Regular rate and rhythm. Abdomen: Soft, mild distended. No guarding. No rigidity. LABS: Hemoglobin 9.1, white count of 5.3. DIAGNOSTIC IMPRESSION AND PLAN: Patient with focal colitis/diverticulitis with question of possible developing abscess versus intramural. Case has been discussed in detail with the Radiology. We will repeat a CT to make sure no evidence of any developing abscess before transition to oral antibiotics. Continue Zosyn at this point. He is not cleared for discharge. MMODL / IJN: [id number] /
[2021-05-13 13:42] LABS: African American GFR (CKD) 109.4 (60.0-200.0); Albumin 2.9 g/dL (3.80-4.90); Albumin/Globulin Ratio 1.71 (1.60-3.17); Anion Gap 9.7 mmol/L (4.00-12.00); BUN/Creat Ratio 8.75 Ratio (12.00-20.00); Calcium 7.8 mg/dL (8.7-10.3); Carbon Dioxide 21.3 mmol/L (21.6-31.8); Globulin 1.7 g/dL (1.6-3.3); Magnesium 1.6 mg/dL (1.5-2.4); Non-African American GFR(CKD) 94.4 (60.0-200.0); Potassium 3.6 mmol/L (3.5-5.5); Total Bilirubin 0.4 mg/dL (0.3-1.2); Total Protein 4.6 g/dL (6.2-8.2)
--- NOTE | 2021-05-13 14:25 | P.PN ---
Subjective Progress Note Date: 05/13/21 Principal diagnosis: Lymphoma and abdominal pain, ?colitis versus severe constipation Patient tolerated diet, spoke to primary team and ok with discharge today. Objective - Vital Signs Vital signs: Vital Signs Temp 97.4 F L 05/13/21 11:50 Pulse 63 05/13/21 11:50 Resp 14 05/13/21 11:50 BP 121/63 05/13/21 11:50 Pulse Ox 99 05/13/21 11:50 Intake & Output 05/12/21 05/13/21 05/13/21 18:59 06:59 18:59 Intake Total 1845 1410 Balance 1845 1410 Intake: Intake, IV Titration 1225 1100 Amount Piperacillin-Tazobactam 3 125 100 .375 gm In Sodium Chloride 0.9% 100 ml @ 25 mls/hr IVPB Q8HR [facility] Rx# :[id number] Sodium Chloride 0.9% 1, 900 900 000 ml @ 75 mls/hr IV . [id number] [facility] Rx#:[id number] metroNIDAZOLE-NS PMX 500 200 100 mg In Saline 1 100ml.bag @ 100 mls/hr IVPB Q8HR [facility] Rx#:[id number] Blood Product 620 310 Rc As-1 Unit 0 310 [id number] Rc As-1 Unit 310 [id number] Other: Voiding Method Toilet # Voids 2 2 - Exam - Constitutional General appearance: cooperative, no acute distress - EENT Eyes: EOMI, PERRLA ENT: NA/AT, normal oropharynx - Neck Neck: normal ROM - Respiratory Respiratory: bilateral: CTA - Cardiovascular Rhythm: regular - Gastrointestinal General gastrointestinal: normal bowel sounds, soft, tenderness - Integumentary Integumentary: pale - Neurologic Neurologic: CNII-XII intact, focal deficits - Musculoskeletal Musculoskeletal: generalized weakness, strength equal bilaterally - Psychiatric Psychiatric: A&O x's 3, appropriate affect, intact judgment & insight - Labs CBC & Chem 7: 05/13/21 05:43 05/13/21 05:43 Labs: Abnormal Lab Results - Last 24 Hours (Table) 05/12/21 05/12/21 05/12/21 Range/Units 05:08 07:10 23:45 RBC 3.24 L (4.30-5.90) m/uL Hgb 9.5 L D (13.0-17.5) gm/dL Hct 28.6 L (39.0-53.0) % RDW 16.5 H (11.5-15.5) % Plt Count 461 H (150-450) k/uL Lymphocytes # (Manual) (1.0-4.8) k/uL Potassium 3.3 L (3.5-5.5) mmol/L Chloride (96-109) mmol/L Carbon Dioxide 21.5 L (21.6-31.8) mmol/L BUN (9.0-27.0) mg/dL BUN/Creatinine Ratio (12.00-20.00) Ratio Calcium 7.2 L (8.7-10.3) mg/dL AST 13 L (14-35) U/L ALT (10-49) U/L Total Protein 4.3 L (6.2-8.2) g/dL Albumin 2.80 L (3.80-4.90) g/dL Globulin 1.5 L (1.6-3.3) g/dL Crossmatch See Detail 05/13/21 05/13/21 Range/Units 05:43 05:43 RBC 2.97 L (4.30-5.90) m/uL Hgb 9.1 L (13.0-17.5) gm/dL Hct 25.9 L (39.0-53.0) % RDW 16.1 H (11.5-15.5) % Plt Count (150-450) k/uL Lymphocytes # (Manual) 0.95 L (1.0-4.8) k/uL Potassium (3.5-5.5) mmol/L Chloride 112 H (96-109) mmol/L Carbon Dioxide 21.3 L (21.6-31.8) mmol/L BUN 7.0 L (9.0-27.0) mg/dL BUN/Creatinine Ratio 8.75 L (12.00-20.00) Ratio Calcium 7.8 L (8.7-10.3) mg/dL AST (14-35) U/L ALT 9 L (10-49) U/L Total Protein 4.6 L (6.2-8.2) g/dL Albumin 2.90 L (3.80-4.90) g/dL Globulin (1.6-3.3) g/dL Crossmatch Microbiology - Last 24 Hours (Table) 05/10/21 09:11 Stool Culture - Preliminary Stool 05/09/21 13:00 Blood Culture - Preliminary Blood No Growth after 72 hours 05/09/21 12:56 Blood Culture - Preliminary Blood No Growth after 72 hours Assessment and Plan (1) Non-Hodgkin lymphoma Current Visit: Yes Status: Acute Code(s): C85.90 - NON-HODGKIN LYMPHOMA, UNSPECIFIED, UNSPECIFIED SITE SNOMED Code(s): 015771552 (2) Anemia Current Visit: Yes Status: Acute Code(s): D64.9 - ANEMIA, UNSPECIFIED SNOMED Code(s): 714566988 (3) Colitis Current Visit: Yes Status: Acute Code(s): K52.9 - NONINFECTIVE GASTROENTERI TIS AND COLITIS, UNSPECIFIED SNOMED Code(s): 90407550 Plan: Assessment and Recommendations: Severe Colitis with possible Abscess: - Fevers have improved, pain is controlled on OPioid management - Add FLagyl in addition to Zosyn in immunocompromised patient on chemotherapy NHL: - Status Post Cycle one clinical Trial [facility] with Exp drug - DId receive Neulasta on 05/02 Status POst PRBC Transfusion on 05/12 Tolerating diet, afebrile and free of pain Ok with discharge today.
--- NOTE | 2021-05-13 14:34 | CT ---
EXAMINATION TYPE: CT abdomen pelvis w con DATE OF EXAM: 05/13/2021 COMPARISON: 05/09/2021 INDICATION: abdominal pain. hx of diverticulitis. currently being treated for lymphoma. DLP: 1313 mGycm, Automated exposure control for dose reduction was used. CONTRAST: 100 mL of Isovue 300. Study performed with Oral Contrast TECHNIQUE: Axial images were obtained from above the diaphragm to the pubic rami in the axial plane a t 5 mm thick sections. Reconstructed images are reviewed on the computer in the coronal plane. FINDINGS: Limited CT sections are obtained the lung bases. There is a 0.8 cm nodule within the posterior left lung base. This was present previously. Small bilateral pleural effusions are present. Lung bases oth erwise are clear. CT ABDOMEN: Liver: Normal Spleen: Normal Pancreas: Normal Adrenal glands: Larger of the adrenal glands with some adjacent inflammatory changes again evident. T his measures 4.0 x 2.9 cm on the right and 4.3 x 3.5 cm on the left. Gallbladder: Normal Kidneys: No masses are evident. No hydronephrosis is present. No cysts are present. Delayed images were obtained through the kidneys, which remain unremarkable. Aorta: Vascular calcification is within the aorta. Inferior vena cava: Normal. CT PELVIS: Inflammatory changes are adjacent to the sigmoid colon. Small curvilinear low density areas within th e anterior sigmoid wall may represent some underlying phlegmon or fluid. However, this area has signi ficantly improved over the interval and no definite abscess is identified. The wall remains thickened through this region. Obstruction however is not evident. Continued follow-up is recommended. No free air is adjacent. No increasing fluid collections to suggest abscess formation is identified. There a re loops of bowel which are incompletely distended or lack oral contrast limiting their evaluation. Appendix: Normal as visualized. Urinary bladder: Normal. Genitourinary structures: Prostate is slightly prominent Osseous structures: No suspicious lytic or sclerotic lesions. Degenerative changes are within the lef t femoral head. Lymphadenopathy: No suspicious enlarged lymph nodes are evident. IMPRESSIONS: 1. Inflammatory changes adjacent to the thickened sigmoid colon compatible with resolving acute dive rticulitis. Previous low density collection has diminished in size. No current abscess formation or f ree air is evident. Continued follow-up is recommended. 2. Enlarged adrenal glands. 3. Nodule posterior left lung base. 4. Small bilateral pleural effusions
[2021-05-13] MEDS: SODIUM CHLORIDE 0.9% 1,000 ML IV SCH (15:14)
--- NOTE | 2021-05-13 19:50 | P.DS ---
Providers Date of admission: 05/09/21 15:10 Expected date of discharge: 05/13/21 Attending physician: Camilo Juarez Consults: 05/09/21 15:10 Consult Physician Routine Consulting Provider: Trena Contreras Consult Reason/Comments: Abdominal pain, colitis, fever Do you want consulting provider notified?: Yes 05/09/21 18:28 Consult Physician Routine Consulting Provider: Bartolome Parham Consult Reason/Comments: chemo patient , b cell lymphoma Do you want consulting provider notified?: Already Contacted 05/10/21 13:30 Consult Physician Routine Consulting Provider: Sylvia Gtz Consult Reason/Comments: Severe COlitis, Poss Abscess, Immunocompromised on chemo Do you want consulting provider notified?: Yes Primary care physician: Camilo Juarez Hospital Course: 65-year-old male with past medical history of hypothyroidism, history of diverticulitis,history of lymphoma,history of cataracts was admitted to the hospital with diffuse abdominal pain. Patient had extensive diagnostic workup in emergency department revealing possible sigmoid colitis, anemia. Patient has been following hematology and oncology for chemotherapy for lymphoma treatment.During hospital stay patient tolerated empiric antibiotics for acute colitis and supportive therapy. During hospital patient stay, patient had decrease in hemoglobin and hematocrit required 2 units of packed red blood cells for acute on chronic anemia. Hemoglobin and hematocrit raised significantly after transfusion and after 24 hour duration no noted signs of bleedingAnd stable hemoglobin and hematocrit upon discharge. Patient had an additional CT abdomen and pelvis revealing resolving diverticulitis with no abscess noted. Patient will be discharged home with Augmentin and Flagyl with close follow-up with primary care, hematology oncology. - Constitutional General appearance: Present: cooperative - EENT Eyes: Present: EOMI, PERRLA, normal appearance ENT: Present: normal oropharynx Ears: bilateral: normal - Neck Neck: Present: normal ROM Carotids: bilateral: upstroke normal - Respiratory Respiratory: bilateral: CTA (Anterior and posterior lung pelayo) - Cardiovascular Heart rate: 74 Rhythm: regular Heart sounds: normal: S1, S2 - Peripheral pulses radial pulse Peripheral Pulses: bilateral: Normal dorsalis pedis Peripheral Pulses: bilateral: Normal - Gastrointestinal General gastrointestinal: Present: Soft nontender and normal active in all quadrants - Integumentary Integumentary: Present: Normal, well perfused - Neurologic Neurologic: Present: CNII-XII intact - Musculoskeletal Musculoskeletal: Present: Strength 5 out of 5 in all extremities - Psychiatric Psychiatric: Present: A&O x's 3, appropriate affect, intact judgment & insight Assessment: acute abdominal pain with possible acute sigmoid colitis, Resolving with supportive care and antibiotic therapy history of B-cell lymphoma chemotherapy, Continue to follow hematology oncology for treatment anemia, normocytic secondary to malignancy, Normalize hemoglobin for patient after 2 units of packed red blood cells hyponatremia, Resolved intractable painCome resolved with analgesics hypothyroidism history of diverticulitis history of cataracts remote history of EtOH abuse remote history of nicotine abuse full code Health Concerns: Multiple comorbidities complexity of B-cell lymphoma and treatment plan Pertinent Studies: CT abdomen pelvis on admission and on discharge with resolving acute colitis and diverticulitis, chronic changes related to patients comorbidities Chest x-ray KUB x-ray Procedures: None performed during hospital stay Patient Condition at Discharge: Fair Plan - Discharge Summary Discharge Rx Participant: Yes New Discharge Prescriptions: New metroNIDAZOLE [Flagyl] 500 mg PO Q8HR 7 Days #21 tab Amoxicillin/Potassium Clav [Augmentin 875-125 Tablet] 1 tab PO Q12HR 7 Days #14 tab Continue Levothyroxine Sodium [Synthroid] 200 mcg PO DAILY Docusate [Colace] 100 mg PO DAILY Acyclovir [Zovirax] 400 mg PO BID Prochlorperazine [Compazine] 5 mg PO BID Allopurinol [Zyloprim] 300 mg PO DAILY Lactulose 10 gm PO DAILY PRN PRN Reason: Constipation Zolpidem Tartrate [Ambien Cr] 12.5 mg PO HS Atorvastatin Calcium [Lipitor] 10 mg PO DAILY Sennosides [Senna] 17.2 mg PO DAILY Pantoprazole Sodium [Protonix] 40 mg PO DAILY Ondansetron HCl [Zofran] 4 mg PO TID Discharge Medication List Atorvastatin Calcium [Lipitor] 10 mg PO DAILY 04/10/21 [History] Levothyroxine Sodium [Synthroid] 200 mcg PO DAILY 04/10/21 [History] Zolpidem Tartrate [Ambien Cr] 12.5 mg PO HS 04/10/21 [History] Acyclovir [Zovirax] 400 mg PO BID 05/09/21 [History] Allopurinol [Zyloprim] 300 mg PO DAILY 05/09/21 [History] Docusate [Colace] 100 mg PO DAILY 05/09/21 [History] Lactulose 10 gm PO DAILY PRN 05/09/21 [History] Ondansetron HCl [Zofran] 4 mg PO TID 05/09/21 [History] Pantoprazole Sodium [Protonix] 40 mg PO DAILY 05/09/21 [History] Prochlorperazine [Compazine] 5 mg PO BID 05/09/21 [History] Sennosides [Senna] 17.2 mg PO DAILY 05/09/21 [History] Amoxicillin/Potassium Clav [Augmentin 875-125 Tablet] 1 tab PO Q12HR 7 Days #14 tab 05/13/21 [Rx] metroNIDAZOLE [Flagyl] 500 mg PO Q8HR 7 Days #21 tab 05/13/21 [Rx] Follow up Appointment(s)/Referral(s): Camilo Juarez MD [Primary Care Provider] - 05/20/21 1:00 pm Sylvia Gtz MD [STAFF PHYSICIAN] - 05/18/21 2:00 pm Patient Instructions/Handouts: Metronidazole (By mouth), Amoxicillin/Clavulanate Potassium (By mouth), Acute Diarrhea (ED), Anemia (DC), Colitis (ED) Discharge Disposition: HOME SELF-CARE
[2021-05-14] MEDS ORDERED: metroNIDAZOLE 500 MG TAB PO SCH
== END 2021-05-13 16:23 | disposition home or self-care (01) | DRG 392 ==
LOC: EC 11:52 → 4SSUR 15:10 → 5NMEDONC 16:00
PROVIDERS: ADMIT Family Medicine; ATTEND Family Medicine
PROC: 30233N1 Transfusion of Nonautologous Red Blood Cells into Peripheral Vein, Percutaneous Approach (ICD-10-PCS; principal; 2021-05-12)
DX: K52.9 Noninfective gastroenteritis and colitis, unspecified (principal); K57.92 Diverticulitis of intestine, part unspecified, without perforation or abscess without bleeding; E87.1 Hypo-osmolality and hyponatremia; C91.00 Acute lymphoblastic leukemia not having achieved remission; C85.10 Unspecified B-cell lymphoma, unspecified site; Z79.890 Hormone replacement therapy; E03.9 Hypothyroidism, unspecified; Z92.21 Personal history of antineoplastic chemotherapy; Z80.0 Family history of malignant neoplasm of digestive organs; Z87.891 Personal history of nicotine dependence; D63.0 Anemia in neoplastic disease; Z20.822 Contact with and (suspected) exposure to COVID-19
CPT/HCPCS: 36415; 71046; 74019; 74177; 80053; 81003; 82150; 82550; 82607; 82728; 83540; 83550; 83605; 83615; 83630; 83690; 83735; 84100; 84484; 84550; 85025; 85027; 85610; 85730; 86850; 86900; 86901; 86920; 87040; 87045; 87046; 87086; 87324; 87635; 96361; 96374; 99285

== ENCOUNTER → 2023-02-26 | Outpatient (CLI) | payer BC ==
--- NOTE | 2023-02-26 12:51 | XR ---
EXAMINATION TYPE: XR abdomen 2V DATE OF EXAM: 02/26/2023 COMPARISON: 05/11/2021 HISTORY: Pain TECHNIQUE: One view abdominal series FINDINGS: The osseous structures are intact. The bowel gas pattern is nonspecific. No suspicious calcification s. Calcification the pelvis stable from prior exam and likely related to vascular phleboliths. Mild h ypertrophic arthropathy of the hip joints. Hypertrophic changes of the spine. IMPRESSION: 1. Nonspecific abdomen.
--- NOTE | 2023-02-28 10:11 | XR ---
EXAMINATION TYPE: XR abdomen acute w cxr DATE OF EXAM: 02/28/2023 COMPARISON: 03/25/2021 HISTORY: Abdomen pain, loss of appetite. TECHNIQUE: Acute abdominal series is performed with an upright and supine view of the abdomen and sup plemented with a frontal chest FINDINGS: Heart size is normal. Pulmonary vasculature is normal. Lungs are clear. No free air is under the diap hragm. Normal colonic bowel gas is present. No suspicious air-fluid levels or differential air-fluid levels are present. No mass effect is evident. Psoas margins are normal. Organomegaly is not present. Suspic ious calcifications are not evident. Phleboliths within the left hemipelvis. IMPRESSION: 1. No suspicious acute abdominal series changes.
== END | disposition home or self-care (01) ==
LOC: RADXRMAIN 08:01
PROVIDERS: ATTEND Family Medicine
DX: R10.9 Unspecified abdominal pain (principal)
CPT/HCPCS: 71045; 74019; 74022

== ENCOUNTER 2023-07-04 13:11 | Observation (INO) | payer BC ==
[2023-07-04] MEDS ORDERED: IPRATROPIUM-ALBUTEROL 3 ML NEB INHALATION STA (13:16)
[2023-07-04] MEDS ORDERED: SODIUM CHLORIDE 0.9% 1,000 ML IV STA ×2 (13:16→14:24)
[2023-07-04] MEDS ORDERED: FAMOTIDINE 20 MG/2 ML VIAL IV STA (13:17)
[2023-07-04] MEDS ORDERED: DIPH,PERTUS(ACELL)TETVAC-LF 0.5 ML VIAL IM ONE (13:17)
[2023-07-04] MEDS ORDERED: ONDANSETRON 4 MG/2 ML VIAL IVP STA (13:20)
--- NOTE | 2023-07-04 13:43 | XR ---
EXAMINATION TYPE: XR chest 1V portable DATE OF EXAM: 07/04/2023 COMPARISON: 05/09/2021. HISTORY: Bee sting with allergic reaction. TECHNIQUE: Single frontal view of the chest is obtained. FINDINGS: There is no focal air space opacity, pleural effusion, or pneumothorax seen. The cardiac silhouette size is within normal limits. The osseous structures are intact. IMPRESSION: No acute process.
--- NOTE | 2023-07-04 14:04 | ED ---
General Adult HPI - General Chief complaint: Allergic Reaction Stated complaint: Bee Sting, Allergic Reaction Time Seen by Provider: 07/04/23 13:19 Source: patient, EMS, RN notes reviewed, old records reviewed Mode of arrival: EMS Limitations: no limitations - History of Present Illness Initial comments: Patient is a 67-year-old male with known history of bee sting ALLERGIES presents emergency department for anaphylaxis with bee sting. Patient was stung in the distal left leg. States that after starting approximately one hour ago he began having difficulty in breathing. [place] mildly nauseous as well. [place] like he was having a hard time swallowing his spit. He was given one epinephrine IM injection by fire and then additional epinephrine injection by EMS. EMS also provided 50 mg of Benadryl, 125 mg of Solu-Medrol. This gentleman on a sj thing treatment. Patient presents following these medications. Initial sting occurred 1 hour ago. States he is feeling improved. Denies any other complaints at this time including chest pain, abdominal pain, fevers. Doesn't history of alcohol abuse but never expense alcohol withdrawals. Last drink was approximately 2 hours prior to arrival when he had a beer. Presents for further evaluation at this time. States he did have an EpiPen previously but has been without 1 for multiple years. Did have a severe reaction to bee sting approximately 10 years ago per patient. Unknown last tetanus vaccine. - Related Data Home Medications Medication Instructions Recorded Confirmed Atorvastatin Calcium [Lipitor] 10 mg PO DAILY 04/10/21 07/04/23 Zolpidem Tartrate [Ambien Cr] 12.5 mg PO HS 04/10/21 07/04/23 Celecoxib [CeleBREX] 200 mg PO DAILY 07/04/23 07/04/23 Cholecalciferol [Vitamin D3 (10 10 mcg PO DAILY 07/04/23 07/04/23 Mcg = 400 Iu)] Cyanocobalamin (Vitamin B-12) 1,000 mcg PO DAILY 07/04/23 07/04/23 [Vitamin B-12] Dicyclomine [Bentyl] 10 mg PO TID 07/04/23 07/04/23 Levothyroxine Sodium 137 mcg PO DAILY 07/04/23 07/04/23 Multivitamins, Thera [Multivitamin 1 tab PO DAILY 07/04/23 07/04/23 (formulary)] Vitamin B Complex 1 cap PO DAILY 07/04/23 07/04/23 diphenhydrAMINE HCL [Benadryl] 25 mg PO HS PRN 07/04/23 07/04/23 Allergies Allergy/AdvReac Type Severity Reaction Status Date / Time bee venom protein (honey bee) Allergy Anaphylaxis Verified 07/04/23 15:24 Review of Systems ROS Statement: Those systems with pertinent positive or pertinent negative responses have been documented in the HPI. Review of Systems: CONST: Denies fever EYES: Denies blurry vision ENT: Denies nasal congestion C/V: Denies Chest pain RESP: Denies shortness of breath GI: Denies abdominal pain : Denies dysuria SKIN: Endorses bee sting MSK: Denies joint pain. NEURO: Denies headache ROS Other: All systems not noted in ROS Statement are negative. Past Medical History Past Medical History: Cancer, Thyroid Disorder Additional Past Medical History / Comment(s): neck pain. Diverticulitis. lymphoma with current chemo and clinical trail chemo History of Any Multi-Drug Resistant Organisms: None Reported Past Surgical History: Unable to Obtain Additional Past Surgical History / Comment(s): Cataracts. Sinus sx Past Anesthesia/Blood Transfusion Reactions: No Reported Reaction Past Psychological History: No Psychological Hx Reported Smoking Status: Former smoker Past Alcohol Use History: Abuse, Daily, Heavy Past Drug Use History: None Reported - Past Family History Father Family Medical History: Cancer Additional Family Medical History / Comment(s): colon cancer Mother Family Medical History: Cancer Additional Family Medical History / Comment(s): Ovarian Cancer General Exam - General Exam Comments Initial Comments: General: Appears in mild acute distress. HEAD: Normal with no signs of head trauma. EYES: PERRLA, EOMI, conjunctiva normal, no discharge. ENT: Hearing grossly intact, normal oropharynx. Uvula is midline. Tongue is not edematous. No stridor. No posterior oropharyngeal swelling. RESPIRATORY: Clear breath sounds bilaterally. No wheezes, rales, or rhonchi. Minimal increased work of breathing. Patient currently on nasal cannula oxygen and we will arrange. C/V: Regular rate and rhythm. S1 and S2 auscultated, no edema, peripheral pulses 2+ and intact throughout ABD: Abd is soft, nontender, nondistended EXT: Normal range of motion, no obvious deformity SKIN: No rashes or lesions observed on exposed skin. NEURO: Alert and oriented 4. No focal deficits. Patient is tremulous, following second epinephrine administration. Limitations: no limitations Course Vital Signs 07/04/23 07/04/23 07/04/23 13:12 13:35 13:56 Temperature 97.7 F Pulse Rate 93 84 86 Respiratory 20 18 Rate Blood Pressure 125/96 127/77 O2 Sat by Pulse 97 99 Oximetry 07/04/23 14:08 Temperature Pulse Rate 87 Respiratory Rate Blood Pressure O2 Sat by Pulse Oximetry Medical Decision Making - Medical Decision Making Was pt. sent in by a medical professional or institution (, RUIZ, ABSENCE MANAGEMENT CONSULTANT, urgent care, hospital, or senior care...) When possible be specific @ -No Did you speak to anyone other than the patient for history (EMS, parent, family, police, friend...)? What history was obtained from this source @ -No Did you review nursing and triage notes (agree or disagree)? Why? @ -I reviewed and agree with nursing and triage notes Were old charts reviewed (outside hosp., previous admission, EMS record, old EKG, old radiological studies, urgent care reports/EKG's, senior care records)? Report findings @ -No old charts were reviewed Differential Diagnosis (chest pain, altered mental status, abdominal pain women, abdominal pain men, vaginal bleeding, weakness, fever, dyspnea, syncope, headache, dizziness, GI bleed, back pain, seizure, CVA, palpatations, mental health, musculoskeletal)? @ -Anaphylaxis, ALLERGIC reaction, alcohol intoxication, infection, bee stings, this list is not all-inclusive. EKG interpreted by me (3pts min.). @ -As above X-rays interpreted by me (1pt min.). @ -Chest x-ray shows no obvious acute cardiopulmonary process. CT interpreted by me (1pt min.). @ -None done U/S interpreted by me (1pt. min.). @ -None done What testing was considered but not performed or refused? (CT, X-rays, U/S, labs)? Why? @ -None What meds were considered but not given or refused? Why? @ -None Did you discuss the management of the patient with other professionals (professionals i.e. , RUIZ, ABSENCE MANAGEMENT CONSULTANT, lab, RT, psych nurse, social worker clinical, contact lens blocker and cutter, teacher, security officer, ed case manager)? Give summary @ -No Was smoking cessation discussed for >3mins.? @ -No Was critical care preformed (if so, how long)? @ -Yes, 38 minutes. Were there social determinants of health that impacted care today? How? (Homelessness, low income, unemployed, alcoholism, drug addiction, transporta tion, low edu. Level, literacy, decrease access to med. care, [facility], rehab)? @ -No Was there de-escalation of care discussed even if they declined (Discuss DNR or withdrawal of care, Hospice)? DNR status @ -No What co-morbidities impacted this encounter? (DM, HTN, Smoking, COPD, CAD, Cancer, CVA, ARF, Chemo, Hep., AIDS, mental health diagnosis, sleep apnea, morbid obesity)? @ -Prior anaphylactic reaction to bee stings. Was patient admitted / discharged? Hospital course, mention meds given and route, prescriptions, significant lab abnormalities, going to OR and other pertinent info. @ -Based on the patient's presentation and physical exam, I'm concerned for an anaphylactic reaction to bee stings. Has already been administered 2 doses of IM epinephrine which seems to be improving his symptoms. He is mildly agitated at this time but feeling improved overall. Exam is relatively unremarkable other than this agitation which could be secondary to the epinephrine injections. He is already received anaphylaxis cocktail consisting of steroids as he received IM Solu-Medrol, IM Benadryl, as well as an EpiPen. We will complete a cocktail with IV fluids as well as IV famotidine. He'll also be given IV Zofran as he did feel nauseous earlier. We'll obtain basic workup. He'll be observed and we'll wean him off oxygen. He was in agreement this plan. Vital signs otherwise within acceptable limits at this time. Patient was placed in trauma bay 2 upon arrival. EKG shows no obvious acute ischemia. Chest x-ray shows no obvious acute process. Patient's labs remarkable for a hypokalemia of 2.8 likely secondary to a lactic acidosis of 8.0. I do suspect this lactic acidosis is from a mixture dehydration, epinephrine administration, as well as his shaking. Cannot rule out alcoholic ketoacidosis at this time. Alcohol level was 17. We will adminis ter additional IV fluid boluses and repeat the lab. I do not believe it is infectious at this time. On evaluation, patient is off oxygen. During improved. We discuss his labs. As he has lactic acidosis of 8.0 as well as require repeat epinephrine administrations in the field we will admit the patient for further observation. He was in agreement this plan. Patient was given potassium supplementation. I spoke with the admitting physician, Dr. Ellison who accepted the patient was in agreement with the plan. CIWA protocol was ordered as the patient does drink alcohol on a daily basis but no known history of alcohol withdrawals. Undiagnosed new problem with uncertain prognosis? @ -No Drug Therapy requiring intensive monitoring for toxicity (Heparin, Nitro, Insulin, Cardizem)? @ -No Were any procedures done? @ -No Diagnosis/symptom? @ -ALLERGIC reaction, anaphylaxis, hypokalemia, lactic acidosis, alcohol use history Acute, or Chronic, or Acute on Chronic? @ -Acute Uncomplicated (without systemic symptoms) or Complicated (systemic symptoms)? @ -Complicated Side effects of treatment? @ -none Exacerbation, Progression, or Severe Exacerbation] @ -no Poses a threat to life or bodily function? @ -yes - Lab Data Result diagrams: 07/04/23 13:32 07/04/23 13:32 Lab Results 07/04/23 07/04/23 07/04/23 Range/Units 13:32 13:32 13:32 WBC 8.7 (3.8-10.6) k/uL RBC 3.87 L (4.30-5.90) m/uL Hgb 13.6 (13.0-17.5) gm/dL Hct 40.7 (39.0-53.0) % MCV 105.0 H (80.0-100.0) fL MCH 35.2 H (25.0-35.0) pg MCHC 33.5 (31.0-37.0) g/dL RDW 13.3 (11.5-15.5) % Plt Count 199 (150-450) k/uL MPV 8.3 Neutrophils % (Manual) 38 % Lymphocytes % (Manual) 51 % Monocytes % (Manual) 10 % Eosinophils % (Manual) 1 % Metamyelocytes % 1 % Myelocytes % 1 % Neutrophils # (Manual) 3.31 (1.3-7.7) k/uL Lymphocytes # (Manual) 4.44 (1.0-4.8) k/uL Monocytes # (Manual) 0.87 (0-1.0) k/uL Eosinophils # (Manual) 0.09 (0-0.7) k/uL Metamyelocytes # (Man) 0.09 H (0) k/uL Myelocytes # (Manual) 0.09 H (0) k/uL Nucleated RBCs 0 (0-0) /100 WBC Manual Slide Review Performed Reactive Lymphocytes Present Macrocytosis Slight Sodium 139 (137-145) mmol/L Potassium 2.8 L (3.5-5.1) mmol/L Chloride 108 H (98-107) mmol/L Carbon Dioxide 14 L (22-30) mmol/L Anion Gap 17 mmol/L BUN 21 H (9-20) mg/dL Creatinine 1.27 H (0.66-1.25) mg/dL Est GFR (CKD-EPI)AfAm 68 (>60 ml/min/1.73 sqM) Est GFR (CKD-EPI)NonAf 59 (>60 ml/min/1.73 sqM) Glucose 121 H (74-99) mg/dL Lactic Ac Sepsis Rflx Plasma Lactic Acid Ryan 8.0 H* (0.7-2.0) mmol/L Calcium 8.5 (8.4-10.2) mg/dL Magnesium 1.8 (1.6-2.3) mg/dL Total Bilirubin 0.7 (0.2-1.3) mg/dL AST 33 (17-59) U/L ALT 22 (4-49) U/L Alkaline Phosphatase 58 (38-126) U/L Total Protein 6.4 (6.3-8.2) g/dL Albumin 4.0 (3.5-5.0) g/dL Serum Alcohol 17 mg/dL 07/04/23 Range/Units 14:22 WBC (3.8-10.6) k/uL RBC (4.30-5.90) m/uL Hgb (13.0-17.5) gm/dL Hct (39.0-53.0) % MCV (80.0-100.0) fL MCH (25.0-35.0) pg MCHC (31.0-37.0) g/dL RDW (11.5-15.5) % Plt Count (150-450) k/uL MPV Neutrophils % (Manual) % Lymphocytes % (Manual) % Monocytes % (Manual) % Eosinophils % (Manual) % Metamyelocytes % % Myelocytes % % Neutrophils # (Manual) (1.3-7.7) k/uL Lymphocytes # (Manual) (1.0-4.8) k/uL Monocytes # (Manual) (0-1.0) k/uL Eosinophils # (Manual) (0-0.7) k/uL Metamyelocytes # (Man) (0) k/uL Myelocytes # (Manual) (0) k/uL Nucleated RBCs (0-0) /100 WBC Manual Slide Review Reactive Lymphocytes Macrocytosis Sodium (137-145) mmol/L Potassium (3.5-5.1) mmol/L Chloride (98-107) mmol/L Carbon Dioxide (22-30) mmol/L Anion Gap mmol/L BUN (9-20) mg/dL Creatinine (0.66-1.25) mg/dL Est GFR (CKD-EPI)AfAm (>60 ml/min/1.73 sqM) Est GFR (CKD-EPI)NonAf (>60 ml/min/1.73 sqM) Glucose (74-99) mg/dL Lactic Ac Sepsis Rflx Y Plasma Lactic Acid Ryan (0.7-2.0) mmol/L Calcium (8.4-10.2) mg/dL Magnesium (1.6-2.3) mg/dL Total Bilirubin (0.2-1.3) mg/dL AST (17-59) U/L ALT (4-49) U/L Alkaline Phosphatase (38-126) U/L Total Protein (6.3-8.2) g/dL Albumin (3.5-5.0) g/dL Serum Alcohol mg/dL - EKG Data -: EKG Interpreted by Me EKG Comments: 12-lead Electrocardiogram Interpretation Note EKG was reviewed and interpreted by myself. 12-lead ECG performed at 1335 is interpreted by me as revealing normal sinus rhythm at a rate of 87 beats per minute. [place] is normal.. Intervals 156 ms, QRS duration is 94 ms, QTc is 433 ms.. There were no ST or T wave abnormalities to suggest myocardial ischemia or injury. R wave progression across the precordium was satisfactory. By my interpretation this EKG is non-diagnostic for acute ischemia. Critical Care Time Critical Care Time: Yes Total Critical Care Time: 38 Disposition Clinical Impression: Allergic reaction, Allergic reaction to insect sting, Anaphylaxis, Alcohol abuse, Hypokalemia, Lactic acidosis Disposition: ADMITTED IP TO THIS HOSP Condition: Serious Time of Disposition: 14:38
[2023-07-04 14:12] LABS: ALT 22 U/L (4-49); AST 33 U/L (17-59); African American GFR (CKD) 68 (>60 ml/min/1.73 sqM); Alcohol 17 mg/dL; Alkaline Phosphatase 58 U/L (38-126); Anion Gap 17 mmol/L; Blood Urea Nitrogen 21 mg/dL (9-20); Calcium 8.5 mg/dL (8.4-10.2); Carbon Dioxide 14 mmol/L (22-30); Chloride 108 mmol/L (98-107); Glucose 121 mg/dL (74-99); Magnesium 1.8 mg/dL (1.6-2.3); Non-African American GFR(CKD) 59 (>60 ml/min/1.73 sqM); Potassium 2.8 mmol/L (3.5-5.1); Sodium 139 mmol/L (137-145); Total Bilirubin 0.7 mg/dL (0.2-1.3); Total Protein 6.4 g/dL (6.3-8.2)
[2023-07-04] MEDS ORDERED: LORazepam 2 MG/ML INJ IV PRN ×2 (14:24)
[2023-07-04] MEDS ORDERED: THIAMINE 100 MG/ML 2 ML VIAL IM STA (14:24)
[2023-07-04] MEDS ORDERED: POTASSIUM CHLORIDE ER 20 MEQ TAB.ER PO STA (14:25)
[2023-07-04 14:30] LABS: HCT 40.7 % (39.0-53.0); HGB 13.6 gm/dL (13.0-17.5); MCH 35.2 pg (25.0-35.0); MCHC 33.5 g/dL (31.0-37.0); Macrocytosis Slight; Mean Platelet Volume 8.3; Platelet Count 199 k/uL (150-450); RBC 3.87 m/uL (4.30-5.90); RDW 13.3 % (11.5-15.5); WBC 8.7 k/uL (3.8-10.6)
[2023-07-04] MEDS ORDERED: NALOXONE 0.4 MG/ML 1 ML VIAL IV PRN (14:50)
[2023-07-04] MEDS ORDERED: ACETAMINOPHEN TAB 325 MG TAB PO PRN (14:50)
[2023-07-04 15:52] LABS: Eosinophils # (M) 0.09 k/uL (0-0.7); Lymphocytes # (M) 4.44 k/uL (1.0-4.8); Metamyelocytes # (M) 0.09 k/uL (0); Metamyelocytes % 1 %; Monocytes # (M) 0.87 k/uL (0-1.0); Myelocytes # (M) 0.09 k/uL (0); Myelocytes % 1 %; Neutrophils # (M) 3.31 k/uL (1.3-7.7); Neutrophils % (M) 38 %; Nucleated Red Blood Cells 0 /100 WBC (0-0); Total Cells Counted 200
[2023-07-04 15:54] LABS: Reactive Lymphocytes Present
[2023-07-04] MEDS: SODIUM CHLORIDE 0.9% 1,000 ML IV SCH (17:14)
[2023-07-04] MEDS ORDERED: Magnesium Replacement Protocol 1 EACH MISC MISCELLANE PRN (18:38)
[2023-07-04] MEDS ORDERED: Potassium Replacement Protocol 1 EACH MISC MISCELLANE PRN (18:38)
[2023-07-04] MEDS ORDERED: MAGNESIUM SULFATE-D5W PMX 1 GM in DEXTROSE/WATER 1 100ML.BAG IVPB ONE (18:38)
[2023-07-04] MEDS ORDERED: ONDANSETRON 4 MG/2 ML VIAL IVP PRN (18:40)
[2023-07-04] MEDS ORDERED: diphenhydrAMINE 25 MG CAP PO PRN (18:40)
[2023-07-04] MEDS ORDERED: METOCLOPRAMIDE 5 MG/ML 2 ML VIAL IVP PRN (18:40)
[2023-07-04] MEDS: DEXAMETHASONE SOD PHOSPHATE 4 MG/ML 1 ML VIAL IVP SCH (18:58)
[2023-07-04] MEDS: POTASSIUM CHLORIDE ER 20 MEQ TAB.ER PO SCH ×4 (18:58→23:00)
[2023-07-04] MEDS ORDERED: DEXAMETHASONE SOD PHOSPHATE 4 MG/ML 1 ML VIAL IVP SCH (20:00)
[2023-07-04] MEDS ORDERED: ZOLPIDEM 5 MG TAB PO SCH (21:00)
[2023-07-04] MEDS: DICYCLOMINE 10 MG CAP PO SCH (21:44)
[2023-07-04] MEDS: FAMOTIDINE 20 MG TAB PO SCH (21:53)
--- NOTE | 2023-07-04 22:11 | P.HPIM ---
History of Present Illness H&P Date: 07/04/23 Chief Complaint: Anaphylactic reaction/ bee sting Patient is a 7-year-old male with a known history of non-Hodgkin's lymphoma s/p chemotherapy and was on trial chemo, off for the past 6 months, hypothyroidism, prior history of smoking and daily heavy alcohol use was brought to ER due to anaphylactic reaction followed by Bee sting. Patient states her he was stung by 6-8 bees at the time for his left lower extremity below the calf region. Within 20 minutes patient started having difficulty in breathing and felt very nauseous. Patient was about to pass out. He called his and who informed EMS. Patient was given IM epinephrine by fire department and additional e pinephrine by EMS. Patient was given also given Benadryl and also Solu-Medrol IV 125 mg x 1. Was also given a breathing treatment. Bee sting occurred about 1 hour prior to hospital arrival. Currently patient states that she feels cold and is tremulous. Provided warm blankets. Otherwise patient denies any complaints of fever or chills. No complaints of chest pain or shortness of breath. No nausea vomiting or abdominal pain or diarrhea. Denies any recent illnesses. Patient does drink on a daily basis and never had any alcohol withdrawal symptoms. Last drink was about 2 hours prior to arrival to the hospital and had a beer. Patient states that he was given EpiPen previously apparently has not been carrying recently. Last bee sting was about about 10 years ago. On admission chest x-ray showed no acute process. EKG showed sinus rhythm with left axis deviation. Laboratory data showed WBC 8.7 hemoglobin 13.6 MCV 105.0 and platelets 199 Sodium 139 potassium 2.8 chloride 108 bicarb is 14 BUN 21 and creatinine 1.27 lactic acid 8.0, magnesium 1.8 and liver injection not elevated. Serum alcohol level is 17. Review of Systems Constitutional: Patient denies any fever or chills . no Generalized weakness. Abdomen: Patient denied any nausea or vomiting or abd. pain Cardiovascular: Patient denies any chest pain or short of breath no palpitations. Respiratory: patient denied any cough . no sputum production. No shortness of breath Neurologic: Patient denied any numbness or tingling headache. Musculoskeletal: Patient denies any complaints of joint swelling or deformity. Skin: Negative Psychiatric: Negative Endocrine: No heat or cold intolerance. No recent weight gain. Genitourinary: No dysuria or hematuria. All other 14 point ROS negative except the above Past Medical History Past Medical History: Cancer, Thyroid Disorder Additional Past Medical History / Comment(s): neck pain. Diverticulitis. lymphoma with current chemo and clinical trail chemo History of Any Multi-Drug Resistant Organisms: None Reported Past Surgical History: Unable to Obtain Additional Past Surgical History / Comment(s): Cataracts. Sinus sx Past Anesthesia/Blood Transfusion Reactions: No Reported Reaction Past Psychological History: No Psychological Hx Reported Smoking Status: Former smoker Past Alcohol Use History: Abuse, Daily, Heavy Past Drug Use History: None Reported - Past Family History Father Family Medical History: Cancer Additional Family Medical History / Comment(s): colon cancer Mother Family Medical History: Cancer Additional Family Medical History / Comment(s): Ovarian Cancer Medications and Allergies Home Medications Medication Instructions Recorded Confirmed Type Atorvastatin Calcium [Lipitor] 10 mg PO DAILY 04/10/21 07/04/23 History Zolpidem Tartrate [Ambien Cr] 12.5 mg PO HS 04/10/21 07/04/23 History Celecoxib [CeleBREX] 200 mg PO DAILY 07/04/23 07/04/23 History Cholecalciferol [Vitamin D3 (10 10 mcg PO DAILY 07/04/23 07/04/23 History Mcg = 400 Iu)] Cyanocobalamin (Vitamin B-12) 1,000 mcg PO DAILY 07/04/23 07/04/23 History [Vitamin B-12] Dicyclomine [Bentyl] 10 mg PO TID 07/04/23 07/04/23 History Levothyroxine Sodium 137 mcg PO DAILY 07/04/23 07/04/23 History Multivitamins, Thera [Multivitamin 1 tab PO DAILY 07/04/23 07/04/23 History (formulary)] Vitamin B Complex 1 cap PO DAILY 07/04/23 07/04/23 History diphenhydrAMINE HCL [Benadryl] 25 mg PO HS PRN 07/04/23 07/04/23 History Allergies Allergy/AdvReac Type Severity Reaction Status Date / Time bee venom protein (honey bee) Allergy Anaphylaxis Verified 07/04/23 15:24 Physical Exam Vitals: Vital Signs Temp Pulse Pulse Resp BP BP Pulse Ox 07/04/23 18:00 103 H 18 07/04/23 17:55 97.2 F L 103 H 18 98/64 97 07/04/23 14:08 87 07/04/23 13:56 86 07/04/23 13:35 84 18 127/77 99 07/04/23 13:12 97.7 F 93 20 125/96 97 Intake and Output 07/04/23 07/04/23 07/04/23 06:59 14:59 22:59 Other: # Voids 1 # Bowel Movements 1 Weight 86.183 kg 88.451 kg PHYSICAL EXAMINATION: Patient is lying in the bed comfortably, no acute distress, awake alert and oriented. Tremulous and shaky. HEENT: Normocephalic. Neck is supple. Pupils reactive. Nostrils clear. Oral cavity is moist. Neck reveals no JVD, carotid bruits, or thyromegaly. CHEST EXAMINATION: Trachea is central. Symmetrical expansion. Lung pelayo clear to auscultation and percussion. CARDIAC: Normal S1, S2 with no gallops. No murmurs ABDOMEN: Soft. Bowel sounds present. Nontender. No organomegaly. No abdominal bruits. Extremities: reveal no edema. No clubbing or cyanosis. Bee sting miramontes over the left lower extremity below the calf region. Neurologically awake, alert, oriented x3 with well-coordinated movements. No focal deficits noted Skin: No rash or skin lesions. Psychiatric: Coperative. Nonsuicidal, Musculoskeletal: No joint swelling or deformity. Normal range of motion. Results CBC & Chem 7: 07/04/23 13:32 07/04/23 21:37 Labs: Abnormal Lab Results - Last 24 Hours (Table) 07/04/23 07/04/23 07/04/23 Range/Units 13:32 13:32 13:32 RBC 3.87 L (4.30-5.90) m/uL MCV 105.0 H (80.0-100.0) fL MCH 35.2 H (25.0-35.0) pg Metamyelocytes # (Man) 0.09 H (0) k/uL Myelocytes # (Manual) 0.09 H (0) k/uL Potassium 2.8 L (3.5-5.1) mmol/L Chloride 108 H (98-107) mmol/L Carbon Dioxide 14 L (22-30) mmol/L BUN 21 H (9-20) mg/dL Creatinine 1.27 H (0.66-1.25) mg/dL Glucose 121 H (74-99) mg/dL Plasma Lactic Acid Ryan 8.0 H* (0.7-2.0) mmol/L Thrombosis Risk Factor Assmnt - DVT/VTE Prophylaxis DVT/VTE Prophylaxis: Pharmacologic Prophylaxis ordered - Choose All That Apply Each Risk Factor Represents 2 Points: Age 61-74 years Thrombosis Risk Factor Assessment Total Risk Factor Score: 2 Thrombosis Risk Factor Assessment Level: Low Risk Assessment and Plan Assessment: Acute anaphylactic reaction followed by bee sting 1 hour prior to ER arrival. Status post IM epinephrine x2 by fire department and also EMS. He was also given Benadryl and IV Solu-Medrol x1. Lactic acidosis 8.0 Severe hypokalemia 2.8 on admission Anion gap metabolic acidosis Daily alcohol use with the level 17 on admission Macrocytosis History of non-Hodgkin's lymphoma status post chemo and trial chemo last dose about 6 months ago Hypothyroidism Prior history of smoking DVT prophylaxis with heparin subcu Plan: Patient will be continued on IV hydration with normal saline and follow-up repe at lactic acid level. Continue with Decadron 4 mg IV every 6 hourly x1 day and continue with Pepcid. Monitor respiratory status closely. Continue with home medications including levothyroxine. Monitor for alcohol withdrawal symptoms. Continue to follow closely. Discussed with his at bedside in detail. Follow-up CBC and BMP tomorrow. Replace electrolytes and repeat potassium level. Time with Patient: Greater than 30
[2023-07-04 22:34] LABS: Appearance,Urine Clear (Clear); Bilirubin,Urine Negative (Negative); Blood,Urine Negative (Negative); Color,Urine Yellow; Glucose,Urine (UA) Negative (Negative); Ketones,Urine 2+ (Negative); Leukocyte Esterase,Urine Negative (Negative); Nitrite,Urine Negative (Negative); PH, Urine 5.5 (5.0-8.0); Protein,Urine Negative (Negative); Specific Gravity,Urine 1.024 (1.001-1.035); Urobilinogen,Urine <2.0 mg/dL (<2.0)
[2023-07-05] MEDS: POTASSIUM CHLORIDE ER 20 MEQ TAB.ER PO SCH (00:01)
[2023-07-05] MEDS: DEXAMETHASONE SOD PHOSPHATE 4 MG/ML 1 ML VIAL IVP SCH ×3 (00:07→11:15)
[2023-07-05] MEDS: LORazepam 2 MG/ML INJ IV PRN ×3 (00:07→02:56)
[2023-07-05] MEDS: SODIUM CHLORIDE 0.9% 1,000 ML IV SCH ×2 (02:57→06:18)
[2023-07-05 06:00] VITALS: RESP 14; TEMP 97.8
[2023-07-05] MEDS ORDERED: LEVOTHYROXINE 137 MCG TAB PO SCH (06:30)
[2023-07-05] MEDS: DICYCLOMINE 10 MG CAP PO SCH (08:50)
[2023-07-05] MEDS: FAMOTIDINE 20 MG TAB PO SCH (08:50)
[2023-07-05 08:56] VITALS: PULSE 75
[2023-07-05] MEDS ORDERED: NON FORMULARY DRUG (Vitamin B Complex [Vitamin B Complex] 1 EACH Capsule) PO SCH (09:00)
[2023-07-05] MEDS ORDERED: CYANOCOBALAMIN 500 MCG TAB PO SCH (09:00)
[2023-07-05] MEDS ORDERED: CHOLECALCIFEROL 10 MCG (400 IU) TABLET PO SCH (09:00)
[2023-07-05] MEDS ORDERED: THIAMINE 100 MG TAB PO SCH (09:00)
[2023-07-05] MEDS ORDERED: MULTIVITAMINS, THERA 1 EACH TAB PO SCH (09:00)
[2023-07-05] MEDS ORDERED: ATORVASTATIN 10 MG TAB PO SCH (09:00)
[2023-07-05] MEDS ORDERED: MELOXICAM 7.5 MG TAB PO SCH (09:00)
[2023-07-05 09:28] LABS: Basophils % (A) 0 %; Eosinophils % (A) 0 %; HCT 36.8 % (39.0-53.0); HGB 12.4 gm/dL (13.0-17.5); Lymphocytes # (A) 0.6 k/uL (1.0-4.8); Lymphocytes % (A) 5 %; MCH 35.4 pg (25.0-35.0); MCHC 33.6 g/dL (31.0-37.0); MCV 105.2 fL (80.0-100.0); Macrocytosis Slight; Monocytes # (A) 0.6 k/uL (0-1.0); Monocytes % (A) 5 %; Neutrophils # (A) 11.5 k/uL (1.3-7.7); Neutrophils % (A) 90 %; Platelet Count 175 k/uL (150-450); RDW 13.3 % (11.5-15.5); WBC 12.8 k/uL (3.8-10.6)
[2023-07-05 09:49] LABS: African American GFR (CKD) >90 (>60 ml/min/1.73 sqM); Anion Gap 7 mmol/L; Blood Urea Nitrogen 18 mg/dL (9-20); Calcium 8.1 mg/dL (8.4-10.2); Carbon Dioxide 18 mmol/L (22-30); Chloride 111 mmol/L (98-107); Glucose 154 mg/dL (74-99); Non-African American GFR(CKD) 87 (>60 ml/min/1.73 sqM); Potassium 4.8 mmol/L (3.5-5.1); Sodium 136 mmol/L (137-145)
[2023-07-05 11:22] VITALS: BP 109/55
--- NOTE | 2023-07-06 15:54 | P.DS ---
Providers Date of admission: 07/04/23 14:51 Expected date of discharge: 07/05/23 Attending physician: Avila Ellison Primary care physician: Camilo Juarez Hospital Course: Final diagnosis Acute anaphylactic reaction followed by bee sting 1 hour prior to ER arrival. Status post IM epinephrine x2 by fire department and also EMS. He was also given Benadryl and IV Solu-Medrol x1. Lactic acidosis 8.0, secondary to above, resolved Severe hypokalemia 2.8 on admission, improved Anion gap metabolic acidosis, resolved Daily alcohol use with alcohol level 17 on admission Macrocytosis History of non-Hodgkin's lymphoma status post chemo and trial chemo last dose about 6 months ago Hypothyroidism Prior history of smoking DVT prophylaxis Discharge disposition Patient is being discharged in a stable condition with guarded prognosis to home. Patient will follow-up with Dr. Juarez in the outpatient setting upon discharge. Patient is to continue with Medrol Dosepak and was also provided a prescription for an EpiPen Total time taken is greater than 35 minutes. Hospital course This is a 67-year-old male who was recently admitted with an acute anaphylactic reaction requiring EpiPen administration 3 status post bee sting. Patient was also given steroids along with Benadryl and monitored overnight reports to feeling well and would like to go home. Patient was continued on steroids and reports feeling significantly improved and would like to go home. Patient will be continued on a Medrol Dosepak and was provided prescription for EpiPen and instructed to follow-up with primary care provider. Family member at bedside r eports a follow-up appointment is scheduled with Dr. Juarez for this week. Currently no reports of chest pain, shortness of breath, or palpitations. Patient is afebrile. No reports of nausea or vomiting and patient is tolerating diet. Patient will be discharged home today. Physical exam: Gen: This is a 67-year-old male who is awake, alert and oriented 3, well- developed, well-nourished HEENT: Head is atraumatic, normocephalic. Pupils equal, round. Sclerae is anicteric. NECK: Supple. No JVD. No lymphadenopathy. No thyromegaly. LUNGS: Clear to auscultation. No wheezes or rhonchi. No intercostal retractions. HEART: Regular rate and rhythm. No murmur. ABDOMEN: Soft. Bowel sounds are present. No masses. No tenderness. EXTREMITIES: No pedal edema. No calf tenderness. NEUROLOGICAL: Patient is awake, alert and oriented x3. Cranial nerves 2 through 12 are grossly intact. Please refer to medication reconciliation sheet for a list of medications. The impression and plan of care has been dictated by Jailene Marroquin, Nurse Practitioner as directed. Dr. Terra MD I have performed a history and examination and MDM of this patient, discussed the same with the dictator, and agree with the dictator's assessment and plan as written ,documented as a scribe. Based on total visit time, I have performed more than 50% of the visit. Patient Condition at Discharge: Stable Plan - Discharge Summary Discharge Rx Participant: Yes New Discharge Prescriptions: New EPINEPHrine (Auto Inject) [Epipen] 0.3 mg IM ONCE PRN #1 each PRN Reason: Anaphylaxis methylPREDNISolone Dose Pack [Medrol Dose Pack] 4 mg PO DIRECTED #21 tab Acetaminophen Tab [Tylenol] 650 mg PO Q6HR PRN tab PRN Reason: Mild Pain Or Fever > 100.5 Thiamine [Vitamin B-1] 100 mg PO DAILY #30 tab Continue Cholecalciferol [Vitamin D3 (10 Mcg = 400 Iu)] 10 mcg PO DAILY diphenhydrAMINE HCL [Benadryl] 25 mg PO HS PRN PRN Reason: Insomnia Vitamin B Complex 1 cap PO DAILY Zolpidem Tartrate [Ambien Cr] 12.5 mg PO HS Atorvastatin Calcium [Lipitor] 10 mg PO DAILY Celecoxib [CeleBREX] 200 mg PO DAILY Cyanocobalamin (Vitamin B-12) [Vitamin B-12] 1,000 mcg PO DAILY Dicyclomine [Bentyl] 10 mg PO TID Levothyroxine Sodium 137 mcg PO DAILY Multivitamins, Thera [Multivitamin (formulary)] 1 tab PO DAILY Discharge Medication List Atorvastatin Calcium [Lipitor] 10 mg PO DAILY 04/10/21 [History] Zolpidem Tartrate [Ambien Cr] 12.5 mg PO HS 04/10/21 [History] Celecoxib [CeleBREX] 200 mg PO DAILY 07/04/23 [History] Cholecalciferol [Vitamin D3 (10 Mcg = 400 Iu)] 10 mcg PO DAILY 07/04/23 [History] Cyanocobalamin (Vitamin B-12) [Vitamin B-12] 1,000 mcg PO DAILY 07/04/23 [History] Dicyclomine [Bentyl] 10 mg PO TID 07/04/23 [History] Levothyroxine Sodium 137 mcg PO DAILY 07/04/23 [History] Multivitamins, Thera [Multivitamin (formulary)] 1 tab PO DAILY 07/04/23 [History] Vitamin B Complex 1 cap PO DAILY 07/04/23 [History] diphenhydrAMINE HCL [Benadryl] 25 mg PO HS PRN 07/04/23 [History] Acetaminophen Tab [Tylenol] 650 mg PO Q6HR PRN tab 07/05/23 [Rx] EPINEPHrine (Auto Inject) [Epipen] 0.3 mg IM ONCE PRN #1 each 07/05/23 [Rx] Thiamine [Vitamin B-1] 100 mg PO DAILY #30 tab 07/05/23 [Rx] methylPREDNISolone Dose Pack [Medrol Dose Pack] 4 mg PO DIRECTED #21 tab 07/05/23 [Rx] Follow up Appointment(s)/Referral(s): Camilo Juarez MD [Primary Care Provider] - 07/08/23 1:30 pm Patient Instructions/Handouts: Insect Bite or Sting (DC), Hypokalemia (DC), Alcohol Withdrawal (DC), Lactic Acidosis (GEN) Activity/Diet/Wound Care/Special Instructions: Activity Limited until follow-up Follow-up with primary care provider this week Continue taking medications as prescribed Carry the EpiPen with you at all times Discharge Disposition: HOME SELF-CARE
== END 2023-07-05 12:59 | disposition home or self-care (01) ==
LOC: EC 13:11 → INTOOBSV 14:51 → 3SCARD 14:51
PROVIDERS: ADMIT Internal Medicine; ATTEND Internal Medicine
DX: T63.441A Toxic effect of venom of bees, accidental (unintentional), initial encounter (principal); E87.20 Acidosis, unspecified; E87.6 Hypokalemia; F10.10 Alcohol abuse, uncomplicated; E03.9 Hypothyroidism, unspecified; D75.89 Other specified diseases of blood and blood-forming organs; Z23 Encounter for immunization; Z87.891 Personal history of nicotine dependence; Z92.21 Personal history of antineoplastic chemotherapy; Z85.72 Personal history of non-Hodgkin lymphomas; Z79.899 Other long term (current) drug therapy; Z79.1 Long term (current) use of non-steroidal anti-inflammatories (NSAID); Z79.890 Hormone replacement therapy; Y90.0 Blood alcohol level of less than 20 mg/100 ml
CPT/HCPCS: 96376; 96365; 96366; 96375 ×3; 90471; 96361; 96372; 99291; 36415; 94640; 94760; 93005; 82747; 80053; 80048; 82607; 83605; 83735 ×2; 84132; 85025 ×2; 81003; 80320; 71045; 90715; G0378 ×2; J2060; J1100 ×2; J3411; J2405; J3475

== ENCOUNTER 2024-02-25 15:45 | Emergency (ER) | payer BC ==
[2024-02-25 15:51] VITALS: TEMP 97.6
--- NOTE | 2024-02-25 16:02 | ED ---
Dizziness HPI - General Chief Complaint: Dizziness Stated Complaint: Near syncope Time Seen by Provider: 02/25/24 16:00 Source: patient, EMS, RN notes reviewed, old records reviewed Mode of arrival: EMS Limitations: no limitations - History of Present Illness Initial Comments: This is a 68-year-old male from urgent care for lightheadedness and dizziness. Patient has persistent lightheadedness dizziness with nausea no vomiting. Near syncopal event prior to arrival presents from urgent care for evaluation regarding near syncope MD Complaint: dizziness, lightheadedness, near syncope -: hour(s) Timing: gradual onset Description: near-syncope History of Same: No History of Trauma: No Severity: moderate Improves With: remaining still Worsens With: nothing Associated Symptoms: denies other symptoms - Related Data Home Medications Medication Instructions Recorded Confirmed Atorvastatin Calcium [Lipitor] 10 mg PO DAILY 04/10/21 02/25/24 Zolpidem Tartrate [Ambien Cr] 12.5 mg PO HS 04/10/21 02/25/24 Celecoxib [CeleBREX] 200 mg PO DAILY 07/04/23 02/25/24 Cyanocobalamin (Vitamin B-12) 1,000 mcg PO DAILY 07/04/23 02/25/24 [Vitamin B-12] Dicyclomine [Bentyl] 10 mg PO TID 07/04/23 02/25/24 Levothyroxine Sodium 137 mcg PO DAILY 07/04/23 02/25/24 Multivitamins, Thera [Multivitamin 1 tab PO DAILY 07/04/23 02/25/24 (formulary)] Vitamin B Complex 1 cap PO DAILY 07/04/23 02/25/24 diphenhydrAMINE HCL [Benadryl] 50 mg PO HS PRN 07/04/23 02/25/24 Cholecalciferol [Vitamin D3 (25 50 mcg PO DAILY 02/25/24 02/25/24 Mcg = 1000 Iu)] Sertraline [Zoloft] 50 mg PO DAILY 02/25/24 02/25/24 Previous Rx's Medication Instructions Recorded EPINEPHrine (Auto Inject) [Epipen] 0.3 mg IM ONCE PRN #1 each 07/05/23 Allergies Allergy/AdvReac Type Severity Reaction Status Date / Time bee venom protein (honey bee) Allergy Anaphylaxis Verified 02/25/24 18:38 Review of Systems ROS Statement: Those systems with pertinent positive or pertinent negative responses have been documented in the HPI. ROS Other: All systems not noted in ROS Statement are negative. Past Medical History Past Medical History: Cancer, Thyroid Disorder Additional Past Medical History / Comment(s): neck pain. Diverticulitis. lymphoma with current chemo and clinical trail chemo History of Any Multi-Drug Resistant Organisms: None Reported Past Surgical History: Unable to Obtain Additional Past Surgical History / Comment(s): Cataracts. Sinus sx Past Anesthesia/Blood Transfusion Reactions: No Reported Reaction Past Psychological History: No Psychological Hx Reported Smoking Status: Former smoker Past Alcohol Use History: Abuse, Daily, Heavy Past Drug Use History: None Reported - Past Family History Father Family Medical History: Cancer Additional Family Medical History / Comment(s): colon cancer Mother Family Medical History: Cancer Additional Family Medical History / Comment(s): Ovarian Cancer General Exam Limitations: no limitations General appearance: alert, in no apparent distress Head exam: Present: atraumatic, normocephalic, normal inspection Eye exam: Present: normal appearance, PERRL, EOMI. Absent: scleral icterus, conjunctival injection, periorbital swelling ENT exam: Present: normal exam, mucous membranes moist Neck exam: Present: normal inspection. Absent: tenderness, meningismus, lymphadenopathy Respiratory exam: Present: normal lung sounds bilaterally. Absent: respiratory distress, wheezes, rales, rhonchi, stridor Cardiovascular Exam: Present: regular rate, normal rhythm, normal heart sounds. Absent: systolic murmur, diastolic murmur, rubs, gallop, clicks GI/Abdominal exam: Present: soft, normal bowel sounds. Absent: distended, tenderness, guarding, rebound, rigid Extremities exam: Present: normal inspection, full ROM, normal capillary refill. Absent: tenderness, pedal edema, joint swelling, calf tenderness Back exam: Present: normal inspection Neurological exam: Present: alert, oriented X3, CN II-XII intact Psychiatric exam: Present: normal affect, normal mood Skin exam: Present: warm, dry, intact, normal color. Absent: rash Course Vital Signs 02/25/24 02/25/24 02/25/24 15:46 15:54 17:04 Temperature 97.6 F Pulse Rate 65 65 Respiratory 20 18 Rate Blood Pressure 149/112 142/86 146/87 O2 Sat by Pulse 97 97 Oximetry 02/25/24 02/25/24 02/25/24 18:04 20:00 21:47 Temperature Pulse Rate 80 72 71 Respiratory 15 18 18 Rate Blood Pressure 133/71 124/63 135/89 O2 Sat by Pulse 99 95 98 Oximetry - Reevaluation(s) Reevaluation #1: 02/25/24 17:30 Medical records reviewed Reevaluation #2: Patient symptoms are improved Reevaluation #3: Patient informed of results and questions answered Reevaluation #4: Was pt. sent in by a medical professional or institution (RUIZ Pryor, SOCIAL RESEARCH ASSISTANT, urgent care, hospital, or [facility]...) When possible be specific @ -no Did you speak to anyone other than the patient for history (EMS, parent, family, police, friend...)? What history was obtained from this source @ -no Did you review nursing and triage notes (agree or disagree)? Why? @ -agree Are old charts reviewed (outside hosp., previous admission, EMS record, old EKG, old radiological studies, urgent care reports/EKG's, [facility] records)? Report findings @ -yes Differential Diagnosis (chest pain, altered mental status, abdominal pain women, abdominal pain men, vaginal bleeding, weakness, fever, dyspnea, syncope, headache, dizziness, GI bleed, back pain, seizure, CVA, palpatations, mental h ealth, musculoskeletal)? @ -prior EKG interpreted by me (3pts min.). @ -yes X-rays interpreted by me (1pt min.). @ -no CT interpreted by me (1pt min.). @ -Yes negative for acute disease U/S interpreted by me (1pt. min.). @ -no What testing was considered but not performed or refused? (CT, X-rays, U/S, labs)? Why? @ -none What meds were considered but not given or refused? Why? @ -none Did you discuss the management of the patient with other professionals (professionals i.e. RUIZ Pryor, SOCIAL RESEARCH ASSISTANT, lab, RT, psych nurse, social media developer, sewer hand, teacher, morale officer, case management manager)? Give summary @ -no Was smoking cessation discussed for >3mins.? @ -no Was critical care preformed (if so, how long)? @ -no Were there social determinants of health that impacted care today? How? (Homelessness, low income, unemployed, alcoholism, drug addiction, transportation, low edu. Level, literacy, decrease access to med. care, [facility], rehab)? @ -none Was there de-escalation of care discussed even if they declined (Discuss DNR or withdrawal of care, Hospice)? DNR status @ -no What co-morbidities impacted this encounter? (DM, HTN, Smoking, COPD, CAD, Cancer, CVA, ARF, Chemo, Hep., AIDS, mental health diagnosis, sleep apnea, morbid obesity)? @ -none Was patient admitted / discharged? Hospital course, mention meds given and route, prescriptions, significant lab abnormalities, going to OR and other p ertinent info. @ - 68 male to ER for evaluation of sudden onset of dizziness with symptoms resolving on arrival to the ER. Patient's symptoms remain resolved here in the ER he has no acute findings, patient feels well can be discharged home Discharge Undiagnosed new problem with uncertain prognosis? @ -no Drug Therapy requiring intensive monitoring for toxicity (Heparin, Nitro, Insulin, Cardizem)? @ -no Were any procedures done? @ -no Diagnosis/symptom? @ -Syncope Acute, or Chronic, or Acute on Chronic? @ -Acute Uncomplicated (without systemic symptoms) or Complicated (systemic symptoms)? @ -Complicated Side effects of treatment? @ -no Exacerbation, Progression, or Severe Exacerbation? @ -exacerbation Poses a threat to life or bodily function? How? (Chest pain, USA, NM, pneumonia, PE, COPD, DKA, ARF, appy, cholecystitis, CVA, Diverticulitis, Homicidal, Suicidal, threat to staff... and all critical care pts) @ -yes with syncopal event Reevaluation #5: Differential Syncope: Valvular disease, hypertrophic cardiomyopathy, pulmonary embolism, tamponade, tachycardia, bradycardia, NM, hypovolemia, hemorrhage, dissection, anemia, intracranial hemorrhage, seizure, hypoglycemia, carbon monoxide poisoning, this is not meant to be an all-inclusive list. EKG Findings - EKG Comments: EKG Findings:: EKG is sinus 66 NE 154 QRS 88 QTc 415 - EKG Results: EKG: interpreted by ABDOULD Medical Decision Making - Medical Decision Making 68 male to ER for evaluation of sudden onset of dizziness with symptoms resolving on arrival to the ER. Patient's symptoms remain resolved here in the ER he has no acute findings, patient feels well can be discharged home - Lab Data Result diagrams: 02/25/24 16:17 02/25/24 16:17 Lab Results 02/25/24 02/25/24 02/25/24 Range/Units 16:17 16:17 16:17 WBC 7.7 (3.8-10.6) k/uL RBC 3.86 L (4.30-5.90) m/uL Hgb 13.2 (13.0-17.5) gm/dL Hct 39.7 (39.0-53.0) % MCV 103.0 H (80.0-100.0) fL MCH 34.4 (25.0-35.0) pg MCHC 33.4 (31.0-37.0) g/dL RDW 12.4 (11.5-15.5) % Plt Count 224 (150-450) k/uL MPV 7.4 Neutrophils % 67 % Lymphocytes % 17 % Monocytes % 10 % Eosinophils % 2 % Basophils % 0 % Neutrophils # 5.1 (1.3-7.7) k/uL Lymphocytes # 1.3 (1.0-4.8) k/uL Monocytes # 0.8 (0-1.0) k/uL Eosinophils # 0.2 (0-0.7) k/uL Basophils # 0.0 (0-0.2) k/uL Macrocytosis Slight PT 10.8 (10.0-12.5) sec INR 1.0 (<1.2) APTT 23.7 (22.0-30.0) sec Sodium (137-145) mmol/L Potassium (3.5-5.1) mmol/L Chloride (98-107) mmol/L Carbon Dioxide (22-30) mmol/L Anion Gap mmol/L BUN (9-20) mg/dL Creatinine (0.66-1.25) mg/dL Est GFR (CKD-EPI)AfAm (>60 ml/min/1.73 sqM) Est GFR (CKD-EPI)NonAf (>60 ml/min/1.73 sqM) Glucose (74-99) mg/dL Plasma Lactic Acid Ryan (0.7-2.0) mmol/L Calcium (8.4-10.2) mg/dL Phosphorus (2.5-4.5) mg/dL Magnesium (1.6-2.3) mg/dL Total Bilirubin (0.2-1.3) mg/dL AST (17-59) U/L ALT (4-49) U/L Alkaline Phosphatase (38-126) U/L Troponin I (0.000-0.034) ng/mL NT-Pro-B Natriuret Pep pg/mL Total Protein (6.3-8.2) g/dL Albumin (3.5-5.0) g/dL Lipase (23-300) U/L TSH (0.465-4.680) mIU/L Urine Color Colorless Urine Appearance Clear (Clear) Urine pH 6.5 (5.0-8.0) Ur Specific Grove 1.017 (1.001-1.035) Urine Protein Negative (Negative) Urine Glucose (UA) Negative (Negative) Urine Ketones 1+ H (Negative) Urine Blood Negative (Negative) Urine Nitrite Negative (Negative) Urine Bilirubin Negative (Negative) Urine Urobilinogen <2.0 (<2.0) mg/dL Ur Leukocyte Esterase Negative (Negative) 02/25/24 02/25/24 02/25/24 Range/Units 16:17 16:17 16:17 WBC (3.8-10.6) k/uL RBC (4.30-5.90) m/uL Hgb (13.0-17.5) gm/dL Hct (39.0-53.0) % MCV (80.0-100.0) fL MCH (25.0-35.0) pg MCHC (31.0-37.0) g/dL RDW (11.5-15.5) % Plt Count (150-450) k/uL MPV Neutrophils % % Lymphocytes % % Monocytes % % Eosinophils % % Basophils % % Neutrophils # (1.3-7.7) k/uL Lymphocytes # (1.0-4.8) k/uL Monocytes # (0-1.0) k/uL Eosinophils # (0-0.7) k/uL Basophils # (0-0.2) k/uL Macrocytosis PT (10.0-12.5) sec INR (<1.2) APTT (22.0-30.0) sec Sodium 138 (137-145) mmol/L Potassium 4.6 (3.5-5.1) mmol/L Chloride 107 (98-107) mmol/L Carbon Dioxide 21 L (22-30) mmol/L Anion Gap 10 mmol/L BUN 24 H (9-20) mg/dL Creatinine 0.90 (0.66-1.25) mg/dL Est GFR (CKD-EPI)AfAm >90 (>60 ml/min/1.73 sqM) Est GFR (CKD-EPI)NonAf 88 (>60 ml/min/1.73 sqM) Glucose 99 (74-99) mg/dL Plasma Lactic Acid Ryan 1.2 (0.7-2.0) mmol/L Calcium 9.3 (8.4-10.2) mg/dL Phosphorus 2.9 (2.5-4.5) mg/dL Magnesium 1.8 (1.6-2.3) mg/dL Total Bilirubin 0.4 (0.2-1.3) mg/dL AST 34 (17-59) U/L ALT 26 (4-49) U/L Alkaline Phosphatase 67 (38-126) U/L Troponin I <0.012 (0.000-0.034) ng/mL NT-Pro-B Natriuret Pep 53 pg/mL Total Protein 6.7 (6.3-8.2) g/dL Albumin 4.2 (3.5-5.0) g/dL Lipase (23-300) U/L TSH 4.110 (0.465-4.680) mIU/L Urine Color Urine Appearance (Clear) Urine pH (5.0-8.0) Ur Specific Grove (1.001-1.035) Urine Protein (Negative) Urine Glucose (UA) (Negative) Urine Ketones (Negative) Urine Blood (Negative) Urine Nitrite (Negative) Urine Bilirubin (Negative) Urine Urobilinogen (<2.0) mg/dL Ur Leukocyte Esterase (Negative) 02/25/24 Range/Units 17:33 WBC (3.8-10.6) k/uL RBC (4.30-5.90) m/uL Hgb (13.0-17.5) gm/dL Hct (39.0-53.0) % MCV (80.0-100.0) fL MCH (25.0-35.0) pg MCHC (31.0-37.0) g/dL RDW (11.5-15.5) % Plt Count (150-450) k/uL MPV Neutrophils % % Lymphocytes % % Monocytes % % Eosinophils % % Basophils % % Neutrophils # (1.3-7.7) k/uL Lymphocytes # (1.0-4.8) k/uL Monocytes # (0-1.0) k/uL Eosinophils # (0-0.7) k/uL Basophils # (0-0.2) k/uL Macrocytosis PT (10.0-12.5) sec INR (<1.2) APTT (22.0-30.0) sec Sodium (137-145) mmol/L Potassium (3.5-5.1) mmol/L Chloride (98-107) mmol/L Carbon Dioxide (22-30) mmol/L Anion Gap mmol/L BUN (9-20) mg/dL Creatinine (0.66-1.25) mg/dL Est GFR (CKD-EPI)AfAm (>60 ml/min/1.73 sqM) Est GFR (CKD-EPI)NonAf (>60 ml/min/1.73 sqM) Glucose (74-99) mg/dL Plasma Lactic Acid Ryan (0.7-2.0) mmol/L Calcium (8.4-10.2) mg/dL Phosphorus 2.9 (2.5-4.5) mg/dL Magnesium 1.8 (1.6-2.3) mg/dL Total Bilirubin (0.2-1.3) mg/dL AST (17-59) U/L ALT (4-49) U/L Alkaline Phosphatase (38-126) U/L Troponin I (0.000-0.034) ng/mL NT-Pro-B Natriuret Pep pg/mL Total Protein (6.3-8.2) g/dL Albumin (3.5-5.0) g/dL Lipase 64 (23-300) U/L TSH (0.465-4.680) mIU/L Urine Color Urine Appearance (Clear) Urine pH (5.0-8.0) Ur Specific Grove (1.001-1.035) Urine Protein (Negative) Urine Glucose (UA) (Negative) Urine Ketones (Negative) Urine Blood (Negative) Urine Nitrite (Negative) Urine Bilirubin (Negative) Urine Urobilinogen (<2.0) mg/dL Ur Leukocyte Esterase (Negative) - EKG Data -: EKG Interpreted by Ri - Radiology Data Radiology results: report reviewed (CT angio chest abdomen pelvis negative for acute disease), image reviewed Disposition Clinical Impression: Dizziness Disposition: HOME SELF-CARE Condition: Good Instructions (If sedation given, give patient instructions): Dizziness (ED) Is patient prescribed a controlled substance at d/c from ED?: No Referrals: Camilo Juarez MD [Primary Care Provider] - 1-2 days Time of Disposition: 21:45
[2024-02-25] MEDS: SODIUM CHLORIDE 0.9% 1,000 ML IV STA (16:18)
[2024-02-25 16:36] LABS: Basophils % (A) 0 %; Eosinophils # (A) 0.2 k/uL (0-0.7); Eosinophils % (A) 2 %; HCT 39.7 % (39.0-53.0); HGB 13.2 gm/dL (13.0-17.5); Lymphocytes # (A) 1.3 k/uL (1.0-4.8); Lymphocytes % (A) 17 %; MCH 34.4 pg (25.0-35.0); MCHC 33.4 g/dL (31.0-37.0); Macrocytosis Slight; Mean Platelet Volume 7.4; Monocytes # (A) 0.8 k/uL (0-1.0); Monocytes % (A) 10 %; Neutrophils # (A) 5.1 k/uL (1.3-7.7); Neutrophils % (A) 67 %; Platelet Count 224 k/uL (150-450); RBC 3.86 m/uL (4.30-5.90); RDW 12.4 % (11.5-15.5); WBC 7.7 k/uL (3.8-10.6)
[2024-02-25 16:47] LABS: Partial Thromboplastin Time 23.7 sec (22.0-30.0); Prothrombin Time 10.8 sec (10.0-12.5)
[2024-02-25 16:49] LABS: ALT 26 U/L (4-49); AST 34 U/L (17-59); African American GFR (CKD) >90 (>60 ml/min/1.73 sqM); Albumin 4.2 g/dL (3.5-5.0); Alkaline Phosphatase 67 U/L (38-126); Anion Gap 10 mmol/L; Blood Urea Nitrogen 24 mg/dL (9-20); Calcium 9.3 mg/dL (8.4-10.2); Carbon Dioxide 21 mmol/L (22-30); Chloride 107 mmol/L (98-107); Glucose 99 mg/dL (74-99); Magnesium 1.8 mg/dL (1.6-2.3); Non-African American GFR(CKD) 88 (>60 ml/min/1.73 sqM); Phosphorus 2.9 mg/dL (2.5-4.5); Potassium 4.6 mmol/L (3.5-5.1); Sodium 138 mmol/L (137-145); Total Bilirubin 0.4 mg/dL (0.2-1.3); Total Protein 6.7 g/dL (6.3-8.2)
[2024-02-25 16:58] LABS: NT-Pro-B-Type Natriuretic Pept 53 pg/mL
[2024-02-25 17:29] LABS: Appearance,Urine Clear (Clear); Bilirubin,Urine Negative (Negative); Blood,Urine Negative (Negative); Color,Urine Colorless; Glucose,Urine (UA) Negative (Negative); Ketones,Urine 1+ (Negative); Leukocyte Esterase,Urine Negative (Negative); Nitrite,Urine Negative (Negative); PH, Urine 6.5 (5.0-8.0); Protein,Urine Negative (Negative); Specific Gravity,Urine 1.017 (1.001-1.035); Urobilinogen,Urine <2.0 mg/dL (<2.0)
[2024-02-25 17:50] LABS: Magnesium 1.8 mg/dL (1.6-2.3); Phosphorus 2.9 mg/dL (2.5-4.5)
--- NOTE | 2024-02-25 20:18 | CT ---
EXAMINATION TYPE: CT angio chest CT DLP: 420.4 mGycm, Automated exposure control for dose reduction was used. DATE OF EXAM: 02/25/2024 5:44 PM COMPARISON: CLINICAL INDICATION:Male, 68 years old with history of pain; c/o dizziness, nausea, near syncope. hx of lymphoma. TECHNIQUE/CONTRAST: CTA scan of the thorax is performed with IV Contrast, patient injected with 100 ml mL of Isovue 370, MIP images are created and reviewed these are created on a separate workstation.. FINDINGS: There is adequate contrast bolus and timing. PULMONARY ARTERIES: There is no evidence for a filling defect within the pulmonary vasculature to sug gest acute pulmonary embolism. Pulmonary trunk is normal in size. Trunk measures 2.3 CM. HEART: Heart size upper normal.Moderate coronary artery calcification and/or stents. Some mitral katia ve calcifications are also seen. Normal RV/LV ratio. AORTA: Mild atherosclerotic calcifications of the aorta and branches. Ascending aorta is 3.1 CM, cain cending is 2.8 CM. Aorta is considered within normal limits . No dissection. LOWER NECK: No significant findings. MEDIASTINUM: No enlarged mediastinal nodes. SOFT TISSUES/LYMPH NODES: Mild bilateral gynecomastia changes. No enlarged axillary nodes. LUNGS/ PLEURA: Mild subsegmental atelectasis in the lower lobes. No consolidation, pleural effusion, or pneumothorax. AIRWAY: Central airways are patent. MUSCULOSKELETAL: No acute osseous abnormality. Moderate disc degeneration changes are present through out the included thoracolumbar spine. UPPER ABDOMEN: No significant abnormality. Mild fatty infiltration of the pancreas. Stable appearance of adrenals, mildly thickened with some small calcifications on the left. IMPRESSION: 1. No evidence of pulmonary embolism. 2. No other acute chest process demonstrated.
[2024-02-25 20:38] VITALS: RESP 18
--- NOTE | 2024-02-25 20:41 | CT ---
EXAMINATION TYPE: CT abdomen pelvis w con CT DLP: 1159.9 mGycm, Automated exposure control for dose reduction was used. DATE OF EXAM: 02/25/2024 5:45 PM COMPARISON: CT abdomen and pelvis 05/13/2021 CLINICAL INDICATION:Male, 68 years old with history of pain; c/o dizziness, nausea, near syncope. hx of lymphoma. TECHNIQUE: Axial CT of the abdomen and pelvis. Sagittal and coronal reformats were created on a [employer] workstation. Contrast used:100 ml mL of Isovue 370 with IV Contrast, (none if empty) Oral contrast used: without Oral Contrast (none if empty) FINDINGS: LOWER CHEST: Mild subsegmental atelectasis. No consolidation or effusion. ABDOMEN LIVER: Unremarkable GALLBLADDER AND BILE DUCTS: Unremarkable gallbladder. No biliary ductal dilatation. PANCREAS: Mild fatty infiltration, without acute finding SPLEEN: Unremarkable. ADRENAL GLANDS: Mildly thickened with small calcifications on the left; the adrenals previously were significantly enlarged bilaterally with a smudgy/faceless appearance, were likely involved by lymphom a. KIDNEYS AND URETERS: Kidneys enhance symmetrically. No evidence of hydronephrosis or visible renal ca lculus. The ureters are unremarkable. Mild residual bilateral perinephric stranding. PELVIS BLADDER: Unremarkable REPRODUCTIVE: Unremarkable. ABDOMEN & PELVIS STOMACH AND BOWEL: No evidence of obstruction or acute inflammatory change. Appendix appears normal. There is fatty infiltration of the ileocecal valve. Several colonic diverticula are seen without sign s of diverticulitis. Evaluation is limited without enteric contrast, however there seems to be mild r esidual thickening in the sigmoid colon where there was relatively severe to getting previously as we ll as pericolonic stranding, which has significantly diminished relative to prior. No new areas of ab normality are detected. PERITONEUM/RETROPERITONEUM: No evidence of pneumoperitoneum or free fluid. VASCULATURE: Mild to moderate atherosclerotic calcifications are present throughout the abdominal aor ta and its branches. No evidence of aortic aneurysm. Mild fusiform ectasia of the infrarenal aorta me asures 2.7 x 2.7 cm axially. LYMPH NODES: No discrete enlarged nodes are seen in the abdomen or pelvis. SOFT TISSUE/ABDOMINAL WALL: Small fat-containing inguinal hernias. MUSCULOSKELETAL: No acute osseous abnormalities. Moderate disc degeneration changes are present throu ghout the thoracolumbar spine. Serpentine sclerosis again seen in the femoral heads. 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 There is no evidence of subchondral collapse. IMPRESSION: 1. No definite acute process demonstrated in the abdomen or pelvis. 2. The significant enlargement of the adrenals evident on the prior exam has markedly improved, esse ntially resolved, with mild residual thickening and small calcifications on the left. 3. Previous significant thickening of the sigmoid wall and surrounding inflammatory changes has reso lved, with mild residual thickening in this area likely representing posttreatment changes. 4. No new or worsening abnormalities seen to suggest recurrent neoplastic disease.
[2024-02-25 21:54] VITALS: BP 135/89; PULSE 71
== END 2024-02-25 21:56 | disposition home or self-care (01) ==
LOC: EC 15:45
DX: R42 Dizziness and giddiness (principal); R55 Syncope and collapse; Z87.891 Personal history of nicotine dependence; Z91.030 Bee allergy status
CPT/HCPCS: 36415; 93005; 83880; 80053; 83605; 83690; 83735; 84100; 84443; 84484; 85025; 85610; 85730; 81003; 71275; 74177; 99285; 96360; Q9967